=== PATIENT | male | born 1975 | race Caucasian/White ===

== ENCOUNTER 2016-10-12 03:00 | Emergency (ER) ==
[2016-10-12] MEDS ORDERED: NS 1,000 ML IV ONE (03:32)
[2016-10-12] MEDS ORDERED: ZOFRAN IV ONE ×2 (03:32→05:05)
[2016-10-12] MEDS ORDERED: DILAUDID IV ONE ×2 (03:32→05:05)
[2016-10-12] MEDS ORDERED: SODIUM CHLORIDE 0.9% INJ ONE (03:32)
[2016-10-12] MEDS ORDERED: PROTONIX IV ONE (03:32)
--- NOTE | 2016-10-12 03:39 | PROVIDER DOCUMENTATION ---
HPI-Abdominal Pain/GI Problem - General Chief Complaint: High Blood Sugar Stated Complaint: HIGH BLOOD SUGAR Time Seen by Provider: 10/12/16 03:30 Source: patient Allergies/Adverse Reactions: Patient Allergies Allergy/AdvReac Type Severity Reaction Status Date / Time metoclopramide HCl * Allergy Unknown Verified 10/12/16 03:27 [From [facility] Home Medications: Home Medication List Medication Instructions Recorded Confirmed Last Taken Type Amlodipine Besylate [Norvasc] 10 mg PO DAILY #30 tablet 02/17/16 10/12/16 Rx Escitalopram [Lexapro] 20 mg PO QAM #30 tablet 02/17/16 10/12/16 10/11/16 Rx Lipase/Protease/Amylase [Creon] 24,000 units PO TID CC #540 capsule 02/17/1603/2310/11/16 Rx Nadolol [Corgard] 40 mg PO DAILY #30 tablet 02/17/16 10/12/16 10/11/16 Rx Hydrocodone/APAP 5 mg/325 mg 1 each PO Q6H PRN PRN #30 tablet 10/06/16 10/12/16 10/11/16 Rx [[place]-5] Insulin Glargine [Lantus] 15 unit SUBQ NOW #90 insuln.pen 10/06/16 10/12/1602/20 Rx Multivitamins/Minerals [Centrum 1 each PO DAILY #0 tablet 10/06/16 10/12/1602/20 Rx Silver] Hydrocodone/Acetaminophen [[place] 1 each PO TID PRN PRN #15 tablet 10/12/16 Unknown Rx 7.5-325 Tablet] Insulin Aspart [Novolog Flexpen] 100 unit SQ 10/12/16 10/12/16 02:25 History Ondansetron Odt [Zofran 4 mg Odt] 4 mg PO Q6H PRN PRN #30 tablet 10/12/16 Unknown Rx Pantoprazole [Protonix] 40 mg PO DAILY@0700 #30 tablet 10/12/16 Unknown Rx - History of Present Illness-ABD Nature of Presenting Problems: pt6 w/hx recurrent pancreatits due etoh abuse /recent dx of dm -placed on insuline ..pt claim increase upper abdom pain for 24hrs //decrease apetite and nausea Abdominal Pain Onset Location: reports: epigastric Pain Radiation: reports: epigastric Quality of Pain: reports: burning Severity in ED: reports: moderate Onset/Duration: reports: 24 hours ago Timing: reports: still present Associated Symptoms: reports: heartburn, loss of appetite, nausea, vomiting Last BM: this morning Dark Stools Present?: reports: none noticed Rectal Bleeding: reports: none Rectal Pain: reports: none Bruising or Bleeding Gums?: No Similar Symptoms Previously?: No Recently seen or treated by another doctor?: No Review of Systems - Adult - REVIEW OF SYSTEMS - ADULT Constitutional: reports: see HPI Eyes: reports: see HPI All Other Systems: Reviewed and Negative Past History - Adult - PAST MEDICAL HISTORY-ADULT Review of Records: reports: Old Records Reviewed, Nursing Assessment Review, Medications Reviewed, Social history reviewed & non-contributory. Major Childhood Illnesses: reports: denies history Cardiovascular: reports: denies history, HTN Respiratory: reports: denies history Gastrointestinal: reports: pancreatitis, other (gastritis and esophagitis) Obstetrical/Gynecological: reports: denies history Genitourinary: denies: kidney disease, kidney stones, polycystic kidney disease , chronic UTI's Musculoskeletal: reports: denies history Neurological: reports: denies history Psychiatric: reports: depression Endocrine/Immune: reports: denies history Other Conditions: reports: denies history Additional History: Alcoholic - PRIOR SURGERIES/PROCEDURES Surgical/Procedure History: reports: EGD - PRIOR HOSPITALIZATIONS Prior Hospitalizations: reports: for similar symptoms - IMMUNIZATION STATUS Childhood Immunizations: See Nurse Assessment Flu Vaccine: See Nurse Assessment - FAMILY HISTORY Family History: reviewed, not pertinent - SOCIAL HISTORY Smoking: quit less than 1 year, less than 1 pack/day Substance Use: none presently/history of abuse, alcohol (last time 2 weeks ago) Living Situation: alone Physical Exam-General - PHYSICAL EXAM-ADULT Initial Vital Signs Reviewed: Yes - CONSTITUTIONAL General Appearance: alert, mild distress, thin - EYES Eyes: PERRL/EOMI - HEAD, EARS, NOSE, MOUTH & THROAT HENMT: normocephalic/atraumatic, normal ENT inspection, TMs normal, pharynx normal - NECK Neck: non-tender, full range of motion, supple - RESPIRATORY Respiratory: chest non-tender, lungs clear, normal breath sounds, no pleuratic chest pain, no respiratory distress, no accessory muscle use - CARDIOVASCULAR Cardiovascular: normal peripheral pulses, no edema, no gallop - GASTROINTESTINAL (ABDOMEN) Abdominal Exam: normal bowel sounds, soft, no organomegaly, no pulsatile mass, tenderness (epigastric and ruq) - LYMPHATIC Lymphatic: no adenopathy - MUSCULOSKELETAL Back Exam: normal inspection, no CVA tenderness, no vertebral tenderness Extremity: normal range of motion, non-tender, normal gait, normal inspection, no pedal edema, no calf tenderness, normal capillary refill - SKIN Integumentary: normal color, normal turgor, warm/dry - NEUROLOGIC 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 These instructions are being provided to you so you can have an understanding of how to care for yourself upon discharge. Upon discharge from the Emergency Department, you are responsible for making arrangements for follow-up care by a physician of your choice. Take all prescribed medications as directed. Return to the Emergency Department immediately for any new or worsening symptoms. You may call the Physician Referral phone number at [phone] to obtain a list of Physicians who are taking new patients. Prescriptions: Hydrocodone/Acetaminophen [[place] 7.5-325 Tablet] 1 each PO TID PRN PRN #15 tablet PRN Reason: Pain Pantoprazole [Protonix] 40 mg PO DAILY@0700 #30 tablet Ondansetron Odt [Zofran 4 mg Odt] 4 mg PO Q6H PRN PRN #30 tablet PRN Reason: Nausea And Vomiting Referrals: Darrell Tobias MD [Primary Care Provider] -
[2016-10-12 03:45] LABS: MANUAL DIFF NEEDED? NO; URINE CULTURE NEEDED? NO; URINE MICRO REVIEW NEEDED? NO; URINE SOURCE CLEAN CATCH
[2016-10-12 03:49] LABS: BASO% 0.4 % (0.0-0.8); EOS# 0.02 X1000 (0.0-0.7); EOS% 0.2 % (0.0-10.0); HEMATOCRIT 45.9 % (42.0-52.0); HEMOGLOBIN 16.1 g/dL (14.0-18.0); IMM GRAN# 0.04 X1000 (0.0-0.04); IMM GRAN% 0.4 % (0.0-0.5); LYMPH# 2.63 X1000 (1.2-3.4); LYMPH% 29.1 % (20.5-51.1); MCH 29.8 PG (27-31); MCHC 35.1 g/dL (33-37); MONO# 0.79 X1000 (0.11-0.59); MONO% 8.7 % (1.7-9.3); MPV 9.2 FL (7.4-10.4); NEUT% 61.2 % (42.2-75.2); PLT 248 X1000 (130-400)
[2016-10-12 03:50] LABS: BILIRUBIN URINE NEGATIVE (NEGATIVE); BLOOD URINE NEGATIVE (NEGATIVE); COLOR YELLOW; GLUCOSE URINE 100 mg/dL (NEGATIVE); LEUKOCYTES URINE NEGATIVE (NEGATIVE); NITRITE URINE NEGATIVE (NEGATIVE); PH URINE 5.5; PROTEIN URINE NEGATIVE (NEGATIVE); SP GRAVITY URINE 1.012; TURBIDITY URINE CLEAR (CLEAR); UR EPITHELIAL CELLS <10 /HPF (<10); URINE BACTERIA NEGATIVE /HPF; URINE RBC <10 /HPF (<10); URINE WBC <10 /HPF (<10); UROBILINOGEN URINE NORMAL (NORMAL)
[2016-10-12 04:28] LABS: AGAP 21; ALBUMIN 4.4 g/dL (3.5-5.0); ALKALINE PHOSPHATASE 96 U/L (32-122); AMYLASE 69 U/L (20-200); BUN 8 mg/dL (8-22); CHLORIDE 97 mmol/L (98-107); COSMO 283; GOT 27 U/L (10-34); GPT 52 U/L (10-44); LIPASE 14 U/L (13-60); POTASSIUM 3.7 mmol/L (3.5-5.1); SODIUM 140 mmol/L (136-145); TCO2 22 mmol/L (25-35); TOTAL BILIRUBIN 0.39 mg/dL (0.20-1.00)
[2016-10-12 05:25] VITALS: BP 131/88
== END 2016-10-12 05:37 | disposition home or self-care (01) ==
LOC: ED 03:00
DX: R10.13 Epigastric pain (principal); R11.2 Nausea with vomiting, unspecified; R12 Heartburn; R10.816 Epigastric abdominal tenderness; R10.811 Right upper quadrant abdominal tenderness; I10 Essential (primary) hypertension; F32.9 Major depressive disorder, single episode, unspecified; E11.9 Type 2 diabetes mellitus without complications; Z79.4 Long term (current) use of insulin; Z79.899 Other long term (current) drug therapy; Z87.891 Personal history of nicotine dependence
CPT/HCPCS: 80053; 81001; 82150; 82948; 83690; 85025; C9113; J1170; J2405; J7030; S0164

== ENCOUNTER 2016-10-13 23:14 | Emergency (ER) ==
--- NOTE | 2016-10-14 | PROVIDER DOCUMENTATION ---
HPI-Abdominal Pain/GI Problem - General Source: patient - History of Present Illness-ABD Nature of Presenting Problems: 41 YOWM WITH HX OF PANCREATITIS, WITH C/O PT STATES LUQ TENDERNESS. PT STATES HE IS A NEW DX DIABETIC. PT STATES HE THINKS HIS BLOOD SUGAR IS ELEVATED, BUT NOT SURE STATES HE DID NOT CHECK IT. Abdominal Pain Onset Location: reports: LUQ Pain Radiation: reports: no radiation Quality of Pain: reports: aching Severity in ED: reports: mild Onset/Duration: reports: 4-6 hours ago Timing: reports: still present Activities at Onset: reports: light activity Exposure to sick contacts?: No Modifying Factors: improves with: nothing Last BM: unsure Dark Stools Present?: reports: none noticed Rectal Bleeding: reports: none Rectal Pain: reports: none Emesis Description: reports: none Bruising or Bleeding Gums?: No Similar Symptoms Previously?: No Recently seen or treated by another doctor?: No <Omar Prather - Last Filed: 10/13/16 23:53> <Nigel Alba - Last Filed: 10/14/16 00:17> - General Stated Complaint: GENERAL Time Seen by Provider: 10/13/16 23:53 Allergies/Adverse Reactions: Patient Allergies Allergy/AdvReac Type Severity Reaction Status Date / Time metoclopramide HCl * Allergy Unknown Verified 10/12/16 03:27 [From [facility]] Home Medications: Home Medication List Medication Instructions Recorded Confirmed Last Taken Type Amlodipine Besylate [Norvasc] 10 mg PO DAILY #30 tablet 02/17/16 10/12/16 Rx Escitalopram [Lexapro] 20 mg PO QAM #30 tablet 02/17/16 10/12/16 10/11/16 Rx Lipase/Protease/Amylase [Creon] 24,000 units PO TID CC #540 capsule 02/17/1603/2310/11/16 Rx Nadolol [Corgard] 40 mg PO DAILY #30 tablet 02/17/16 10/12/16 10/11/16 Rx Hydrocodone/APAP 5 mg/325 mg 1 each PO Q6H PRN PRN #30 tablet 10/06/16 10/12/16 10/11/16 Rx [[place]-5] Insulin Glargine [Lantus] 15 unit SUBQ NOW #90 insuln.pen 10/06/16 10/12/1602/20 Rx Multivitamins/Minerals [Centrum 1 each PO DAILY #0 tablet 10/06/16 10/12/1602/20 Rx Silver] Hydrocodone/Acetaminophen [[place] 1 each PO TID PRN PRN #15 tablet 10/12/16 Unknown Rx 7.5-325 Tablet] Insulin Aspart [Novolog Flexpen] 100 unit SQ 10/12/16 10/12/16 02:25 History Ondansetron Odt [Zofran 4 mg Odt] 4 mg PO Q6H PRN PRN #30 tablet 10/12/16 Unknown Rx Pantoprazole [Protonix] 40 mg PO DAILY@0700 #30 tablet 10/12/16 Unknown Rx Review of Systems - Adult - REVIEW OF SYSTEMS - ADULT Constitutional: denies: chills, fever Eyes: reports: no symptoms reported Ears, Nose, Mouth & Throat: reports: no symptoms reported Cardiovascular: denies: chest pain, palpitations, syncope Respiratory: denies: cough, shortness of breath, wheezing Gastrointestinal: reports: abdominal pain (LUQ). denies: diarrhea, nausea, vomiting Genitourinary: reports: no symptoms reported Musculoskeletal: denies: back pain, neck pain Integumentary: reports: no symptoms reported Neurological: denies: dizziness/vertigo, headache/migraines, syncope Psychiatric: reports: no symptoms reported Endocrine: reports: no symptoms reported Hematologic/Lymphatic: reports: no symptoms reported Allergic/Immunologic: reports: no symptoms reported All Other Systems: Reviewed and Negative <Omar Prather - Last Filed: 10/13/16 23:53> Past History - Adult - PAST MEDICAL HISTORY-ADULT Review of Records: reports: Nursing Assessment Review, Medications Reviewed Cardiovascular: reports: HTN Gastrointestinal: reports: GERD, pancreatitis, other (gastritis and esophagitis) Genitourinary: denies: kidney disease, kidney stones, polycystic kidney disease , chronic UTI's Psychiatric: reports: depression Endocrine/Immune: reports: Diabetes Additional History: Alcoholic - PRIOR SURGERIES/PROCEDURES Surgical/Procedure History: reports: EGD - PRIOR HOSPITALIZATIONS Prior Hospitalizations: reports: for similar symptoms - IMMUNIZATION STATUS Childhood Immunizations: See Nurse Assessment Flu Vaccine: See Nurse Assessment - FAMILY HISTORY Family History: reviewed, not pertinent - SOCIAL HISTORY Substance Use: alcohol Alcohol Use Frequency: occasionally Number of drinks per typical drinking period:: 3-4 drinks Living Situation: alone <Omar Prather - Last Filed: 10/13/16 23:53> Physical Exam-General - CONSTITUTIONAL General Appearance: alert, mild distress - EYES Eyes: PERRL/EOMI, pink conjunctivae - HEAD, EARS, NOSE, MOUTH & THROAT HENMT: normocephalic/atraumatic, moist mucous membranes - NECK Neck: non-tender, full range of motion, supple - RESPIRATORY Respiratory: chest non-tender, lungs clear, normal breath sounds - CARDIOVASCULAR Cardiovascular: normal peripheral pulses, tachycardia - GASTROINTESTINAL (ABDOMEN) Abdominal Exam: normal bowel sounds, tenderness (LUQ) - LYMPHATIC Lymphatic: no adenopathy - MUSCULOSKELETAL Back Exam: normal inspection, no CVA tenderness, no vertebral tenderness Extremity: normal range of motion, non-tender - SKIN Integumentary: normal color, normal turgor, warm/dry - NEUROLOGIC Neurologic: grossly normal - PSYCHIATRIC Psych/Mental Status: oriented x 3 <Omar Prather - Last Filed: 10/13/16 23:53> Progress - PLAN OF CARE/RESULTS Progress/Plan/Lab Results: Orders Category Date Time Status Saline Loc DIRECTED Care 10/13/16 23:53 Inactive Hydromorphone [Dilaudid] Med 10/14/16 00:15 Discontinued 1 mg IM NOW ONE Ondansetron [Zofran] Med 10/14/16 00:15 Discontinued 4 mg IM NOW ONE Vital Signs Temp Pulse Resp BP Pulse Ox 10/13/16 23:30 99.0 F 133 H 20 155/112 97 metoclopramide HCl * [From Reglan] Allergy (Verified 10/12/16 03:27) Unknown Amlodipine Besylate [Norvasc] 10 mg PO DAILY #30 tablet 02/17/16 Escitalopram [Lexapro] 20 mg PO QAM #30 tablet 02/17/16 Lipase/Protease/Amylase [Creon] 24,000 units PO TID CC #540 capsule 02/17/16 Nadolol [Corgard] 40 mg PO DAILY #30 tablet 02/17/16 Hydrocodone/APAP 5 mg/325 mg [[place]-5] 1 each PO Q6H PRN PRN #30 tablet Insulin Glargine [Lantus] 15 unit SUBQ NOW #90 insuln.pen 10/06/16 Multivitamins/Minerals [Centrum Silver] 1 each PO DAILY #0 tablet 10/06/16 Hydrocodone/Acetaminophen [[place] 7.5-325 Tablet] 1 each PO TID PRN PRN #15 tablet 10/12/16 Insulin Aspart [Novolog Flexpen] 100 unit SQ 10/12/16 Ondansetron Odt [Zofran 4 mg Odt] 4 mg PO Q6H PRN PRN #30 tablet 10/12/16 Pantoprazole [Protonix] 40 mg PO DAILY@0700 #30 tablet 10/12/16 Laboratory 10/14/16 00:02 POC Glucose 169 H <Nigel Alba - Last Filed: 10/14/16 00:17> Departure <Omar Prather - Last Filed: 10/13/16 23:53> - Departure Time of Disposition Order: 00:11 Certified Medical Emergency: Emergent <Nigel Alba - Last Filed: 10/14/16 00:17> - Departure DIAGNOSIS: Fear associated with illness and body function Chronic pancreatitis Qualifiers: Pancreatitis type: alcohol induced Qualified Code(s): K86.0 - Alcohol-induced chronic pancreatitis Disposition: HOME 01 Condition: Stable Additional Instructions: Check your blood sugar if feeling bad to know what the blood sugar is. Take pain medications as prescribed. ED Follow Up Instructions: You have been treated by a care provider in the Emergency Department. These instructions are being provided to you so you can have an understanding of how to care for yourself upon discharge. Upon discharge from the Emergency Department, you are responsible for making arrangements for follow-up care by a physician of your choice. Take all prescribed medications as directed. Return to the Emergency Department immediately for any new or worsening symptoms. You may call the Physician Referral phone number at [phone] to obtain a list of Physicians who are taking new patients. Referrals: Darrell Tobias MD [Primary Care Provider] - Attestation - Scribe Verification/Attestation Scribe:: Omar Prather Acting as Scribe for:: Nigel Alba Scribe documention review:: This chart was documented by a scribe and accurately reflects the service the provider performed and the decisions made by the provider. <Omar Prather - Last Filed: 10/13/16 23:53> - Physician/ DUSTIN Attestation Patient care was provided by Advanced Practice Provider:: Yes Advanced Practice Provider:: Nigel Alba Advanced Practice Provider documentation review:: The Mid-level provider documentation, treatment plan and medical decision making was reviewed by the physician who agrees with all treatment and medical decision making by the MLP. <Nigel Alba - Last Filed: 10/14/16 00:17> Physician Attestation - Physician Attestation I, the provider, attest to the following statement:: Nigel Alba Physician documentation Attestation:: This documentation recorded by the scribe accurately reflects the service I personally performed and the decisions made by me. <Nigel Alba - Last Filed: 10/14/16 00:17>
[2016-10-14] MEDS ORDERED: DILAUDID IM ONE (00:15)
[2016-10-14] MEDS ORDERED: ZOFRAN IM ONE (00:15)
[2016-10-14 01:25] VITALS: BP 142/88
== END 2016-10-14 01:25 | disposition home or self-care (01) ==
LOC: ED 23:14
DX: K86.0 Alcohol-induced chronic pancreatitis (principal); R10.12 Left upper quadrant pain; R10.812 Left upper quadrant abdominal tenderness; R00.0 Tachycardia, unspecified; E11.9 Type 2 diabetes mellitus without complications; I10 Essential (primary) hypertension; F32.9 Major depressive disorder, single episode, unspecified; Z79.4 Long term (current) use of insulin; Z79.899 Other long term (current) drug therapy
CPT/HCPCS: 82948; 96372; J1170; J2405

== ENCOUNTER 2016-10-23 20:24 | Inpatient (IN) ==
--- NOTE | 2016-10-23 20:31 | PROVIDER DOCUMENTATION ---
[id number] Abuse/Overdose - General Stated Complaint: UNRESPONSIVE Time Seen by Provider: 10/23/16 20:28 Source: patient, EMS Unable to obtain history due to:: altered Allergies/Adverse Reactions: Allergies Allergy/AdvReac Type Severity Reaction Status Date / Time metoclopramide HCl * AdvReac DYSTONIA Verified 10/23/16 20:40 [From Reglan] Home Medications: Home Medication List Medication Instructions Recorded Confirmed Last Taken Type Amlodipine Besylate [Norvasc] 10 mg PO DAILY #30 tablet 02/17/16 10/24/16 09:00 Rx Escitalopram [Lexapro] 20 mg PO QAM #30 tablet 02/17/16 10/24/16 10/14/16 21:00 Rx Nadolol [Corgard] 40 mg PO DAILY #30 tablet 02/17/16 10/24/16 10/14/16 09:00 Rx Insulin Aspart [Novolog Flexpen] 17 units SQ TID 10/12/16 10/24/16 10/12/16 02: 25 History Insulin Glargine [Lantus] 18 unit SUBQ QAM 10/15/16 10/24/16 10/14/16 09:00 History Lipase/Protease/Amylase [Creon] 24,000 units PO DAILY 10/15/16 10/24/16 Unknown History Hydrocodone/APAP 7.5 mg/325 mg 1 each PO Q6H PRN PRN #30 tablet 10/19/16 Unknown Rx [[place]-7.5] Pantoprazole [Protonix] 40 mg PO BID #60 tablet 10/19/16 10/24/16 Unknown Rx Sucralfate [Carafate Liquid] 1 gm PO Q6HR #120 udc 10/19/16 Unknown Rx - History of Present Illness-Drug/Alcohol Nature of Presenting Problem: Pt is a 41 yom who presents to ER via EMS after being found lying on the floor at an AA meeting. Pt has hx of EtOH abuse and pancreatitis. EMS reports pt had blood sugar of 276 when they arrived on scene and was tachycardic.Pt has decreased responsiveness, but is alert and responds to stimuli. This episode of drinking or use began:: just prior to arrival Severity: reports: moderate Associated Symptoms: reports: fatigue, syncope (possible), trouble walking. denies: vomiting, weakness Review of Systems - Adult - REVIEW OF SYSTEMS - ADULT ROS:: limited per condition Constitutional: denies: chills, fever, fatique, night sweats, weight gain, weight loss Eyes: reports: no symptoms reported Ears, Nose, Mouth & Throat: reports: no symptoms reported Cardiovascular: reports: no symptoms reported Respiratory: reports: no symptoms reported Gastrointestinal: reports: no symptoms reported Genitourinary: reports: no symptoms reported Musculoskeletal: reports: no symptoms reported Integumentary: reports: no symptoms reported Neurological: reports: no symptoms reported Psychiatric: reports: no symptoms reported Endocrine: reports: no symptoms reported Hematologic/Lymphatic: reports: no symptoms reported Allergic/Immunologic: reports: no symptoms reported All Other Systems: Reviewed and Negative Past History - Adult - PAST MEDICAL HISTORY-ADULT Review of Records: reports: Nursing Assessment Review, Medications Reviewed Cardiovascular: reports: HTN Gastrointestinal: reports: GERD, pancreatitis, other (gastritis and esophagitis) Genitourinary: denies: kidney disease, kidney stones, polycystic kidney disease , chronic UTI's Psychiatric: reports: depression Endocrine/Immune: reports: Diabetes Additional History: Alcoholic - PRIOR SURGERIES/PROCEDURES Surgical/Procedure History: reports: EGD - PRIOR HOSPITALIZATIONS Prior Hospitalizations: reports: for similar symptoms - IMMUNIZATION STATUS Childhood Immunizations: See Nurse Assessment Flu Vaccine: See Nurse Assessment Physical Exam-General - PHYSICAL EXAM-ADULT Exam Limited by: pt altered - CONSTITUTIONAL General Appearance: alert, moderate distress, lethargic, obtunded. negative: appears well, no apparent distress, mild distress - PSYCHIATRIC Psych/Mental Status: anxious, depressed affect, other (decreased responsiveness but is awake). negative: normal mood/affect, normal thought content, normal thought process, oriented x 3, disheveled Progress - PLAN OF CARE/RESULTS Progress/Plan/Lab Results: Vital Signs - 24 hr 10/23/16 21:11 Temperature 97.5 F L Pulse Rate 106 H Respiratory 22 Rate Blood Pressure 115/82 O2 Sat by Pulse 98 Oximetry Orders Category Date Time Status Cardiac Monitoring DIRECTED Care 10/23/16 20:29 Active Saline Loc NOW Care 10/23/16 20:29 Active CHEST-PORTABLE [RAD] Stat Exams 10/23/16 20:[address] ABD/PELVIS W/ IV CONT ONLY [CT] Stat Exams 10/23/16 20:32 Taken HEAD W/O CONTRAST [CT] Stat Exams 10/23/16 20:30 Taken ACETAMINOPHEN [TDM] Stat Lab 10/23/16 20:35 Completed ALCOHOL BLOOD Stat Lab 10/23/16 20:35 Completed AMYLASE [CHEM] Stat Lab 10/23/16 20:35 Completed CBC WITH ELECTRONIC DIFF [HEME] Stat Lab 10/23/16 20:52 Completed CK PROFILE [SP CHEM] Stat Lab 10/23/16 20:35 Completed COMPREHENSIVE METABOLIC PANEL [CHEM] Stat Lab 10/23/16 20:35 Completed LIPASE [CHEM] Stat Lab 10/23/16 20:35 Completed MAGNESIUM [CHEM] Stat Lab 10/23/16 20:35 Completed PRO B-NATRIURETIC PEPTIDE Stat Lab 10/23/16 20:35 Completed PROTIME WITH INR [COAG] Stat Lab 10/23/16 20:35 Completed PTT [COAG] Stat Lab 10/23/16 20:35 Completed SALICYLATES [TDM] Stat Lab 10/23/16 20:35 Completed TROPONIN T Stat Lab 10/23/16 20:35 Completed URINALYSIS W/POSS RFLX CULT [URINALYSIS] Stat Lab 10/23/16 20:52 Completed URINE DRUG SCREEN Stat Lab 10/23/16 20:52 Completed EKG [EKG] Stat Ther 10/23/16 20:29 Ordered Laboratory Tests 10/23/16 10/23/16 10/23/16 20:35 20:35 20:35 WBC RBC Hgb Hct MCV MCH MCHC RDW Std Deviation Plt Count MPV Immature Gran % (Auto) Neut % (Auto) Lymph % (Auto) [place] % (Auto) Eos % (Auto) Baso % (Auto) Immature Gran # (Auto) Neut # (Auto) Lymph # (Auto) [place] # (Auto) Eos # (Auto) Baso # (Auto) PT 10.2 INR 0.96 PTT (Actin FS) 26.6 Sodium 140 Potassium 3.9 Chloride 98 Carbon Dioxide 20 L Anion Gap 22 BUN 14 Creatinine 1.0 Estimated GFR/1.73 m2 > 60 BUN/Creatinine Ratio 14 Glucose 269 H Calculated Osmolality 289 Calcium 9.2 Magnesium 2.1 Total Bilirubin 0.20 AST 21 ALT 25 Alkaline Phosphatase 110 Creatine Kinase 42 Troponin T Geq-Y-Kaumvhedcad Pept 22 Total Protein 6.6 Albumin 4.5 Globulin 2.1 Albumin/Globulin Ratio 2.1 Amylase 58 Lipase 18 Urine Source Urine Color Urine Turbidity Urine pH Ur Specific [place] Urine Protein Ur Glucose (Stick) Ur Ketones (Stick) Urine Blood Urine Nitrite Urine Bilirubin Urobilinogen Dipstick Urine Leukocytes Urine WBC (Auto) Urine RBC (Auto) U Epithel Cells (Auto) Urine Bacteria (Auto) Salicylates < 3.00 L Urine Opiates Screen Ur Oxycodone Screen Ur Methadone, Qual Acetaminophen < 1.2 L Ur Barbiturates Screen Ur Phencyclidine Scrn Ur Amphetamines Screen U Benzodiazepines Scrn Urine Cocaine Screen U Cannabinoids Screen Plasma/Serum Ethyl Alc 10/23/16 10/23/16 10/23/16 20:35 20:35 20:52 WBC 8.66 RBC 4.83 Hgb 14.3 Hct 40.7 L MCV 84.3 MCH 29.6 MCHC 35.1 RDW Std Deviation 13.2 Plt Count 226 MPV 9.5 Immature Gran % (Auto) 0.6 H Neut % (Auto) 70.9 Lymph % (Auto) 21.0 [place] % (Auto) 6.7 Eos % (Auto) 0.6 Baso % (Auto) 0.2 Immature Gran # (Auto) 0.05 H Neut # (Auto) 6.14 Lymph # (Auto) 1.82 [place] # (Auto) 0.58 Eos # (Auto) 0.05 Baso # (Auto) 0.02 PT INR PTT (Actin FS) Sodium Potassium Chloride Carbon Dioxide Anion Gap BUN Creatinine Estimated GFR/1.73 m2 BUN/Creatinine Ratio Glucose Calculated Osmolality Calcium Magnesium Total Bilirubin AST ALT Alkaline Phosphatase Creatine Kinase Troponin T < 0.010 Ewi-D-Txktyhxtqea Pept Total Protein Albumin Globulin Albumin/Globulin Ratio Amylase Lipase Urine Source Urine Color Urine Turbidity Urine pH Ur Specific [place] Urine Protein Ur Glucose (Stick) Ur Ketones (Stick) Urine Blood Urine Nitrite Urine Bilirubin Urobilinogen Dipstick Urine Leukocytes Urine WBC (Auto) Urine RBC (Auto) U Epithel Cells (Auto) Urine Bacteria (Auto) Salicylates Urine Opiates Screen Ur Oxycodone Screen Ur Methadone, Qual Acetaminophen Ur Barbiturates Screen Ur Phencyclidine Scrn Ur Amphetamines Screen U Benzodiazepines Scrn Urine Cocaine Screen U Cannabinoids Screen Plasma/Serum Ethyl Alc 10/23/16 10/23/16 20:52 20:52 WBC RBC Hgb Hct MCV MCH MCHC RDW Std Deviation Plt Count MPV Immature Gran % (Auto) Neut % (Auto) Lymph % (Auto) [place] % (Auto) Eos % (Auto) Baso % (Auto) Immature Gran # (Auto) Neut # (Auto) Lymph # (Auto) [place] # (Auto) Eos # (Auto) Baso # (Auto) PT INR PTT (Actin FS) Sodium Potassium Chloride Carbon Dioxide Anion Gap BUN Creatinine Estimated GFR/1.73 m2 BUN/Creatinine Ratio Glucose Calculated Osmolality Calcium Magnesium Total Bilirubin AST ALT Alkaline Phosphatase Creatine Kinase Troponin T Sqq-X-Aalisznspif Pept Total Protein Albumin Globulin Albumin/Globulin Ratio Amylase Lipase Urine Source CATH Urine Color STRAW Urine Turbidity CLEAR Urine pH 6.5 Ur Specific [place] 1.001 Urine Protein NEGATIVE Ur Glucose (Stick) 300 A Ur Ketones (Stick) 10 A Urine Blood NEGATIVE Urine Nitrite NEGATIVE Urine Bilirubin NEGATIVE Urobilinogen Dipstick NORMAL Urine Leukocytes NEGATIVE Urine WBC (Auto) <10 Urine RBC (Auto) <10 U Epithel Cells (Auto) <10 Urine Bacteria (Auto) NEGATIVE Salicylates Urine Opiates Screen NONE DETECTED Ur Oxycodone Screen NONE DETECTED Ur Methadone, Qual NONE DETECTED Acetaminophen Ur Barbiturates Screen NONE DETECTED Ur Phencyclidine Scrn NONE DETECTED Ur Amphetamines Screen NONE DETECTED U Benzodiazepines Scrn NONE DETECTED Urine Cocaine Screen NONE DETECTED U Cannabinoids Screen NONE DETECTED Plasma/Serum Ethyl Alc - EKG 1 Time of EKG reading by physician:: 00:32 EKG Read and Signed by:: Robert Christine EKG Interpretation (*Must complete 3 of following elements*): Normal Rate: 139 Rhythm: Sinus tachycardia - CT/MRI 1 CT Study: Abdomen, Pelvis Impression: See EMR Report (Pancreatic cyst, similar to the recent; No adjacent inflammation; There is at least a partial SBO; No other change) CT Results: See report 2 CT Study: Head Impression: See EMR Report CT Results: Negative - CONSULTS/PCP/HOSPITALIST Notification #1 *Consult/PCP/Hospitalist*: Dr. Beaulieu (Hospitalist) Time Discussed: 23:20 Consult Disposition: Admit Departure - Departure Time of Disposition Order: 23:19 DIAGNOSIS: Altered mental status Qualifiers: Altered mental status type: unspecified Qualified Code(s): R41.82 - Altered mental status, unspecified Disposition: ADMITTED INPATIENT 09 Certified Medical Emergency: Emergent Condition: Stable Attestation - Scribe Verification/Attestation Scribe:: Dez Meeks Acting as Scribe for:: Robert Christine Scribe documention review:: This chart was documented by a scribe and accurately reflects the service the provider performed and the decisions made by the provider.
[2016-10-23 21:04] LABS: MANUAL DIFF NEEDED? NO; URINE CULTURE NEEDED? NO; URINE MICRO REVIEW NEEDED? NO; URINE SOURCE CATH
[2016-10-23 21:08] LABS: INR 0.96; PROTIME 10.2 Seconds (9.2-11.7); PTT 26.6 Seconds (22.0-36.0)
[2016-10-23 21:08] LABS: BASO% 0.2 % (0.0-0.8); EOS# 0.05 X1000 (0.0-0.7); EOS% 0.6 % (0.0-10.0); HEMATOCRIT 40.7 % (42.0-52.0); HEMOGLOBIN 14.3 g/dL (14.0-18.0); IMM GRAN# 0.05 X1000 (0.0-0.04); IMM GRAN% 0.6 % (0.0-0.5); LYMPH# 1.82 X1000 (1.2-3.4); MCH 29.6 PG (27-31); MCHC 35.1 g/dL (33-37); MCV 84.3 FL (81-99); MONO# 0.58 X1000 (0.11-0.59); MONO% 6.7 % (1.7-9.3); MPV 9.5 FL (7.4-10.4); NEUT% 70.9 % (42.2-75.2); PLT 226 X1000 (130-400); RBC 4.83 XMIL (4.7-6.1)
[2016-10-23 21:10] LABS: BILIRUBIN URINE NEGATIVE (NEGATIVE); BLOOD URINE NEGATIVE (NEGATIVE); COLOR STRAW; GLUCOSE URINE 300 mg/dL (NEGATIVE); LEUKOCYTES URINE NEGATIVE (NEGATIVE); NITRITE URINE NEGATIVE (NEGATIVE); PH URINE 6.5; PROTEIN URINE NEGATIVE (NEGATIVE); SP GRAVITY URINE 1.001; TURBIDITY URINE CLEAR (CLEAR); UROBILINOGEN URINE NORMAL (NORMAL)
[2016-10-23 21:14] LABS: ACETAMINOPHEN < 1.2 ug/mL (10-30); AGAP 22; ALBUMIN 4.5 g/dL (3.5-5.0); ALKALINE PHOSPHATASE 110 U/L (32-122); AMYLASE 58 U/L (20-200); BUN 14 mg/dL (8-22); CALCIUM 9.2 mg/dL (8.8-10.2); CHLORIDE 98 mmol/L (98-107); CK PROFILE 42 U/L (24-204); COSMO 289; GOT 21 U/L (10-34); GPT 25 U/L (10-44); LIPASE 18 U/L (13-60); MAGNESIUM 2.1 mg/dL (1.5-2.7); POTASSIUM 3.9 mmol/L (3.5-5.1); SODIUM 140 mmol/L (136-145); TCO2 20 mmol/L (25-35); TOTAL PROTEIN 6.6 g/dL (6.3-8.3)
[2016-10-23 21:16] LABS: UR EPITHELIAL CELLS <10 /HPF (<10); URINE BACTERIA NEGATIVE /HPF; URINE RBC <10 /HPF (<10); URINE WBC <10 /HPF (<10)
[2016-10-23 21:36] LABS: UR AMPHETAMINES QUAL NONE DETECTED (NONE DETECT); UR BARBITUATES QUAL NONE DETECTED (NONE DETECT); UR BENZODIAZEPIN QUAL NONE DETECTED (NONE DETECT); UR CANNABINOIDS QUAL NONE DETECTED (NONE DETECT); UR COCAINE QUAL NONE DETECTED (NONE DETECT); UR METHADONE QUAL NONE DETECTED (NONE DETECT); UR OPIATES QUAL NONE DETECTED (NONE DETECT); UR OXYCODONE QUAL NONE DETECTED (NONE DETECT); UR PCP QUAL NONE DETECTED (NONE DETECT)
[2016-10-24] MEDS ORDERED: NS 1,000 ML IV ONE (01:30)
[2016-10-24] MEDS ORDERED: LOPRESSOR 10 MG in NS 50 ML IV ONE ×2 (01:30→06:02)
[2016-10-24] MEDS ORDERED: ZOFRAN IV ONE (02:26)
[2016-10-24] MEDS: LOVENOX SUBQ SCH (05:02)
[2016-10-24] MEDS: NS 1,000 ML IV SCH ×2 (05:02→15:43)
--- NOTE | 2016-10-24 05:28 | EKG Report ---
Test Performed on : 10/24/2016 00:32:05 AM Test Reason : Chest Pain Blood Pressure : / mmHG Vent. Rate : 139 BPM Atrial Rate : 139 BPM P-R Int : 136 ms QRS Dur : 100 ms QT Int : 290 ms P-R-T Axes : 047 081 052 degrees QTc Int : 441 ms Sinus tachycardia. Otherwise normal ECG When compared with ECG of 15-OCT-2016 00:50, (Unconfirmed) No significant change was found Unconfirmed Result
[2016-10-24] MEDS: NORCO-7.5 PO PRN ×3 (05:37→19:22)
[2016-10-24] MEDS ORDERED: LANOXIN IV ONE (06:02)
[2016-10-24] MEDS: HUMALOG SUBQ SCH ×4 (06:22→20:55)
[2016-10-24 06:59] LABS: ALLEN TEST YES; BE 1.6 mmoll (-3.0-3.0); BLOOD TYPE ARTERIAL; DRAW SITE R RADIAL; METHB 1.6 % (0.0-1.5); O2(CT) 20.8 mL/dL (15.0-23.0); PCO2(98.6) 34 mmHg (35-45); PO2(98.6) 89 mmHg (60-100); SAMPLE BLOOD; SAO2 99.3 % (95.0-100.0); THB 15.5 g/dL (11.5-17.4); pH(98.6) 7.47 (7.35-7.45)
[2016-10-24 07:01] LABS: MODALITY ROOM AIR
--- NOTE | 2016-10-24 07:04 | HISTORY AND PHYSICAL ---
PRIMARY CARE PROVIDER: Dr. Darrell Tobias. CHIEF COMPLAINT: Unresponsive. HISTORY OF PRESENT ILLNESS: This is a 41-year-old male who frequents our Hospital. He has a longstanding history of alcohol abuse and alcoholic pancreatitis and was recently admitted on 10/15/2016 for abdominal pain. He was newly diagnosed insulin dependent diabetic, which has been attributed to his chronic pancreatitis. Last hemoglobin A1c was 10.1. At any rate, he states that he has not been drinking and has been attending AA meetings. He was called to an AA meeting where he was found lying on the floor unresponsive. Blood sugar was 276 and the patient was noted to be tachycardic on arrival with very decreased responsiveness; however, he did respond to stimulus. In the emergency room a laboratory workup and a CT of his head and abdomen were obtained. The head showed no acute intracranial process. The abdomen showed pancreatic cyst similar to recent CT with no adjacent inflammation. It did note a small bowel obstruction. No other changes. EKG showed sinus tachycardia at 139. He will be admitted to the ICU for further evaluation and treatment. PAST MEDICAL HISTORY: 1. Alcohol abuse. Reportedly has not drank in over a month. 2. Chronic pancreatitis secondary to alcohol abuse. 3. Chronic liver disease secondary to alcohol abuse. 4. History of liver cirrhosis with esophageal varices. 5. Hypertension. 6. Acute kidney injury. This was secondary to hepatorenal syndrome and did require hemodialysis. 7. Depression. 8. History of alcohol withdrawal with delirium. 9. C. difficile intoxication. SURGICAL HISTORY: The patient denies past surgeries. SOCIAL HISTORY: Lives in [place]. He is . Denies illicit drug use or abuse. Has apparently not drank in over a month. Denies tobacco abuse. States he does occasionally use smokeless tobacco. FAMILY HISTORY: Positive for an uncle with lung cancer. Paternal grandmother and grandmother and aunt had diabetes mellitus. ALLERGY: Reglan. HOME MEDICATIONS: A home medications a list has not been reconciled. An order will be placed for nursing to reconcile home medications. REVIEW OF SYSTEMS: Fourteen point review of systems was attempted with the patient, but he was noted to have altered mentation. He denied drinking and did not answer any other questions. Pertinent positives are listed above in the HPI. PHYSICAL EXAMINATION: VITAL SIGNS: Temperature 97.5 degrees, pulse 149, sinus tachycardia. Respirations 20. Blood pressure 140/94, oxygen saturation 100% on room air. GENERAL: Disoriented 41-year-old male lying in the ER stretcher. Appears to be in no acute distress. HEENT: Head is atraumatic, normocephalic. Pupils equal, round, round reactive to light. Extraocular eye movements could not be tested as patient will not follow commands. Sclerae is anicteric. Conjunctivae is pink. Oral mucosa is dry. NECK: Supple. Trachea is midline. S1, S2 appreciated. Regular rhythm. Sinus tachycardia noted on monitor. No murmurs, gallops, rubs. LUNGS: Clear to auscultation bilaterally. No rhonchi, wheezes or rales. ABDOMEN: Soft, nondistended, nontender. Bowel sounds present in all 4 quadrants. Normoactive. No pulsatile mass. No organomegaly. EXTREMITIES: No clubbing, cyanosis, or edema. 2+ pedal pulses. NEUROLOGICAL: The patient does not fully respond to questioning. He will not answer questions about orientation. He also will not follow commands to evaluate the cranial nerves. DIAGNOSTIC DATA: CT of the head showed no acute intracranial process. CT of the abdomen did show chronic changes of the pancreas which are similar to previous CT and a partial small-bowel obstruction. LABORATORY DATA: CBC within normal limits. Coags within normal limits. Sodium 140, potassium 3.9, chloride 98, carbon dioxide 20, BUN 14, creatinine 1. Glucose 269, magnesium 2.1. CK and troponin within normal limits. Urine unremarkable. Toxicology screen is negative. Alcohol screening is negative. PLAN: 1. Syncope of unknown etiology. Echocardiogram and carotid ultrasound in a.m. 2. Encephalopathy. No known unknown etiology an arterial blood gas is pending. The patient again does reflex to stimulus, but does not follow commands well. 3. Sinus tachycardia. Continue patient's beta blockers. Give metoprolol 10 mg IV push in the emergency room. Normal saline at 100 mL an hour after a 1 L normal saline bolus. The patient will be placed in the ICU for close monitoring. 4. Insulin-dependent diabetes mellitus. Orders in place for nursing to reconcile home medications. We will give sliding scale insulin. 5. Hypertension. Continue Norvasc. Further recommendations per patient's clinical course. Dictated by RUFUS Platt for Jesus Beaulieu MD
--- NOTE | 2016-10-24 07:36 | Diag Imaging Result Document ---
PROCEDURE NAME: CHEST-PORTABLE - 10/23/2016 PORTABLE CHEST: COMPARISON: Compared to 10/23/2016. FINDINGS: Poor inspiratory effort. The heart is borderline mildly prominent. The vessels are not distended. No consolidation. No pleural effusions identified. IMPRESSION: Negative chest.
[2016-10-24] MEDS: ZOFRAN IV PRN ×3 (07:39→19:23)
--- NOTE | 2016-10-24 07:59 | Diag Imaging Result Document ---
PROCEDURE NAME: CT ABD/PELVIS W/ IV CONT ONLY - 10/23/2016 CT ABDOMEN PELVIS WITH INTRAVENOUS CONTRAST, 10/23/2016: A CT dose reduction protocol was used. COMPARISON: 10/01/2016. FINDINGS: The lung bases are clear and the heart size is normal. Stable patchy lucencies in the liver. Stable pancreatic pseudocyst at the pancreatic body. Stable severe pancreatic atrophy. Spleen size remains borderline. There is extremely severe patient motion artifact. There are some dilated loops of small bowel, nonspecific. There may be a partial small- bowel obstruction or ileus. This is probably caused by the pancreatic process. The more distal bowel further away from this is collapsed and normal in appearance. Bony structures are intact. IMPRESSION: 1. Stable severe pancreatic atrophy and pseudocyst. 2. Small-bowel dilation in the region of the pancreas. There is probably partial obstruction or ileus as a result. 3. Stable patchy lucencies in the liver. MTDD
[2016-10-24] MEDS: CORGARD PO SCH (08:31)
[2016-10-24] MEDS: CREON PO SCH (08:31)
[2016-10-24] MEDS: NORVASC PO SCH (08:32)
[2016-10-24] MEDS ORDERED: LEXAPRO PO SCH (09:00)
[2016-10-24] MEDS ORDERED: PROTONIX PO SCH (09:00)
--- NOTE | 2016-10-24 09:11 | Diag Imaging Result Document ---
PROCEDURE NAME: HEAD W/O CONTRAST - 10/23/[address]: A CT dose reduction protocol was used. COMPARISON: None. FINDINGS: The ventricles and sulci are normal in size and contour. There is no mass, hemorrhage, or evidence of acute ischemia. The bony calvaria is intact. The visualized paranasal sinuses and mastoid air cells are clear. IMPRESSION: Negative head CT. MTDD
[2016-10-24 09:54] LABS: HEMOGLOBIN A1C 8.6 % (4.8-6.0)
[2016-10-24] MEDS ORDERED: SODIUM CHLORIDE 0.9% INJ SCH (13:00)
[2016-10-24] MEDS: PROTONIX IV SCH (13:20)
--- NOTE | 2016-10-24 16:07 | PROGRESS NOTE ---
DATE: 10/24/2016 SUBJECTIVE: Patient has been admitted by the hospitalist overnight. Apparently he had went on an alcohol drinking binge yesterday and subsequently had development of severe pain in his epigastrium. Went to an AA meeting where he had a spell of severe pain and ambulance was summoned and he was brought in for further evaluation. By that time, blood alcohol level was negative. The patient says he had been binge drinking yesterday. He had been sober for about a month prior to that. He complains of severe abdominal pain. OBJECTIVE: Vital signs: Afebrile, pulse 145, respirations 16, blood pressure 139/97. CV: Tachycardia, regular rhythm. Lungs: CTA. Abdomen: Soft. Active bowel sounds. Diffuse tenderness across the upper abdomen, most prominent right epigastrium. Extremities: No calf tenderness, cords, or edema. Neurologic: Cranial nerves 2 through 12 are intact. Nonfocal. LAB DATA: Reviewed from yesterday shows white count 8.6, hemoglobin 14.3, platelets 226,000. INR 0.96. ABG this morning is satisfactory on room air, 7.47 pH, pCO2 34, PO2 89, HC03 26. CMP is normal with normal amylase and lipase. ASSESSMENT: 1. Chronic pancreatitis with pancreatic pseudocyst. 2. Lucencies in the liver per repeat CAT scans. 3. Alcoholism, relapsing. 4. 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 5. Remote history of Clostridium difficile colitis. 6. Depression. PLAN: For now continue him on bowel rest. Monitor labs in the morning to include BMP, magnesium, TSH, CBC. Continue IV hydration. Continue nadolol, Creon, Lexapro, Norvasc, [place] for pain, Lovenox for prophylaxis of DVT. Place him back on PPI as he had the recent ulcerations in his duodenum. [employer] the patient to quit alcohol. He is aware.
--- NOTE | 2016-10-24 18:33 | ECHO REPORT ---
ORDER DATE: 10/24/2016 MEASUREMENTS: Left ventricular internal diameter in diastole 4.2, in systolic diameter 2.8, septal thickness 1.5, posterior wall thickness 1.2, left atrium 3.5, aortic root 3.4. SUMMARY: 1. Fair quality acoustic windows. 2. Aortic, mitral, tricuspid and pulmonic valves are without obstruction abnormality. The aortic root is normal size. 3. Normal left ventricular chamber size with mild concentric left hypertrophy is suggested. Estimated left ejection fraction approximately 65%. No regional wall motion at evident. Doppler suggests grade 1 left ventricular diastolic dysfunction. 4. Left atrium, right atrium, right ventricle are of normal size with grossly preserved right ventricular systolic performance. 5. No pericardial effusion. 6. Appearance of inferior vena cava suggests normal central venous pressure. CONCLUSION: 1. No significant valvular abnormality. 2. Mild concentric left hypertrophy. 3. Estimate left ejection fraction 65%. 4. Doppler suggests grade 1 left ventricular diastolic dysfunction.
[2016-10-25] MEDS: PROTONIX IV SCH ×2 (00:06→12:55)
[2016-10-25] MEDS: NS 1,000 ML IV SCH ×2 (00:06→10:49)
[2016-10-25] MEDS: ZOFRAN IV PRN ×3 (00:06→12:34)
[2016-10-25] MEDS: NORCO-7.5 PO PRN ×2 (00:30→06:29)
[2016-10-25] MEDS: LOVENOX SUBQ SCH (05:18)
[2016-10-25 05:25] LABS: MANUAL DIFF NEEDED? NO
[2016-10-25 05:51] LABS: BASO% 0.2 % (0.0-0.8); EOS# 0.02 X1000 (0.0-0.7); EOS% 0.4 % (0.0-10.0); HEMATOCRIT 34.3 % (42.0-52.0); HEMOGLOBIN 11.7 g/dL (14.0-18.0); LYMPH# 1.57 X1000 (1.2-3.4); LYMPH% 31.5 % (20.5-51.1); MCH 29.7 PG (27-31); MCHC 34.1 g/dL (33-37); MCV 87.1 FL (81-99); MONO# 0.28 X1000 (0.11-0.59); MONO% 5.6 % (1.7-9.3); MPV 8.9 FL (7.4-10.4); NEUT% 62.3 % (42.2-75.2); PLT 184 X1000 (130-400); RBC 3.94 XMIL (4.7-6.1)
[2016-10-25 05:55] LABS: AGAP 12; BUN 8 mg/dL (8-22); CALCIUM 8.2 mg/dL (8.8-10.2); CHLORIDE 105 mmol/L (98-107); COSMO 280; MAGNESIUM 1.8 mg/dL (1.5-2.7); POTASSIUM 3.4 mmol/L (3.5-5.1); SODIUM 140 mmol/L (136-145); TCO2 23 mmol/L (25-35)
[2016-10-25] MEDS: HUMALOG SUBQ SCH ×3 (06:12→15:41)
[2016-10-25] MEDS: CORGARD PO SCH (08:24)
[2016-10-25] MEDS: NORVASC PO SCH (08:25)
[2016-10-25] MEDS: CREON PO SCH (08:25)
[2016-10-25] MEDS ORDERED: NORCO-7.5 PO PRN (08:26)
[2016-10-25] MEDS ORDERED: LEXAPRO PO SCH (09:00)
[2016-10-25 17:12] VITALS: BP 124/90
--- NOTE | 2016-10-26 10:57 | DISCHARGE SUMMARY ---
ADMISSION DATE: 10/23/2016 DISCHARGE DATE: 10/25/2016 DIAGNOSES: 1. Syncope without definite etiology. 2. History of longstanding alcoholism with patient admitting to alcohol drinking binge for 24 hours prior to admission. 3. Chronic pancreatitis with pancreatic pseudocyst. Consideration for pancreatic mass. 4. Nonspecific liver lesions. 5. Cirrhosis of the liver. 6. History of encephalopathy. 7. Sinus tachycardia. 8. Insulin-dependent diabetes mellitus. 9. Hypertension. 10. Depression. 11. Remote history of renal insufficiency related to hepatorenal syndrome requiring treatment in the ICU within the past year and a half. 12. History of Clostridium difficile colitis remotely. PROCEDURES: 1. Chest x-ray, negative. 2. CT scan of the head, without contrast, negative. 3. CT abdomen and pelvis with IV contrast only revealing severe pancreatic atrophy and pseudocyst stable. Small bowel dilation in the region of the pancreas possibly representing ileus. Also stable patchy lucencies in the liver. 4. Echocardiogram showing EF of 65%. No valvular abnormality. Mild concentric left ventricle hypertrophy grade 1, left ventricular diastolic dysfunction. 5. Carotid Dopplers negative. REASON FOR ADMISSION AND HOSPITAL COURSE: The patient is a 41-year-old white male followed in my medical practice who suffers from long-standing alcoholism and has had chronic pancreatitis and pancreatic pseudocyst. He has been followed by Dr. Encarnacion in this regard. He also suffers from cirrhosis. Dr. Encarnacion has had him scheduled for an outpatient evaluation per HOLLIE Sigala, in [place] for additional studies to his pancreas via ultrasound. The patient had come in with a syncopal event that occurred at an AA meeting. When I saw the patient later during the hospitalization he told me he had been drinking binge drinking for 24 hours prior to the admission. His blood alcohol level on admission was negative. There had been no history of seizure noted by witnesses. Patient had workup to include that as listed as above to include the negative carotids, echocardiogram, CT head, stable abdominal and pelvis CT. Patient stooled prior to discharge and was eating well. Monitored in the ICU without dysrhythmias. He did suffer from sinus tachycardia initially which resolved with resumption of his medications and saline administration and IV metoprolol. Blood pressure was well controlled on his home medications. He was eating well on a GI soft diet and it was felt he could be discharged home to follow up in my office in 1 week. DISCHARGE MEDICATIONS: Will be his home medications that include Norvasc 10 mg p.o. daily, Lexapro 20 mg p.o. daily, [place] 7.5 mg p.o. q.6 hours p.r.n. pain, Creon 38481 units 2 p.o. t.i.d. with meals. Nadolol 40 mg p.o. daily. Protonix 40 mg p.o. b.i.d., Carafate liquid 1 g p.o. q.6h hours. Lantus 18 units subcu q.a.m., NovoLog flex pen, he is taking sliding scale generally taking about 17 units t.i.d. with meals.
== END 2016-10-25 18:59 | disposition home or self-care (01) | DRG 312 ==
LOC: EDBD → EDUNIT# → ED 20:24 → ICU 20:25 → UNDOADMIN 10-24 02:20 → ICU 10-24 02:20
PROVIDERS: ADMIT Family Medicine; ATTEND Family Medicine
DX: R55 Syncope and collapse (principal); K86.3 Pseudocyst of pancreas; K70.30 Alcoholic cirrhosis of liver without ascites; K86.0 Alcohol-induced chronic pancreatitis; I10 Essential (primary) hypertension; K76.9 Liver disease, unspecified; F10.20 Alcohol dependence, uncomplicated; K21.9 Gastro-esophageal reflux disease without esophagitis; F32.9 Major depressive disorder, single episode, unspecified; E11.9 Type 2 diabetes mellitus without complications; Z80.1 Family history of malignant neoplasm of trachea, bronchus and lung; Z83.3 Family history of diabetes mellitus; Z79.4 Long term (current) use of insulin; R00.0 Tachycardia, unspecified
CPT/HCPCS: 70450; 71010; 74177; 80048; 80053; 81001; 82009; 82150; 82550; 82805; 82948; 83036; 83605; 83690; 83735; 83880; 84443; 84484; 85025; 85610; 85730; 93005; 93306; 93880; 96365; 96375; C9113; G0480; J1160; J1650; J1815; J2405; J7030; Q9967; 80320; 80324; 80329; 80345; 80346; 80349; 80353; 80358; 80361; 80365; 83992; S0164

== ENCOUNTER 2016-11-13 16:11 | Inpatient (IN) ==
[2016-11-13 16:46] LABS: MANUAL DIFF NEEDED? NO
[2016-11-13] MEDS ORDERED: NS 1,000 ML IV ONE ×2 (16:58→21:02)
[2016-11-13 16:59] LABS: BASO% 0.7 % (0.0-0.8); EOS# 0.13 X1000 (0.0-0.7); EOS% 1.6 % (0.0-10.0); HEMOGLOBIN 15.2 g/dL (14.0-18.0); IMM GRAN# 0.04 X1000 (0.0-0.04); IMM GRAN% 0.5 % (0.0-0.5); LYMPH# 2.09 X1000 (1.2-3.4); LYMPH% 25.2 % (20.5-51.1); MCH 29.6 PG (27-31); MCHC 35.3 g/dL (33-37); MCV 83.7 FL (81-99); MONO# 0.73 X1000 (0.11-0.59); MONO% 8.8 % (1.7-9.3); MPV 9.3 FL (7.4-10.4); NEUT% 63.2 % (42.2-75.2); PLT 283 X1000 (130-400); RBC 5.14 XMIL (4.7-6.1)
[2016-11-13] MEDS ORDERED: COMPAZINE IV ONE (17:00)
[2016-11-13 17:03] LABS: INR 0.89 (0.86-1.15); PROTIME 12.4 Seconds (12.1-15.5)
[2016-11-13 17:04] LABS: PTT PL 23.8 Seconds (22.6-43.9)
[2016-11-13 17:07] LABS: AGAP 16; ALBUMIN 4.9 g/dL (3.5-5.0); ALKALINE PHOSPHATASE 124 U/L (32-122); BUN 15 mg/dL (8-22); CALCIUM 9.1 mg/dL (8.8-10.2); CHLORIDE 97 mmol/L (98-107); CK PROFILE 76 U/L (24-204); COSMO 271; GOT 56 U/L (10-34); GPT 44 U/L (10-44); POTASSIUM 4.2 mmol/L (3.5-5.1); SODIUM 134 mmol/L (136-145); TCO2 21 mmol/L (25-35); TOTAL PROTEIN 7.2 g/dL (6.3-8.3)
[2016-11-13] MEDS ORDERED: NS 1,000 ML ONE (17:19)
[2016-11-13 17:23] LABS: AMYLASE 74 U/L (20-200); LIPASE 19 U/L (13-60)
--- NOTE | 2016-11-13 18:14 | Diag Imaging Result Document ---
PROCEDURE NAME: FLAT/UPRIGHT ABD/1 VIEW CHEST - 11/13/2016 ABDOMEN 2 VIEWS: COMPARISON: CT from 11/09/2016. FINDINGS: There is a nonobstructive bowel gas pattern. No free air or abnormal calcifications. IMPRESSION: No acute disease.
--- NOTE | 2016-11-13 18:15 | Diag Imaging Result Document ---
PROCEDURE NAME: CHEST-2 VIEWS - 11/13/2016 CHEST X-RAY 2 VIEWS: COMPARISON: 10/23/2016, 07/29/2016. FINDINGS: There is a stable calcified granuloma in the right lung base. No focal infiltrates, pneumothorax, or pleural effusion. Heart size is normal. IMPRESSION: Negative exam.
[2016-11-13] MEDS ORDERED: MORPHINE IV ONE (19:07)
[2016-11-13] MEDS ORDERED: ZOFRAN IV ONE ×2 (19:07→20:59)
[2016-11-13] MEDS ORDERED: DILAUDID IV ONE (21:01)
[2016-11-13] MEDS ORDERED: CATAPRES PO ONE (23:49)
[2016-11-13] MEDS ORDERED: CATAPRES ONE (23:51)
[2016-11-14] MEDS ORDERED: APRESOLINE IV ONE (01:50)
[2016-11-14] MEDS: DILAUDID IM PRN ×3 (02:28→09:46)
[2016-11-14] MEDS: ZOFRAN IV PRN (02:29)
[2016-11-14 03:06] LABS: URINE CULTURE PL NEEDED? NO
[2016-11-14 03:31] LABS: BILIRUBIN URINE NEGATIVE (NEGATIVE); BLOOD URINE NEGATIVE (NEGATIVE); CLARITY CLEAR (CLEAR); COLOR YELLOW; GLUCOSE URINE NEGATIVE (NEGATIVE); LEUKOCYTES URINE NEGATIVE (NEGATIVE); NITRITE URINE NEGATIVE (NEGATIVE); PROTEIN URINE NEGATIVE (NEGATIVE); SP GRAVITY URINE 1.015; UROBILINOGEN URINE NORMAL
[2016-11-14 03:39] LABS: URINE EPITHELIAL CELLS <10 /HPF (<10); URINE RBC <10 /HPF (<10); URINE SOURCE CLEAN CATCH; URINE WBC <10 /HPF (<10)
[2016-11-14] MEDS: PHENERGAN IV PRN ×5 (06:26→23:27)
--- NOTE | 2016-11-14 09:24 | Diag Imaging Result Document ---
PROCEDURE NAME: CT ABD/PELVIS W/ IV CONT ONLY - 11/13/2016 CT OF THE ABDOMEN WITH INTRAVENOUS CONTRAST: FINDINGS: There is a calcified granuloma in the right lower lobe as there was on 11/09/2016. There is some fatty change in the liver around the inferior vena cava and caudate lobe. This was also present on the previous study. There are no apparent gallstones or inflammatory changes around the gallbladder. There are granulomata in the spleen which remain slightly enlarged measuring slightly over 13 cm in AP dimension. There is a well-circumscribed slightly heterogeneous hypodense structure within the body of the pancreas which has a long axis dimension of 6.1 cm. This is slightly larger than it was on 11/09/2016, at which time it measured 5.9 cm which was also the case on 10/23/2016. This is probably a chronic pseudocyst with necrotic debris and slight variations in size over the last several examinations are probably not clinically significant. There is some fluid throughout the small bowel as there has been over the last several examinations. There is stool and gas in the colon. The appendix remains normal in appearance. CT OF THE PELVIS WITH INTRAVENOUS CONTRAST: The regional skeleton is stable in appearance. There is no evidence of free fluid or significant adenopathy. IMPRESSION: 1. Chronic pancreatic fluid collection. This has not changed significantly since at least 10/23/2016. There has been very little change since 07/29/2016. The patient has had a total of [address] scans over the interval for this abnormality. 2. Patchy hepatic steatosis. 3. Borderline splenomegaly. 4. Varices.
[2016-11-14] MEDS: SODIUM CHLORIDE 0.9% INJ PRN ×4 (09:46→18:36)
[2016-11-14] MEDS ORDERED: DILAUDID IM PRN (10:05)
[2016-11-14] MEDS: NS 1,000 ML IV SCH ×2 (12:11→21:11)
[2016-11-14] MEDS: APRESOLINE IV PRN ×3 (12:11→23:36)
[2016-11-14] MEDS: ZOSYN 3.375 GM/NS 3.375 GM/50 ML IVPB IV SCH ×3 (12:11→23:27)
[2016-11-14] MEDS: DILAUDID IV PRN ×6 (12:12→23:27)
--- NOTE | 2016-11-14 12:55 | HISTORY AND PHYSICAL ---
PRIMARY CARE PHYSICIAN: Dr. Darrell Tobias CHIEF COMPLAINT: Abdominal pain. HISTORY OF PRESENTING ILLNESS: This is a 41-year-old male who has a history of chronic pancreatitis secondary to ETOH abuse who had an EUS performed 10 days ago for his pancreatitis at [facility]. States that he was feeling okay until yesterday when his abdominal pain generalized increased feeling like his abdomen was slightly more swollen. Workup was fairly unremarkable. Amylase and lipase were normal at 74 and 19. He did have a plasma lactate of 2.6, AST of 56, ALT 44, alkaline phosphatase of 124. Abdomen x-ray showed no acute disease. His abdomen and pelvic CT showed chronic pancreatic fluid collection that has not changed since the last one on 10/23/2016 and there had been very little change since 07/29/2016 noting that he has had a total of [address] scans over the interval for this abnormality. He had some patchy hepatic steatosis and borderline splenomegaly but he was admitted for further evaluation and treatment. PAST MEDICAL HISTORY: Chronic pancreatitis secondary to ETOH abuse. Chronic liver disease. Liver cirrhosis, hypertension, depression and he has had hepatorenal syndrome that required dialysis in the past. PAST SURGICAL HISTORY: None except for the EUS that was performed for his pancreatitis approximately 10 days ago at [facility]. FAMILY HISTORY: Lung cancer in an uncle and a paternal grandmother and aunt with diabetes. SOCIAL HISTORY: He currently lives alone. Denies any tobacco use. States that he drinks red white wine occasionally. He has significantly decreased his ETOH use and does attend AA meetings and denied any illicit drug use. ALLERGIES: Metoclopramide. HOME MEDICATIONS: Will all be held at this time as he is NPO, but he takes Lexapro 20 mg p.o. q.a.m., [place] 7.5 one p.o. q.6 hours p.r.n., NovoLog FlexPen per our protocol 3 times a day, Lantus 15 units subcutaneous q.a.m., Creon 13683 units p.o. daily, nadolol 40 mg p.o. at bedtime, Protonix 40 mg p.o. b.i.d., Phenergan 12.5 mg per rectum q.6 hours p.r.n. and 25 mg p.o. q.6 hours p.r.n., Carafate liquid 1 g p.o. q.6 hours and Norvasc 10 mg p.o. at bedtime. LABORATORY DATA: Showed a white blood cell count of 8.29, hemoglobin 15.2, hematocrit 43, platelets 283,000. PT and INR of 12.4 and 0.89, sodium of 134, potassium 4.2, chloride 97, CO2 21, BUN of 15, creatinine 0.9, glucose 139, AST of 56, ALT 44, alkaline phosphatase 124, creatine kinase of 76 with a troponin of less than 0.010. Amylase of 74, lipase 19, plasma lactate 2.6. Urinalysis was negative. Chest x-ray showed a negative exam. Abdomen x-ray showed no acute disease. Abdomen and pelvic CT showed chronic pancreatic fluid collection that had changed very little since 07/29/2016, noting that he has had [address] scans over the interval for this abnormality. Patchy hepatic steatosis, borderline splenomegaly and some varices. REVIEW OF SYSTEMS: He denied any fever, chills, blurred vision, dizziness, chest pain, coughing, shortness of breath. He was positive for generalized abdominal pain with some nausea. No vomiting or diarrhea or burning or hurting with urination. PHYSICAL EXAMINATION: VITAL SIGNS: On arrival, he had a pulse of 146, respirations 24, blood pressure 162/114, saturating 96% on room air. GENERAL: This is a 41-year-old male, who is lying in the bed, and answers questions appropriately. HEENT: Normocephalic and atraumatic. Pupils are equal, round, reactive to light. Extraocular movements are intact. The oropharynx and nares are clear. NECK: Supple. LUNGS: Clear to auscultation bilaterally with equal lung expansion and chest wall movement. HEART: Regular rate and rhythm. No murmurs, rubs, or gallops. ABDOMEN: Soft and nontender, nondistended. Bowel sounds are present x4 quadrants. Mildly distended. There is some tenderness to palpation. Bowel sounds are hypoactive. EXTREMITIES: No clubbing, cyanosis, or edema. NEUROLOGICAL: The cranial nerves 2-12 appear grossly intact. ASSESSMENT: 1. Abdominal pain. 2. Chronic pancreatitis. 3. Hypertension. 4. Ethanol abuse. PLAN: He has been admitted to the medical unit at [facility]. Placed on NPO. Placed on telemetry. Blood cultures x2 were pending. We will give him normal saline at 150 mL an hour. Dilaudid 2 mg IV q.2 hours p.r.n., Phenergan 25 IV q.4 hours p.r.n. We will start him on Zosyn 3.375 g IV q.6, place on hydralazine 10 mg IV q.6 hours p.r.n. for a systolic blood pressure greater than 190, diastolic greater than 100. Zofran 4 mg IV q.4 hours p.r.n., Phenergan 25 IV q.4 hours p.r.n. and will recheck a CBC, CMP, amylase lipase in the a.m. We will continue him on NPO until his pain is improving and then we will slowly introduce a diet starting out with some clear liquids and advance as tolerated hopefully in the a.m. Dictated by RUFUS Tee for Rodrick Cisneros MD cc: RUFUS Rand MD
[2016-11-14] MEDS ORDERED: NORVASC PO SCH (21:00)
[2016-11-15] MEDS: NS 1,000 ML IV SCH ×5 (00:05→21:25)
[2016-11-15] MEDS: DILAUDID IV PRN ×10 (01:32→22:17)
[2016-11-15] MEDS: PHENERGAN IV PRN ×5 (03:37→20:09)
[2016-11-15] MEDS: ZOSYN 3.375 GM/NS 3.375 GM/50 ML IVPB IV SCH ×3 (04:43→17:14)
--- NOTE | 2016-11-15 17:48 | PROGRESS NOTE ---
DATE: 11/15/2016 SUBJECTIVE: Today Mr. Samaniego referred to be fine. However he continues to have remarkable abdominal pain. OBJECTIVE: Vital Signs: Blood pressure is 140/99, pulse of 105, respiration is 20, temperature 98.0 degrees. General Exam: Mr. Samaniego is a 41-year-old male. He was in bed, in no distress. HEENT: Mucosa is pink and moist. Anicteric. Acyanotic. Neck: Supple. Chest: Was clear. Cardiovascular: Regular rate and rhythm. Abdomen: Is soft, is tender all over but no rebound or guarding. Extremities: No pedal edema. 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 DIAGNOSTIC DATA: There is not any lab work for today. A CT scan of the abdomen and pelvis did show chronic pancreatitis, chronic pancreatic fluid collection which has not significantly changed since 10/23/2016, and there has been very little change from 2016. Of note, according to the patient there was some drainage done by Dr. Fishman in [place] just about 2 weeks ago. ASSESSMENT: 1. Abdominal pain secondary to chronic pancreatitis. 2. Peripancreatic fluid status post endoscopic ultrasonography and drainage in [place] about 2 weeks ago. 3. Hypertension. 4. Ethanol abuse. Patient has been counseled. 5. Hepatic steatosis likely due to alcohol abuse. 6. Borderline splenomegaly. 7. Varices which I think is related to portal hypertension. cc: Steven Pulliam MD
[2016-11-16] MEDS: DILAUDID IV PRN ×9 (00:19→20:37)
[2016-11-16] MEDS: PHENERGAN IV PRN ×6 (00:19→20:37)
[2016-11-16] MEDS: ZOSYN 3.375 GM/NS 3.375 GM/50 ML IVPB IV SCH ×3 (00:20→10:32)
[2016-11-16] MEDS ORDERED: MORPHINE IV ONE (01:30)
[2016-11-16] MEDS: NS 1,000 ML IV SCH ×4 (04:17→20:13)
[2016-11-16 06:23] LABS: MANUAL DIFF NEEDED? NO
[2016-11-16 06:40] LABS: BASO% 0.6 % (0.0-0.8); EOS# 0.15 X1000 (0.0-0.7); HEMATOCRIT 33.9 % (42.0-52.0); HEMOGLOBIN 11.3 g/dL (14.0-18.0); IMM GRAN# 0.01 X1000 (0.0-0.04); IMM GRAN% 0.2 % (0.0-0.5); LYMPH# 1.17 X1000 (1.2-3.4); LYMPH% 23.3 % (20.5-51.1); MCH 28.9 PG (27-31); MCHC 33.3 g/dL (33-37); MCV 86.7 FL (81-99); MONO# 0.36 X1000 (0.11-0.59); MONO% 7.2 % (1.7-9.3); MPV 9.3 FL (7.4-10.4); NEUT% 65.7 % (42.2-75.2); PLT 143 X1000 (130-400); RBC 3.91 XMIL (4.7-6.1)
[2016-11-16 07:14] LABS: AGAP 11; ALBUMIN 4.2 g/dL (3.5-5.0); ALKALINE PHOSPHATASE 93 U/L (32-122); BUN 6 mg/dL (8-22); CALCIUM 8.9 mg/dL (8.8-10.2); CHLORIDE 102 mmol/L (98-107); COSMO 274; GOT 28 U/L (10-34); GPT 28 U/L (10-44); POTASSIUM 4.1 mmol/L (3.5-5.1); SODIUM 137 mmol/L (136-145); TCO2 25 mmol/L (25-35); TOTAL PROTEIN 6.2 g/dL (6.3-8.3)
[2016-11-16] MEDS: SODIUM CHLORIDE 0.9% INJ PRN ×3 (08:22→16:40)
[2016-11-16] MEDS: NEURONTIN PO SCH ×2 (12:50→16:40)
[2016-11-16] MEDS: BENTYL IM SCH ×2 (12:50→16:41)
[2016-11-16] MEDS ORDERED: RELISTOR SUBQ ONE (15:21)
--- NOTE | 2016-11-16 16:12 | PROGRESS NOTE ---
DATE: 11/16/2016 SUBJECTIVE: Today, Mr. Samaniego refers to be doing fine. He continues to express pain. OBJECTIVE: Vital signs: Blood pressure is 154/110, pulse is 109, respirations 19, and temperature is 97.9 degrees. General: Mr. Samaniego is a 41-year-old male. He has been up and down. He was actually standing, talking to me, not in any distress. Physical examination is completely unremarkable, unchanged from yesterday's LABORATORIES: CBC has been reviewed and is completely normal. Chemistry is reviewed and completely normal. AST has normalized. C-reactive protein is 19.26, a little bit elevated, but this is actually the lowest it has been since 2015. IMAGING: Review of CT scan of abdomen and pelvis does show some significant constipation. ASSESSMENT: 1. Abdominal pain secondary to chronic pancreatitis. 2. Peripancreatic fluid status post EUS drainage in [place] about 2 weeks ago. 3. Hypertension. 4. Ethanol abuse. 5. Hepatic steatosis due to alcohol abuse. 6. Borderline splenomegaly with varices, likely due to underlying portal hypertension. 7. Constipation, likely due to opioid abuse. We will give the patient a dose of methylnaltrexone and MiraLAX 4 to help with this. I did explain to the patient that the CRP is actually a whole lot better, so I think some of the pain is also being driven by the constipation. We will going to cut back on the narcotics, continue with adequate hydration, and continue with the current medical plan. I anticipate to discharge the patient home soon. cc: MD ALEJANDRO Angeles
[2016-11-16] MEDS: MIRALAX PO SCH (16:40)
[2016-11-16] MEDS: APRESOLINE IV PRN (20:13)
[2016-11-17] MEDS: DILAUDID IV PRN ×6 (01:24→22:01)
[2016-11-17] MEDS: PHENERGAN IV PRN ×6 (01:24→22:02)
[2016-11-17] MEDS ORDERED: DULCOLAX PR ONE (05:00)
[2016-11-17] MEDS ORDERED: CARAFATE LIQUID PO ONE (05:00)
[2016-11-17] MEDS: NS 1,000 ML IV SCH ×3 (05:44→22:02)
[2016-11-17] MEDS: NEURONTIN PO SCH ×3 (09:34→17:56)
[2016-11-17] MEDS: MIRALAX PO SCH (09:34)
[2016-11-17] MEDS: BENTYL IM SCH ×3 (09:34→17:56)
[2016-11-17] MEDS: SODIUM CHLORIDE 0.9% INJ PRN ×2 (09:43→17:56)
--- NOTE | 2016-11-17 14:58 | PROGRESS NOTE ---
DATE: 11/17/2016 SUBJECTIVE: Today Mr. Samaniego refers to be doing fine. He was given clear liquids and he thinks he has been able to tolerate it. He also thinks that Dulcolax IN helps him wore than the MiraLAX. OBJECTIVELY: Vitals: Stable. Blood pressure is 142/101, pulse of 112, respirations 19, temperature is 98.1 degrees. Patient is saturating 100% on room air. General: Mr. Samaniego is a 41-year-old male. He is not in any distress. He is in bed. HEENT: Mucosa is pink and moist. Anicteric and acyanotic. Neck: Supple. Chest: Clear. Cardiovascular : Regular rate and rhythm. Abdomen: Soft, is mildly tender under the lower abdomen. 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 There is no focal neurological deficit. LABORATORY DATA: None for today. Glucose is 110. ASSESSMENT: 1. Abdominal pain secondary to chronic pancreatitis. 2. Peripancreatic fluid status post EUS drainage in [place] about 2 weeks ago. 3. Ethanol abuse. 4. Hepatic steatosis due to alcohol abuse. 5. Borderline splenomegaly with varices likely due to underlying portal hypertension. 6. Constipation, likely due to opioid abuse. 7. Hypertension, stable. PLAN: In general Mr. Samaniego is a gentleman who binges alcohol a lot. He is known to have peripancreatic fluid and normally acute on chronic pancreatitis. He has been in hospital multiple times this years, mainly because of acute on chronic pancreatitis. He normally follows up with Dr. Encarnacion and with in [place]. I think if tomorrow he is able to tolerate his gastrointestinal soft diet we will be able to discharge him to follow up with his primary care physician's. I am going to restart him on his blood pressure medications, which include amlodipine and also Nadolol which is a beta edu for his portal hypertension as well as blood pressure control. cc: MD ALEJANDRO Angeles
[2016-11-17] MEDS: APRESOLINE IV PRN (15:44)
[2016-11-18] MEDS: DILAUDID IV PRN ×3 (02:03→10:33)
[2016-11-18] MEDS: PHENERGAN IV PRN ×2 (02:03→06:04)
[2016-11-18] MEDS: NS 1,000 ML IV SCH ×3 (03:00→13:43)
[2016-11-18] MEDS: MIRALAX PO SCH (08:57)
[2016-11-18] MEDS: NEURONTIN PO SCH ×3 (08:57→20:51)
[2016-11-18] MEDS: BENTYL IM SCH (08:57)
[2016-11-18] MEDS: APRESOLINE IV PRN (10:33)
[2016-11-18] MEDS: ZOFRAN IV PRN (10:33)
--- NOTE | 2016-11-18 13:48 | PROGRESS NOTE ---
DATE: 11/18/2016 SUBJECTIVE: This patient states that he is feeling better. He has been tolerating clear liquid diet today. We will advance the diet to see how he does. Also, I will decrease the IV fluids from 150-100 mL/h. OBJECTIVE: Vital Signs: Temperature 98 degrees, pulse 114 respiratory rate 20, blood pressure 148/95, and O2 saturation 99 on room air. HEENT: Head normocephalic. No trauma. PERRLA. Neck: Supple. No JVD. No masses. Central trachea. Chest: Clear to auscultation. No wheezing. No rales. Cardiovascular: RRR. No murmurs. Abdomen: Soft. Mild tenderness to palpation at the level of the umbilical area and lower abdomen. Positive bowel sounds. Extremities: No edema. No clubbing. No cyanosis. Neurological examination: No focal neurological deficits. Alert and oriented x3. LABORATORY: Glucose 179. ASSESSMENT AND PLAN: 1. Abdominal pain in a patient with chronic pancreatitis, he has been receiving IV fluids and tolerating a clear liquid diet. I will advance the diet at this moment, and I will stop the Dilaudid and start this patient on p.o. medication. Magna 75, I already decreased the amount of fluids. This patient is getting better. We will continue to monitor this patient for 1 more day. If he is doing better tomorrow, I think I can send this patient home. 2. Peripancreatic fluid status post EUF drainage in [place] about 2 weeks ago. Will monitor. 3. Alcohol abuse. I had a conversation with this patient about alcohol abuse. This patient has been highly advised against alcohol abuse. I will continue with daily cessation education. 4. Hepatic steatosis due to alcohol abuse. Aware. 5. Borderline splenomegaly with viruses likely secondary to underlying portal hypertension. 6. Constipation probably secondary to opioid abuse and decreased physical activity. 7. Hypertension stable. Continue with the same management. cc: Ayaan Negro MD
[2016-11-18] MEDS: NORCO-10 PO PRN (15:29)
[2016-11-19] MEDS: NS 1,000 ML IV SCH ×3 (00:35→12:14)
[2016-11-19] MEDS: MIRALAX PO SCH (09:01)
[2016-11-19] MEDS: NEURONTIN PO SCH ×2 (09:01→13:08)
[2016-11-19] MEDS: NORCO-10 PO PRN ×2 (09:06→13:08)
[2016-11-19] MEDS: APRESOLINE IV PRN (09:06)
[2016-11-19 12:07] VITALS: BP 127/91
--- NOTE | 2016-11-19 19:18 | DISCHARGE SUMMARY ---
ADMISSION DATE: 11/13/2016 DISCHARGE DATE: 11/19/2016 PRIMARY CARE PHYSICIAN: Dr. Darrell Tobias. ADMISSION DIAGNOSES: 1. Abdominal pain. 2. Chronic pancreatitis. 3. Hypertension. 4. Ethanol abuse. DISCHARGE DIAGNOSES: 1. Abdominal pain. 2. Chronic pancreatitis. 3. Peripancreatic fluid status post endoscopic ultrasound drainage at [facility] 2 weeks ago. 4. Hepatic steatosis due to ethyl alcohol abuse. 5. Constipation. 6. Hypertension. SUMMARY OF FINDINGS: This is a 41-year-old male who presented to the ER with complaints of abdominal pain that was generalized and feeling like his abdomen was slightly swollen. The workup was fairly unremarkable except he had an amylase and lipase were normal at 74 and 19. His abdomen x-ray showed no acute disease. The abdomen and pelvic CT showed chronic pancreatic fluid collection that has not changed since the last 1 on 10/23/2016 and had very little change since 07/29/2016 and noting that he had [address] use over this interval for this abnormality. He had some patchy hepatic steatosis and borderline splenomegaly. He had an EUS procedure 10 days ago for his chronic pancreatitis at [facility]. He was admitted, held initially NPO, given IV pain medication, normal saline at 100 mL an hour. He progressed slowly but his pain began improving. We advanced his diet and we changed and weaned him off of his IV pain medication to p.o. and he has tolerated that well. So it is felt today that he can safely be discharged home. DISCHARGE MEDICATIONS: Include Neurontin 100 mg p.o. t.i.d. #90 with no refills, MiraLAX 17 g p.o. daily, Norvasc 10 mg p.o. at bedtime, Lexapro 20 mg p.o. q.a.m., NovoLog FlexPen per sliding scale t.i.d., Lantus 15 units subcutaneous q.a.m., his Creon 24,000 units p.o. daily, nadolol 40 mg p.o. at bedtime, Protonix 40 mg p.o. b.i.d., Phenergan suppository 12.5 mg per rectum q.6 hours p.r.n., Carafate liquid 1 g p.o. q.6 hours #120 with 2 refills. FOLLOWUP: He will need to follow up with his primary care physician in 1-2 weeks or sooner if needed. TIME SPENT: 35-minute discharge. Dictated by RUFUS Tee for Ayaan Negro MD cc: Darrell Negro MD
--- NOTE | 2016-11-30 18:45 | PROVIDER DOCUMENTATION ---
This chart was entered by Layla Meredith Scribe, acting as scribe for Mikel Barrios MD. HPI-Abdominal Pain/GI Problem - General Chief Complaint: Abdominal Pain Stated Complaint: POST OP COMPLAINT Time Seen by Provider: 11/13/16 16:53 Source: patient Allergies/Adverse Reactions: Patient Allergies Allergy/AdvReac Type Severity Reaction Status Date / Time metoclopramide HCl * AdvReac DYSTONIA Verified 11/25/16 17:18 [From Reglan] Home Medications: Home Medication List Medication Instructions Recorded Confirmed Last Taken Type Escitalopram [Lexapro] 20 mg PO QAM #30 tablet 02/17/16 11/25/16 11/24/16 Rx Insulin Aspart [Novolog Flexpen] See Protocol SQ TID 10/12/16 11/25/16 11/24/16 History Insulin Glargine [Lantus] 15 unit SUBQ QAM 10/15/16 11/25/16 11/24/16 History Lipase/Protease/Amylase [Creon] 24,000 units PO DAILY 10/15/16 11/25/16 History Amlodipine Besylate [Norvasc] 10 mg PO QHS 11/14/16 11/25/16 11/24/16 History Nadolol [Corgard] 40 mg PO QHS 11/14/16 11/25/16 11/24/16 History Gabapentin [Neurontin] 100 mg PO TID #90 capsule 11/19/16 11/25/16 11/24/16 Rx Omeprazole 40 mg PO DAILY #30 capsule. 11/29/16 Unknown Rx - History of Present Illness-ABD Nature of Presenting Problems: 41 yo M presents to the ER with complaint of sudden onset of abdominal pain this afternoon, pt states that he had some pain yesterday but today was much worse. Had an "EUS" x10 days ago for pancreatitis in [place]. Describes the pain as more right sided, feels like his abdomen is slightly swollen. Abdominal Pain Onset Location: reports: generalized abdomen Pain Radiation: reports: no radiation Quality of Pain: reports: sharp Onset/Duration: reports: just prior to arrival Review of Systems - Adult - REVIEW OF SYSTEMS - ADULT Constitutional: denies: chills, fever Eyes: reports: no symptoms reported Ears, Nose, Mouth & Throat: reports: no symptoms reported Cardiovascular: reports: irregular heart rate. denies: chest pain Respiratory: denies: cough, shortness of breath Gastrointestinal: reports: abdominal pain. denies: diarrhea, vomiting Genitourinary: reports: no symptoms reported Musculoskeletal: reports: no symptoms reported Integumentary: reports: no symptoms reported Neurological: reports: no symptoms reported Psychiatric: reports: no symptoms reported Endocrine: reports: no symptoms reported Hematologic/Lymphatic: reports: no symptoms reported Allergic/Immunologic: reports: no symptoms reported All Other Systems: Reviewed and Negative Past History - Adult - PAST MEDICAL HISTORY-ADULT Review of Records: reports: Nursing Assessment Review, Medications Reviewed Cardiovascular: reports: HTN Gastrointestinal: reports: GERD, pancreatitis, other (gastritis and esophagitis) Genitourinary: denies: kidney disease, kidney stones, polycystic kidney disease , chronic UTI's Psychiatric: reports: depression Endocrine/Immune: reports: Diabetes Additional History: Alcoholic - PRIOR SURGERIES/PROCEDURES Surgical/Procedure History: reports: EGD, other (EOS performed 11/04/[address] Cervantes at [facility]) - PRIOR HOSPITALIZATIONS Prior Hospitalizations: reports: for similar symptoms - IMMUNIZATION STATUS Childhood Immunizations: See Nurse Assessment Flu Vaccine: See Nurse Assessment Physical Exam-General - PHYSICAL EXAM-ADULT Initial Vital Signs Reviewed: Yes - CONSTITUTIONAL General Appearance: alert, mild distress - EYES Eyes: PERRL/EOMI, pink conjunctivae - HEAD, EARS, NOSE, MOUTH & THROAT HENMT: normocephalic/atraumatic, normal ENT inspection - NECK Neck: supple, normal inspection - RESPIRATORY Respiratory: no respiratory distress, no accessory muscle use - CARDIOVASCULAR Cardiovascular: normal peripheral pulses, regular rate, rhythm - GASTROINTESTINAL (ABDOMEN) Abdominal Exam: tenderness (generalized) - MUSCULOSKELETAL Back Exam: no CVA tenderness, no vertebral tenderness Extremity: normal gait, normal inspection - SKIN Integumentary: normal color, warm/dry - NEUROLOGIC Neurologic: grossly normal, no motor/sensory deficits - PSYCHIATRIC Psych/Mental Status: normal mood/affect, normal thought content, normal thought process, oriented x 3 Progress - PLAN OF CARE/RESULTS Progress/Plan/Lab Results: Vital Signs - 8 hr 11/13/16 16:21 Pulse Rate 146 H Respiratory Rate 24 Blood Pressure 162/114 O2 Sat by Pulse Oximetry 96 Orders Category Date Time Status Cardiac Monitoring DIRECTED Care 11/13/16 16:30 Active IV Insertion ORDERED Care 11/13/16 16:30 Completed Notify MD of + Sepsis Screen NOW Care 11/13/16 16:30 Active Sepsis [Notify MD/PA/JOINT SETTER for exam] NOW Care 11/13/16 16:27 Active CHEST-2 VIEWS [RAD] Stat Exams 11/13/16 16:30 Ordered BLOOD CULTURE [BLDCUL] Stat Lab 11/13/16 16:35 Ordered CBC WITH DIFF [HEME] Stat Lab 11/13/16 16:30 Results CK PROFILE [SP CHEM] Stat Lab 11/13/16 16:30 Received COMPREHENSIVE METABOLIC PANEL [CHEM] Stat Lab 11/13/16 16:30 Received LACTATE, PLASMA [CHEM] Stat Lab 11/13/16 16:30 Received [address]IME WITH INR PL [COAG] Stat Lab 11/13/16 16:[address] [COAG] Stat Lab 11/13/16 16:30 Received TROPONIN T Stat Lab 11/13/16 16:[address] W/POSS RFLX CULT [URINALYSIS] Stat Lab 11/13/16 16:35 Ordered Oxygen Device Stat Oth 11/13/16 16:30 Active Result Diagrams: 11/16/16 06:00 11/16/16 06:00 - XRAY 1 XRAY Study: Chest, Abdomen Impression: Normal (negative, per radiologist) - CHANGE OF SHIFT REPORT (ED Provider) Report Given and Care Transferred to:: Dr. Christine Time of Transfer: 18:00 Items Pending: Labs, XRAY Results Departure - Departure Time of Disposition Decision: 12:50 DIAGNOSIS: Uncontrolled hypertension Acute alcoholic pancreatitis Qualifiers: Acute pancreatitis complication: unspecified Qualified Code(s): K85.20 - Alcohol induced acute pancreatitis without necrosis or infection Disposition: ADMITTED INPATIENT 09 Certified Medical Emergency: Emergent Condition: Stable - Critical Care Note This patient required my direct personal management.: No This chart was documented by the indicated scribe, (Layla Meredith Scribe) and accurately reflects the services I performed and decisions made by me, Mikel Barrios MD, as attested by the provider's signature.
== END 2016-11-19 14:20 | disposition home or self-care (01) ==
LOC: P.ED 16:11 → P.MEDSURG 23:52 → SUATTDRO 23:52
PROVIDERS: ATTEND Internal Medicine

== ENCOUNTER 2016-11-25 16:56 | Inpatient (IN) ==
[2016-11-25 18:03] LABS: MANUAL DIFF NEEDED? NO
[2016-11-25 18:10] LABS: BASO% 0.6 % (0.0-0.8); EOS# 0.03 X1000 (0.0-0.7); EOS% 0.4 % (0.0-10.0); HEMATOCRIT 41.1 % (42.0-52.0); HEMOGLOBIN 14.6 g/dL (14.0-18.0); IMM GRAN# 0.03 X1000 (0.0-0.04); IMM GRAN% 0.4 % (0.0-0.5); LYMPH# 1.84 X1000 (1.2-3.4); LYMPH% 25.8 % (20.5-51.1); MCH 29.7 PG (27-31); MCHC 35.5 g/dL (33-37); MCV 83.5 FL (81-99); MONO# 0.58 X1000 (0.11-0.59); MONO% 8.1 % (1.7-9.3); MPV 9.4 FL (7.4-10.4); NEUT% 64.7 % (42.2-75.2); PLT 303 X1000 (130-400); RBC 4.92 XMIL (4.7-6.1)
[2016-11-25 18:20] LABS: INR 0.98; PROTIME 10.3 Seconds (9.2-11.7); PTT 23.7 Seconds (22.0-36.0)
[2016-11-25 18:20] LABS: URINE CULTURE NEEDED? NO; URINE MICRO REVIEW NEEDED? NO; URINE SOURCE CLEAN CATCH
[2016-11-25 18:24] LABS: BILIRUBIN URINE NEGATIVE (NEGATIVE); BLOOD URINE NEGATIVE (NEGATIVE); COLOR YELLOW; GLUCOSE URINE NEGATIVE (NEGATIVE); LEUKOCYTES URINE NEGATIVE (NEGATIVE); NITRITE URINE NEGATIVE (NEGATIVE); PH URINE 5.5; PROTEIN URINE 30 mg/dL (NEGATIVE); SP GRAVITY URINE 1.023; TURBIDITY URINE HAZY (CLEAR); UR EPITHELIAL CELLS <10 /HPF (<10); URINE BACTERIA NEGATIVE /HPF; URINE RBC <10 /HPF (<10); URINE WBC <10 /HPF (<10); UROBILINOGEN URINE NORMAL (NORMAL)
[2016-11-25 18:27] LABS: AMYLASE 51 U/L (20-200); LIPASE 18 U/L (13-60)
[2016-11-25 18:31] LABS: AGAP 21; BUN 11 mg/dL (8-22); CALCIUM 9.4 mg/dL (8.8-10.2); CHLORIDE 97 mmol/L (98-107); COSMO 284; POTASSIUM 3.7 mmol/L (3.5-5.1); SODIUM 140 mmol/L (136-145); TCO2 22 mmol/L (25-35)
[2016-11-25] MEDS ORDERED: DILAUDID IV ONE (18:32)
[2016-11-25] MEDS ORDERED: ZOFRAN IV ONE (18:32)
--- NOTE | 2016-11-25 18:44 | PROVIDER DOCUMENTATION ---
HPI-Abdominal Pain/GI Problem - General Chief Complaint: Possible Sepsis-D Stated Complaint: recheck Time Seen by Provider: 11/25/16 18:13 Source: patient Allergies/Adverse Reactions: Patient Allergies Allergy/AdvReac Type Severity Reaction Status Date / Time metoclopramide HCl * AdvReac DYSTONIA Verified 12/06/16 20:59 [From Reglan] Home Medications: Home Medication List Medication Instructions Recorded Confirmed Last Taken Type Insulin Aspart [Novolog Flexpen] See Protocol SQ TID 10/12/16 12/06/16 12/05/16 History Amlodipine Besylate [Norvasc] 10 mg PO QHS 11/14/16 12/06/16 12/05/16 History - History of Present Illness-ABD Nature of Presenting Problems: 41 yo WM was discharged recently from [facility] following EUS pancreatic pseudocyst drainage complicated by septicemia. He was treated and discharged, is not currently on antibiotics He has not been drinking alcohol in the past few months. Abdominal Pain Onset Location: reports: generalized abdomen Pain Radiation: reports: back Quality of Pain: reports: fullness, pressure Severity in ED: reports: severe Onset/Duration: reports: 24 hours ago Timing: reports: getting worse Modifying Factors: improves with: nothing Associated Symptoms: reports: anxiety, loss of appetite Last BM: unsure Dark Stools Present?: reports: none noticed Rectal Pain: reports: none Emesis Description: reports: none Bruising or Bleeding Gums?: No Similar Symptoms Previously?: Yes Recently seen or treated by another doctor?: Yes (see HPI) Review of Systems - Adult - REVIEW OF SYSTEMS - ADULT Constitutional: reports: chills, fever Eyes: reports: no symptoms reported Ears, Nose, Mouth & Throat: reports: no symptoms reported Cardiovascular: reports: no symptoms reported Gastrointestinal: reports: see HPI Genitourinary: reports: no symptoms reported Musculoskeletal: reports: no symptoms reported Neurological: reports: dizziness/vertigo Psychiatric: reports: alcohol/drug dependence Endocrine: reports: increased thirst, polyuria Hematologic/Lymphatic: reports: no symptoms reported Allergic/Immunologic: reports: no symptoms reported Past History - Adult - PAST MEDICAL HISTORY-ADULT Review of Records: reports: Old Records Reviewed, Nursing Assessment Review, Medications Reviewed Major Childhood Illnesses: reports: denies history Cardiovascular: reports: HTN Respiratory: reports: denies history Gastrointestinal: reports: GERD, pancreatitis, other (gastritis and esophagitis) Obstetrical/Gynecological: reports: denies history Genitourinary: denies: kidney disease, kidney stones, polycystic kidney disease , chronic UTI's Musculoskeletal: reports: denies history Neurological: reports: denies history Psychiatric: reports: depression Endocrine/Immune: reports: Diabetes Other Conditions: reports: denies history Additional History: Alcoholic - PRIOR SURGERIES/PROCEDURES Surgical/Procedure History: reports: EGD, other (EOS performed 11/04/[address] Cervantes at [facility]) - PRIOR HOSPITALIZATIONS Prior Hospitalizations: reports: for similar symptoms - IMMUNIZATION STATUS Childhood Immunizations: See Nurse Assessment Flu Vaccine: See Nurse Assessment - FAMILY HISTORY Family History: reviewed, not pertinent Physical Exam-General - PHYSICAL EXAM-ADULT Initial Vital Signs Reviewed: Yes - CONSTITUTIONAL General Appearance: alert, moderate distress - EYES Eyes: PERRL/EOMI, pink conjunctivae - HEAD, EARS, NOSE, MOUTH & THROAT HENMT: normocephalic/atraumatic, moist mucous membranes - NECK Neck: non-tender, full range of motion, supple. negative: lymphadenopathy - RESPIRATORY Respiratory: chest non-tender, lungs clear, normal breath sounds, no respiratory distress - CARDIOVASCULAR Cardiovascular: normal peripheral pulses, regular rate, rhythm, tachycardia. negative: no edema, no gallop, no JVD - GASTROINTESTINAL (ABDOMEN) Abdominal Exam: abnormal bowel sounds, guarding, tenderness - LYMPHATIC Lymphatic: no adenopathy - MUSCULOSKELETAL Back Exam: normal inspection Extremity: normal range of motion, non-tender Peripheral Pulses: radial (R): 3+, dorsalis-pedis (R): 3+, dorsalis-pedis (L): 3 + - SKIN Integumentary: normal turgor, warm/dry - NEUROLOGIC Neurologic: grossly normal Progress - PLAN OF CARE/RESULTS Progress/Plan/Lab Results: Vital Signs - 8 hr 11/25/16 16:59 Temperature 98.5 F Pulse Rate 124 H Respiratory Rate 22 Blood Pressure 150/136 O2 Sat by Pulse Oximetry 98 Laboratory Results - last 24 hr 11/25/16 11/25/16 11/25/16 17:18 17:18 17:18 WBC 7.13 RBC 4.92 Hgb 14.6 Hct 41.1 L MCV 83.5 MCH 29.7 MCHC 35.5 RDW Std Deviation 14.6 H Plt Count 303 MPV 9.4 Immature Gran % (Auto) 0.4 Neut % (Auto) 64.7 Lymph % (Auto) 25.8 [place] % (Auto) 8.1 Eos % (Auto) 0.4 Baso % (Auto) 0.6 Immature Gran # (Auto) 0.03 Neut # (Auto) 4.61 Lymph # (Auto) 1.84 [place] # (Auto) 0.58 Eos # (Auto) 0.03 Baso # (Auto) 0.04 PT INR PTT (Actin FS) Sodium 140 Potassium 3.7 Chloride 97 L Carbon Dioxide 22 L Anion Gap 21 BUN 11 Creatinine 0.8 Estimated GFR/1.73 m2 > 60 BUN/Creatinine Ratio 14 Glucose 188 H Calculated Osmolality 284 Calcium 9.4 Amylase Lipase Plasma Lactate 2.8 H Urine Source Urine Color Urine Turbidity Urine pH Ur Specific [place] Urine Protein Ur Glucose (Stick) Ur Ketones (Stick) Urine Blood Urine Nitrite Urine Bilirubin Urobilinogen Dipstick Urine Leukocytes Urine WBC (Auto) Urine RBC (Auto) U Epithel Cells (Auto) Urine Bacteria (Auto) 11/25/16 11/25/16 11/25/16 17:18 17:18 18:05 WBC RBC Hgb Hct MCV MCH MCHC RDW Std Deviation Plt Count MPV Immature Gran % (Auto) Neut % (Auto) Lymph % (Auto) [place] % (Auto) Eos % (Auto) Baso % (Auto) Immature Gran # (Auto) Neut # (Auto) Lymph # (Auto) [place] # (Auto) Eos # (Auto) Baso # (Auto) PT 10.3 INR 0.98 PTT (Actin FS) 23.7 Sodium Potassium Chloride Carbon Dioxide Anion Gap BUN Creatinine Estimated GFR/1.73 m2 BUN/Creatinine Ratio Glucose Calculated Osmolality Calcium Amylase 51 Lipase 18 Plasma Lactate Urine Source CLEAN CATCH Urine Color YELLOW Urine Turbidity HAZY Urine pH 5.5 Ur Specific [place] 1.023 Urine Protein 30 A Ur Glucose (Stick) NEGATIVE Ur Ketones (Stick) TRACE A Urine Blood NEGATIVE Urine Nitrite NEGATIVE Urine Bilirubin NEGATIVE Urobilinogen Dipstick NORMAL Urine Leukocytes NEGATIVE Urine WBC (Auto) <10 Urine RBC (Auto) <10 U Epithel Cells (Auto) <10 Urine Bacteria (Auto) NEGATIVE Orders Category Date Time Status CT ABD/PELVIS W/ IV CONT ONLY [CT] Stat Exams 11/25/16 18:34 Ordered AMYLASE [CHEM] Stat Lab 11/25/16 17:18 Completed BASIC METABOLIC PANEL [CHEM] Stat Lab 11/25/16 17:18 Completed BLOOD CULTURE [BLDCUL] Stat Lab 11/25/16 17:20 Received CBC WITH DIFF [HEME] Stat Lab 11/25/16 17:18 Completed LACTATE, PLASMA [CHEM] Stat Lab 11/25/16 17:18 Completed LIPASE [CHEM] Stat Lab 11/25/16 17:18 Completed PT [PROTIME WITH INR] [COAG] Stat Lab 11/25/16 17:18 Completed PTT [COAG] Stat Lab 11/25/16 17:18 Completed URINALYSIS W/POSS RFLX CULT [URINALYSIS] Stat Lab 11/25/16 18:05 Completed 0.9% Sodium Chloride Inj [Ns] 1,000 ml Med 11/25/16 18:33 Active IV 150 mls/hr Hydromorphone [Dilaudid] Med 11/25/16 18:32 Discontinued 1 mg IV NOW ONE Ondansetron [Zofran] Med 11/25/16 18:32 Discontinued 4 mg IV NOW ONE Result Diagrams: 11/28/16 06:30 11/28/16 06:30 - CONSULTS/PCP/HOSPITALIST Notification #1 *Consult/PCP/Hospitalist*: Hospitalist - Dr Mixon will see on the night club manager Time Discussed: 18:10 Departure - Departure Time of Disposition Decision: 20:10 DIAGNOSIS: Abdominal pain Qualifiers: Abdominal location: lower abdomen, unspecified Qualified Code(s): R10.30 - Lower abdominal pain, unspecified Disposition: ADMITTED INPATIENT 09 Certified Medical Emergency: Emergent Condition: Stable - Critical Care Note This patient required my direct & personal management of CC.: No
[2016-11-25] MEDS: NS 1,000 ML IV SCH ×2 (18:49→22:36)
[2016-11-25] MEDS ORDERED: VANCOMYCIN 1 GM/NS 1 GM/250 ML IVPB IV ONE (18:59)
[2016-11-25] MEDS ORDERED: ZOSYN 3.375 GM/NS 3.375 GM/50 ML IVPB IV ONE (19:01)
--- NOTE | 2016-11-25 20:40 | HISTORY AND PHYSICAL ---
PRIMARY CARE PHYSICIAN: Darrell Tobias MD. PRIMARY WAITER/WAITRESS: Kelsey Encarnacion MD. CHIEF COMPLAINT: Abdominal pain. HISTORY OF PRESENT ILLNESS: This is a 41-year-old male with past medical history of chronic pancreatitis, history of alcohol abuse who presented to the emergency department complaining of abdominal pain in the epigastric area that radiates to the back. The patient was admitted recently to [facility] from 11/13/2016 to 11/19/2016 for chronic pancreatitis. Two to 3 weeks before that episode he was admitted to [facility] for sepsis secondary to pseudocyst that was drained originally by endoscopic ultrasound. At any rate, the patient reports that after he left the hospital a few days ago he started noticing mild abdominal pain in the epigastric area that was getting progressively worse. He denies any nausea or vomiting. He denies any diarrhea. He denies any fever. He looks to be in pain upon my examination. Right now, the patient reports that the pain is 8 to 9 over 10 in intensity in the epigastric area, radiating to the back. The patient is going to be admitted for further evaluation and treatment. At the time of my dictation, the CT scan of the abdomen and pelvis has not been performed yet. PAST MEDICAL HISTORY: 1. Alcohol abuse. Patient reports the last time he drank alcohol was a few weeks ago and according to him, he reports that he is no longer drinking anymore. 2. Chronic pancreatitis secondary to longstanding alcohol consumption. 3. Chronic liver disease secondary to alcohol consumption. 4. History of alcoholic liver cirrhosis with esophageal varices. 5. Hypertension. 6. History of acute kidney injury that was related to hepatorenal syndrome that required hemodialysis. 7. Depression. 8. History of C. difficile infection. PAST SURGICAL HISTORY: Endoscopic ultrasound done in [facility] a few weeks ago. ALLERGIES: Patient had dyskinesia secondary to Reglan. SOCIAL HISTORY: Patient lives alone. He is . He denies using any illicit drugs. He does not use any illicit drugs. REVIEW OF SYSTEMS: Eleven systems reviewed and all symptoms are related to H and P. FAMILY HISTORY: uncle with lung cancer. Paternal grandmother and aunt with diabetes. PHYSICAL EXAMINATION: VITALS: Temperature 98.5 degrees, heart rate 123, respiratory rate 25, blood pressure 159/123, O2 saturation 95% on room air. GENERAL: This is a chronically ill-appearing, middle-aged male, lying in bed, in no acute distress. HEENT: Head is normocephalic, atraumatic. Anicteric sclerae and pale conjunctivae. Mucous membranes moist. Pupils equal, round, reactive to light and accommodation. NECK: Supple. No JVD noted. No carotid bruits. No lymphadenopathy. No thyromegaly. CARDIOVASCULAR: S1, S2 heard. No murmurs, gallops, or rubs. Regular rate and rhythm. RESPIRATORY: Clear bilaterally to auscultation. No work of breathing or using accessory muscles. ABDOMEN: Soft, but pretty much tender to palpation in the epigastric area and right upper quadrant. There are no signs of peritoneal irritation. Bowel sounds present. No organomegaly. EXTREMITIES: No clubbing, cyanosis, or edema. Peripheral pulses present in both legs. NEUROLOGICAL: Patient is alert and oriented x3. Able to move 4 extremities. Cranial nerves II through XII grossly intact. LABORATORY DATA: The CBC is completely unremarkable. BMP as well except glucose 189. The urine sample showed mild ketones. The amylase and lipase are completely normal. ASSESSMENT: 1. Acute on chronic pancreatitis. 2. Diabetes mellitus, type 2. 3. Alcoholic liver cirrhosis. 4. Hypertension. 5. Depression. PLAN: 1. The patient is being admitted to the hospital for another episode of chronic pancreatitis. Initially we were told that this patient may have sepsis but first of all, the CBC is completely normal. I think that the tachycardia that the patient has is secondary to severe abdominal pain. There is no fever documented here. There are no bands noted on the CBC. In any case, blood culture have been ordered but I do not see any reason why we need to provide antibiotics to this patient. In any case, we are going to check a CT scan of abdomen and pelvis later today to see if this patient truly needs antibiotics or not. He already received in the ER vancomycin and Zosyn. Dr. Gaspar from GI will be consulted to help us in the management of this patient 2. For diabetes mellitus type 2, because we are going to put this patient NPO, we will place this patient on sliding scale insulin. We are going to check hemoglobin A1c. 3. For alcoholic liver cirrhosis, we will continue with Nadolol for prevention of esophageal varices. 4. For hypertension, we will continue with home medications. 5. For depression, will continue with Lexapro. 6. Tomorrow morning Dr. Darrell Tobias or one of his associates will take over this patient. cc: Isma Riley MD MTDD
[2016-11-25] MEDS: DILAUDID IV PRN (21:05)
[2016-11-25] MEDS ORDERED: NORCO-5 PO PRN (21:56)
--- NOTE | 2016-11-25 22:18 | Diag Imaging Result Document ---
PROCEDURE NAME: CT ABD/PELVIS W/ IV CONT ONLY - 11/25/2016 CT ABDOMEN AND PELVIS WITH INTRAVENOUS CONTRAST: TECHNIQUE: Dose reduction protocol. COMPARISON: 11/13/2016. FINDINGS: There is mild fatty infiltration of the liver. The gallbladder is contracted. Normal spleen and adrenal glands. There is a complex cystic lesion in the body and tail of the pancreas measuring 3.7 x 6.1 cm. No significant change compared to the recent exam. No pancreatic calcifications. No inflammation about the pancreas. Normal enhancement of the kidneys. No hydronephrosis. Normal aorta. No bowel obstruction. No inflammation about the cecum. No abscess. No free air. The urinary bladder is mildly distended. The prostate is not enlarged. Abdominal varices are unchanged. IMPRESSION: Stable CT of the abdomen and pelvis. A preliminary report was given at 8:41 p.m.
[2016-11-25] MEDS: LOVENOX SUBQ SCH (22:35)
[2016-11-25] MEDS: SODIUM CHLORIDE 0.9% INJ SCH (22:35)
[2016-11-25] MEDS: PROTONIX IV SCH (22:35)
[2016-11-25] MEDS: CORGARD PO SCH (22:36)
[2016-11-25] MEDS: NORVASC PO SCH (22:36)
[2016-11-26] MEDS: DILAUDID IV PRN ×7 (00:09→20:29)
[2016-11-26] MEDS: NS 1,000 ML IV SCH ×5 (01:51→18:00)
[2016-11-26 08:06] LABS: MANUAL DIFF NEEDED? NO
[2016-11-26 08:11] LABS: BASO% 0.5 % (0.0-0.8); EOS% 1.6 % (0.0-10.0); HEMATOCRIT 37.2 % (42.0-52.0); HEMOGLOBIN 12.8 g/dL (14.0-18.0); IMM GRAN# 0.03 X1000 (0.0-0.04); IMM GRAN% 0.5 % (0.0-0.5); LYMPH# 1.65 X1000 (1.2-3.4); MCH 29.9 PG (27-31); MCHC 34.4 g/dL (33-37); MCV 86.9 FL (81-99); MONO# 0.54 X1000 (0.11-0.59); MONO% 8.8 % (1.7-9.3); MPV 9.2 FL (7.4-10.4); NEUT% 61.6 % (42.2-75.2); PLT 213 X1000 (130-400); RBC 4.28 XMIL (4.7-6.1)
[2016-11-26] MEDS: LEXAPRO PO SCH (09:19)
[2016-11-26] MEDS: NEURONTIN PO SCH ×3 (09:19→18:05)
[2016-11-26] MEDS: CREON PO SCH (09:19)
[2016-11-26 09:28] LABS: AGAP 13; BUN 12 mg/dL (8-22); CALCIUM 8.1 mg/dL (8.8-10.2); CHLORIDE 104 mmol/L (98-107); COSMO 283; POTASSIUM 4.1 mmol/L (3.5-5.1); SODIUM 142 mmol/L (136-145); TCO2 25 mmol/L (25-35)
[2016-11-26] MEDS: ZOFRAN IV PRN ×3 (12:48→20:31)
[2016-11-26] MEDS ORDERED: CATAPRES PO PRN (13:53)
--- NOTE | 2016-11-26 14:19 | PROGRESS NOTE ---
DATE: 11/26/2016 SUBJECTIVE: The patient complains of pain in the abdomen and says he has been refusing the [place], but complains of pain. He came in with an exacerbation of pancreatic pseudocyst pain, although stability is noted on CT scan. He has had drainage of the pseudocyst per Dr. Fishman recently. He is not having any steatorrhea. No nausea or vomiting. OBJECTIVE: VITAL SIGNS: Afebrile, pulse 86, blood pressure 137/113.Cardiovascular: RRR without murmur. Lungs: CTA. Abdomen: Soft. Active bowel sounds. Tender diffuse abdomen, upper aspect mid midportion worst. Extremities: No calf tenderness, cords, or edema. LABORATORIES: Reviewed from admission and from this morning show white count of 6, hemoglobin 12.8, platelets 213,000. Amylase and lipase are normal. BMP normal. ASSESSMENT: 1. Pancreatic pseudocyst. 2. History of alcoholism. 3. Manipulative behavior concerning for drug-seeking. 4. Alcoholic cirrhosis of the liver. 5. Hypertension. 6. Depression. PLAN: Keep him n.p.o., as we are doing. Will discontinue the [place] and give him Dilaudid sparingly. Continue to monitor blood sugars closely. Give IV fluids. Bowel rest. Continue Lexapro. Follow the patient clinically. I spoke with Dr. Gaspar in regard to his care, as well. cc: Darrell Tobias MD
[2016-11-26] MEDS: CORGARD PO SCH (20:36)
[2016-11-26] MEDS: NORVASC PO SCH (20:36)
[2016-11-26] MEDS: PROTONIX IV SCH (22:44)
[2016-11-26] MEDS: LOVENOX SUBQ SCH (22:44)
[2016-11-27] MEDS: ZOFRAN IV PRN ×6 (00:50→23:47)
[2016-11-27] MEDS: DILAUDID IV PRN ×6 (00:50→23:47)
[2016-11-27 07:25] LABS: MANUAL DIFF NEEDED? NO
[2016-11-27 07:35] LABS: BASO% 0.7 % (0.0-0.8); EOS# 0.13 X1000 (0.0-0.7); EOS% 2.9 % (0.0-10.0); HEMATOCRIT 36.9 % (42.0-52.0); HEMOGLOBIN 12.9 g/dL (14.0-18.0); IMM GRAN# 0.03 X1000 (0.0-0.04); IMM GRAN% 0.7 % (0.0-0.5); LYMPH# 1.31 X1000 (1.2-3.4); LYMPH% 29.7 % (20.5-51.1); MCH 29.9 PG (27-31); MCV 85.6 FL (81-99); MONO# 0.37 X1000 (0.11-0.59); MONO% 8.4 % (1.7-9.3); MPV 9.3 FL (7.4-10.4); NEUT% 57.6 % (42.2-75.2); PLT 169 X1000 (130-400); RBC 4.31 XMIL (4.7-6.1)
[2016-11-27 08:00] LABS: AGAP 12; BUN 7 mg/dL (8-22); CALCIUM 8.3 mg/dL (8.8-10.2); CHLORIDE 103 mmol/L (98-107); COSMO 278; POTASSIUM 4.1 mmol/L (3.5-5.1); SODIUM 140 mmol/L (136-145); TCO2 25 mmol/L (25-35)
[2016-11-27] MEDS: CREON PO SCH (09:10)
[2016-11-27] MEDS: LEXAPRO PO SCH (09:10)
[2016-11-27] MEDS: NEURONTIN PO SCH ×3 (09:10→17:47)
[2016-11-27] MEDS: NS 1,000 ML IV SCH (09:11)
--- NOTE | 2016-11-27 12:36 | PROGRESS NOTE ---
DATE: 11/27/2016 SUBJECTIVE: Patient is resting comfortably in bed. He said that his pain is better since yesterday. He is not nauseated, and he would rather try some Jell-O or liquid diet today. Denies any melena or bright red blood per rectum. OBJECTIVE: His vitals are stable. Abdomen is soft. Bowel sounds are audible. He has mild tenderness in epigastric area. IMPRESSION: 1. Recurrent pancreatitis. 2. History of pancreatic pseudocyst. 3. He does not have any evidence of acute pancreatitis now. His pain may be related to his chronic recurrent pancreatitis. PLAN: Continue current treatment and tapering IV pain medication. He would be better off on p.o. Start clear liquid diet and advance as tolerated. Further plans made according to his progress from here on. Dr. Encarnacion will be resuming care from tomorrow. cc: MD Darrell hPan MD
--- NOTE | 2016-11-27 13:03 | CONSULTATION ---
DATE OF CONSULTATION: 11/26/2016 CONSULTING PHYSICIAN: Dr. Staton. REASON FOR CONSULT: Abdominal pain. HISTORY: This is a 41-year-old, male, a patient of Dr. Encarnacion, who has been following him for his chronic pancreatitis. The patient has history of chronic pancreatitis, alcohol induced, and had pseudocyst, apparently that was drained by Dr. Fishman in [place] last month. After that, he did start having some abdominal pain and was admitted to the hospital, in [facility], and was discharged on 11/19/2016. He tells me that he was treated for chronic pancreatitis. After discharge he did well for a few days and started having symptoms again. Patient tells me that he started having similar symptoms as if he had a flare-up of his pancreatitis. He complains of epigastric pain associated with nausea. However he did not have any vomiting. Pain was not associated with any fever or chills. His bowel movements have been regular. Last bowel movements were yesterday. He has not had any melena or bright red blood per rectum. He has not had any steatorrhea. His appetite has been good until he started having symptoms. He was eating well until he started having abdominal pain. Interestingly he started having symptoms after he ran out of [place] that was prescribed on his discharge from [facility]. He denies any dysuria, polyuria, hematuria. PAST MEDICAL HISTORY: Significant for chronic pancreatitis with pancreatic pseudocyst which was drained, history of alcohol abuse. He claims he has not had any alcohol for the past 4 months. Alcoholic liver disease, cirrhosis of the liver with esophageal varices. History of hypertension. Depression. History of C. difficile infection. PAST SURGICAL HISTORY: He has had an endoscopic ultrasound and pseudocyst was drained. MEDICATION: Prior to his hospitalization, he has been on Corgard, Creon, Lantus, NovoLog, Neurontin, Lexapro, and Norvasc. ALLERGIES: Claims to be allergic to Reglan. SOCIAL HISTORY: He is single, lives by himself. Does not smoke. He claims he does not drink anymore. Does not use illicit drugs. FAMILY HISTORY: Noncontributory. REVIEW OF SYSTEMS: As per HPI as above. PHYSICAL EXAMINATION: General Appearance: A very pleasant white male. He is conscious, alert, appears to be in no distress. Vitals: Temperature is 97.9 degrees, pulse 86 per minute, breathing 20. His blood pressure has been 137/113. He weighs about 171 pounds. He is 5 feet 10 inches tall. HEENT: Head is atraumatic, normocephalic. Eyes: Conjunctivae normal. Sclerae anicteric. Nares are patent, no discharge. No mass or noted. Abdomen: Flat, soft, tender in epigastric area. No rebound tenderness. No guarding noted. Bowel sounds audible. Extremities: No pedal edema, cyanosis or clubbing was noted. TRAVEL WRITER: Grossly intact. No sensory or motor deficit. DIAGNOSTIC DATA: Labs reviewed which showed WBC of 6.16, hemoglobin 12.8, hematocrit 37.2, MCV 86.9, platelets were 213,000. PT 10.3, INR 23.7, sodium 142, potassium 4.1, chloride 104, bicarb is 25, BUN is 12, creatinine 0.9. LFTs were normal. Amylase 51, lipase 18. CT scan of the abdomen done on his admission which shows a complex cystic lesion in the tail of the pancreas which measured 3.7 x 6.1 cm. There was no pancreatic calcification noted. No inflammation was noted around the pancreas, and otherwise stable CT abdomen. IMPRESSION: Abdominal pain, most likely related to his alcohol induced pancreatitis. However his amylase and lipase are normal now and he has complex pseudocyst in the pancreatic tail. At this point, I do not see any inflammatory changes in or around the pancreas and his is normal. He has been requiring a good bit of pain medication to alleviate his abdominal pain. PLAN: The plan would be to continue the pain medication and then tapering down to see if we can get him off of it or switch it to p.o. before discharge, and then start with a clear liquid diet and advance as tolerated. For definitive management of his pain and discomfort which has been bothering him to the point that he is having to come the hospital this often, either referral to Pain Clinic or referral to [facility] for possible pancreatectomy. In the meantime continue current treatment and supportive care. I will cover the patient until Monday, where Dr. Encarnacion will be available again to assume care. cc: MD Darrell Phan MD
--- NOTE | 2016-11-27 15:00 | PROGRESS NOTE ---
DATE: 11/27/2016 SUBJECTIVE: Patient says less abdominal pain is present in his upper abdomen. Denies nausea, vomiting. He wants to try clear liquids. OBJECTIVE: Vital signs: Afebrile. Pulse 74, respirations 16, blood pressure 112/87, O2 saturation room air 100%. CV: RRR without murmur. Lungs: CTA. Abdomen: Soft, NT, ND. No mass. No HSM. Extremities: No edema. LABS: Shows sodium 140, potassium 4.1, chloride is 103, CO2 25, BUN 7, creatinine 0.8, calcium 8.3. White count 4.41, hemoglobin 12.9, platelets 169,000. ASSESSMENT: 1. Chronic pancreatitis. 2. Pancreatic pseudocyst. Stable. 3. History of alcoholism. 4. History of manipulative behavior, possibly drug-seeking. 5. Alcoholic cirrhosis of the liver. 6. Hypertension. 7. Depression. PLAN: For now will continue low-dose Dilaudid if required. Advanced to clear liquids. Continue IVF. Continue Lexapro. Repeat labs in the morning. Continue Neurontin, Creon, nadolol, Protonix. Prophylaxis of DVT with Lovenox. Continue Norvasc only nadolol for his blood pressure. cc: Darrell Tobias MD
[2016-11-27] MEDS: POTASSIUM CHLORIDE 10 MEQ in NS 1,000 ML IV SCH (15:45)
[2016-11-27] MEDS: PROTONIX IV SCH (21:15)
[2016-11-27] MEDS: LOVENOX SUBQ SCH (21:16)
[2016-11-27] MEDS: CORGARD PO SCH (21:16)
[2016-11-27] MEDS: NORVASC PO SCH (21:16)
[2016-11-28] MEDS: POTASSIUM CHLORIDE 10 MEQ in NS 1,000 ML IV SCH ×2 (01:39→16:09)
[2016-11-28] MEDS: DILAUDID IV PRN ×4 (04:00→23:54)
[2016-11-28] MEDS: ZOFRAN IV PRN ×5 (04:00→23:56)
[2016-11-28 07:08] LABS: MANUAL DIFF NEEDED? NO
[2016-11-28 07:15] LABS: BASO% 0.5 % (0.0-0.8); EOS# 0.08 X1000 (0.0-0.7); EOS% 1.8 % (0.0-10.0); HEMATOCRIT 35.5 % (42.0-52.0); HEMOGLOBIN 12.6 g/dL (14.0-18.0); LYMPH# 1.47 X1000 (1.2-3.4); LYMPH% 33.3 % (20.5-51.1); MCH 30.1 PG (27-31); MCHC 35.5 g/dL (33-37); MCV 84.7 FL (81-99); MONO# 0.33 X1000 (0.11-0.59); MONO% 7.5 % (1.7-9.3); MPV 9.5 FL (7.4-10.4); NEUT% 56.9 % (42.2-75.2); PLT 166 X1000 (130-400); RBC 4.19 XMIL (4.7-6.1)
[2016-11-28 07:49] LABS: AGAP 13; ALBUMIN 3.6 g/dL (3.5-5.0); ALKALINE PHOSPHATASE 86 U/L (32-122); AMYLASE 52 U/L (20-200); BUN 7 mg/dL (8-22); CALCIUM 8.5 mg/dL (8.8-10.2); CHLORIDE 102 mmol/L (98-107); COSMO 280; GOT 17 U/L (10-34); GPT 24 U/L (10-44); LIPASE 15 U/L (13-60); MAGNESIUM 1.8 mg/dL (1.5-2.7); POTASSIUM 3.9 mmol/L (3.5-5.1); SODIUM 141 mmol/L (136-145); TCO2 26 mmol/L (25-35); TOTAL BILIRUBIN 0.46 mg/dL (0.20-1.00)
[2016-11-28] MEDS: NEURONTIN PO SCH ×3 (08:30→17:22)
[2016-11-28] MEDS: CREON PO SCH (08:30)
[2016-11-28] MEDS: LEXAPRO PO SCH (08:30)
--- NOTE | 2016-11-28 09:18 | EKG Report ---
Test Performed on : 11/25/2016 5:04:26 PM Test Reason : ED. Not ordered in [place] Blood Pressure : / mmHG Vent. Rate : 139 BPM Atrial Rate : 139 BPM P-R Int : 134 ms QRS Dur : 102 ms QT Int : 288 ms P-R-T Axes : 060 097 055 degrees QTc Int : 438 ms Sinus tachycardia. Possible Left atrial enlargement Rightward axis Incomplete right bundle branch block Borderline ECG When compared with ECG of 24-OCT-2016 00:32, Incomplete right bundle branch block is now present Unconfirmed Result
--- NOTE | 2016-11-28 20:25 | PROGRESS NOTE ---
DATE: 11/28/2016 SUBJECTIVE: The patient is a 41-year-old, white male, admitted with recurrent acute on chronic pancreatitis. He states that he is ready to go home as he feels fine. He is tolerating a low-fat diet with regular food. He reports that his bowels are moving regular with no constipation or diarrhea. He denies blood in the stool. He is recently status post an EUS with drainage of a pseudocyst that drained black foul-smelling secretions. The pathology is pending. It should be noted that Dr. Fishman noted that his pancreas looked better and was otherwise stable. The patient is requesting something for pain control today. He was informed that our service does not manage his pain. OBJECTIVE: Vital Signs: On examination, his blood pressure is 119/85, pulse 76 , respiration 20, temperature of 98.1 degrees. HEENT: Negative for jaundice. His oropharyngeal mucosal membranes are normal. Pulmonary Examination: Lungs are clear to auscultation with normal expiratory effort. Cardiovascular Examination: Reveals regular rate and rhythm with no murmurs, gallops, or rubs. Abdominal Examination: Reveals normoactive bowel sounds. The abdomen is soft but diffusely tender with no rebound or guarding. Extremities: Bilaterally are negative for cyanosis, clubbing, or edema. OBJECTIVE DATA: Reveals a hemoglobin of 12.6 with hematocrit of 35.1 and a white count of 4.41. He has 166,000 platelets. Sodium is 141, potassium 3.9, chloride 102, CO2 26, BUN 7, creatinine 0.7 with a glucose 116. Calcium is 8.5, magnesium 1.8, total bilirubin 0.46, AST 17, ALT 24, alkaline phosphatase 86, total protein 6.0 and albumin 3.6. Amylase is 52 with a lipase of 15. IMPRESSION: 1. Acute on chronic pancreatitis. 2. History of peptic ulcer disease. 3. History of gastroesophageal reflux disease. 4. History of pancreatic pseudocyst. 5. History of cirrhosis secondary to ETOH with varices. RECOMMENDATIONS: 1. Continue Protonix once a day. 2. Continue nadolol 40 mg at bedtime. 3. Continue regular diet. 4. The patient has improved clinically since admission. In light of his interval improvement, it is reasonable to consider outpatient management. 5. Continue nadolol. Continue conservative management. 6. Additional recommendations to follow based on his clinical course. cc: MD Darrell Mauro MD MTDKamari
[2016-11-28] MEDS: SODIUM CHLORIDE 0.9% INJ SCH (20:37)
[2016-11-28] MEDS: CORGARD PO SCH (20:38)
[2016-11-28] MEDS: NORVASC PO SCH (20:38)
[2016-11-28] MEDS: LOVENOX SUBQ SCH (22:54)
[2016-11-28] MEDS: PROTONIX IV SCH (22:54)
[2016-11-29] MEDS: POTASSIUM CHLORIDE 10 MEQ in NS 1,000 ML IV SCH ×2 (05:03→09:53)
[2016-11-29 06:10] VITALS: BP 149/100
[2016-11-29] MEDS: DILAUDID IV PRN (07:53)
[2016-11-29] MEDS: NEURONTIN PO SCH (08:54)
[2016-11-29] MEDS: CREON PO SCH (08:54)
[2016-11-29] MEDS: LEXAPRO PO SCH (08:54)
--- NOTE | 2016-11-29 11:33 | PROGRESS NOTE ---
DATE: 11/29/2016 SUBJECTIVE: Patient doing better. He is eating well. No significant abdominal pain. OBJECTIVE: Vital signs: Afebrile. Vital signs stable. CV: RRR without murmur. Lungs: CTA. Abdomen: Minimal epigastric tenderness. Extremities: No calf tenderness, cords or edema. Labs yesterday normal essentially. ASSESSMENT: 1. Chronic pancreatitis. 2. Chronic pancreatic pseudocyst status post drainage per Dr. Smith. 3. Hypertension. 4. Depression. 5. Alcoholic cirrhosis. 6. Alcoholism. PLAN: Counseling him to stay off alcohol and drugs and to take medicines as listed. Follow up with Dr. Encarnacion in 3 weeks and with me in 10-14 days. Reiterated the need to stay off narcotics. cc: Darrell Tobias MD
--- NOTE | 2016-12-04 18:36 | DISCHARGE SUMMARY ---
ADMISSION DATE: 11/25/2016 DISCHARGE DATE: 11/29/2016 DISCHARGE DIAGNOSES: 1. Acute on chronic pancreatitis. 2. Narcotic seeking behavior. 3. Insulin-dependent diabetes mellitus. 4. Alcoholic liver cirrhosis. 5. Alcoholism. 6. Hypertension. 7. Depression. 8. Pancreatic pseudocyst prominent and followed by Dr. Fishman in [place] status post drainage. CONSULTANTS: Dr. Gaspar/Dr. Encarnacion. PROCEDURES: CT abdomen and pelvis with IV contrast only revealing stable cystic lesion in the body and tail of the pancreas consistent with known pancreatic pseudocyst recently drained per Dr. Fishman. REASON FOR ADMISSION AND HOSPITAL COURSE: The patient is a 41-year-old white male followed by my medical practice and also followed by Dr. Encarnacion his [employer] [employer]. He has been sent to Dr. Fishman [employer] in [place] who underwent pancreatic pseudocyst drainage recently. The patient came in with complaints of abdominal pain. He says he has been off alcohol. He has a long history of alcoholism, chronic pancreatitis and pancreatic pseudocyst. In fact, pancreatic insufficiency rendering him to have IDDM. Patient was given IV narcotics initially and then we weaned him down on that as quickly as possible keeping him NPO for bowel rest. His liver function tests and amylase and lipase were normal during hospitalization with a creatinine of 0.7. White count was 4 to 7 during hospitalization. Hemoglobin 12.6-14.6, and platelets were normal. INR 0.98 PTT 23.7. Urinalysis 30 of protein. Patient was maintained on his antidepressants, nadolol and PPI. He improved markedly in a quick matter and under observation per Dr. Encarnacion and Dr. Gaspar. It was felt by 4:25 that he had improved to the point he could be discharged home. He had slowly been increased back on his diet, and he will be on a bland diet and avoidance of alcohol was reiterated. DISCHARGE MEDICATIONS: 1. Lexapro 20 mg p.o. daily. 2. NovoLog. 3. FlexPen. 4. Sliding scale with meals. 5. Lantus 15 units subcutaneous every morning. 6. Creon 89258 units 2 p.o. t.i.d. with meals. 7. Norvasc 10 mg p.o. at bedtime. 8. Nadolol 40 mg p.o. at bedtime. 9. Neurontin 100 mg p.o. t.i.d. which was added for pain control during the hospitalization. 10. Omeprazole 40 mg p.o. daily. Patient will follow up in the office with me and Dr. Encarnacion in the next 3 weeks. cc: Darrell Tobias MD
== END 2016-11-29 10:05 | disposition home or self-care (01) ==
LOC: ED 16:56 → SUATTDRO 16:57 → 3N 16:57
PROVIDERS: ADMIT Family Medicine; ATTEND Family Medicine

== ENCOUNTER 2017-01-17 13:19 | Observation (INO) ==
[2017-01-17 15:56] LABS: MANUAL DIFF NEEDED? NO
[2017-01-17 16:12] LABS: BASO% 0.4 % (0.0-0.8); EOS# 0.04 X1000 (0.0-0.7); EOS% 0.4 % (0.0-10.0); HEMOGLOBIN 15.3 g/dL (14.0-18.0); IMM GRAN# 0.08 X1000 (0.0-0.04); IMM GRAN% 0.7 % (0.0-0.5); MCHC 35.6 g/dL (33-37); MCV 84.3 FL (81-99); MONO# 0.75 X1000 (0.11-0.59); MONO% 6.7 % (1.7-9.3); MPV 9.5 FL (7.4-10.4); NEUT% 75.8 % (42.2-75.2); PLT 194 X1000 (130-400)
[2017-01-17 16:35] LABS: AGAP 14; ALKALINE PHOSPHATASE 120 U/L (32-122); AMYLASE 56 U/L (20-200); BUN 10 mg/dL (8-22); CALCIUM 9.6 mg/dL (8.8-10.2); CHLORIDE 99 mmol/L (98-107); COSMO 274; GOT 33 U/L (10-34); GPT 36 U/L (10-44); LIPASE 22 U/L (13-60); POTASSIUM 4.5 mmol/L (3.5-5.1); SODIUM 136 mmol/L (136-145); TCO2 23 mmol/L (25-35); TOTAL BILIRUBIN 0.62 mg/dL (0.20-1.00); TOTAL PROTEIN 7.5 g/dL (6.3-8.3)
[2017-01-17] MEDS ORDERED: DILAUDID IV ONE ×2 (17:24→18:50)
[2017-01-17] MEDS ORDERED: ZOFRAN IV ONE (17:24)
[2017-01-17] MEDS ORDERED: NS 1,000 ML IV ONE (17:24)
--- NOTE | 2017-01-17 18:02 | Diag Imaging Result Doc PS360 ---
EXAM: ABDOMEN/PELVIS W/O CONTRAST HISTORY: abdominal pain TECHNIQUE: CT urogram without contrast COMMENT: Compared to the previous study of 02/04/2016 and that of 11/25/2016. There is a pancreatic fluid collection in the body and tail of the pancreas measuring 7.5 x 4.2 cm in the axial plane. This is presumably a sequela of the pancreatitis seen in 2016. This has increased in size since 11/25/2016 now from the previous measurements of 6.4 x 3.8 cm. There is a smaller collection in the head of the pancreas measuring less than 15 mm in transverse dimension, versus 18 mm on the previous study. There are areas of somewhat geographic hypodensity within the liver most notably in the anterior right hepatic lobe, adjacent to the inferior vena cava and luana hepatis and inferiorly and anteriorly in the right hepatic lobe around image 46. These abnormalities were not evident at the time the previous study and are probably related to focal fatty change. This has progressed since the previous study of 11/25/2016 and was not evident on the previous study of 2015. The spleen is at the upper limits of normal in size but unchanged since the previous study. There is no evidence of nephrolithiasis or hydronephrosis. No evidence of cholelithiasis is present. There is no evidence of bowel obstruction or appendicitis. No free fluid is present in the pelvis. IMPRESSION: Residual pseudocysts in the pancreas, most likely resulting from the acute pancreatitis seen on the previous study of 02/04/2016. The collection in the pancreatic body and tail is slightly larger than on 11/25/2016, however the collection in the pancreatic head has decreased in size. Worsening of focal fatty change in the liver. Electronically signed by Dann Strong 01/17/2017 6:00 PM
[2017-01-17 18:30] LABS: URINE MICRO REVIEW NEEDED? NO; URINE SOURCE CLEAN CATCH
[2017-01-17] MEDS ORDERED: ZOSYN 4.5 GM/NS 4.5 GM/100 ML IVPB IV ONE (18:39)
--- NOTE | 2017-01-17 18:40 | PROVIDER DOCUMENTATION ---
This chart was entered by Ron Hadley Scribe, acting as scribe for Shelton Jules MD. HPI-Abdominal Pain/GI Problem - General Chief Complaint: Abdominal Pain Stated Complaint: ABD PAIN,VOMITING BLOOD Time Seen by Provider: 01/17/17 17:24 Source: patient Allergies/Adverse Reactions: Patient Allergies Allergy/AdvReac Type Severity Reaction Status Date / Time metoclopramide HCl * AdvReac DYSTONIA Verified 01/17/17 17:39 [From [facility]] Home Medications: Home Medication List Medication Instructions Recorded Confirmed Last Taken Type Insulin Aspart [Novolog Flexpen] See Protocol SQ TID 10/12/16 01/17/17 01/17/17 History Amlodipine Besylate [Norvasc] 10 mg PO QHS 11/14/16 01/17/17 01/17/17 History Docusate Sodium [Colace] 100 mg PO DAILY #10 capsule 01/08/17 01/17/17 01/17/17 Rx Escitalopram Oxalate [Escitalopram 1 tab PO DAILY 01/08/17 01/17/17 01/17/17 History Oxalate] Insulin Glargine [Lantus] 15 unit SQ QAM 01/08/17 01/17/17 01/17/17 History Lipase/Protease/Amylase [Creon Dr 1 tab PO AC 01/08/17 01/17/17 01/17/17 History 12,000 Units Capsule] Magnesium Citrate [Citrate of 300 ml PO ONCE #1 bottle 01/08/17 01/17/17 Rx Magnesia] Nadolol [Nadolol] 1 tab PO DAILY 01/08/17 01/17/17 01/17/17 History - History of Present Illness-ABD Nature of Presenting Problems: 41 yo M presents to the ER with complaint of abdominal pain, nausea, and vomiting since last night. Pt has a hx of pancreatitis. PT states he is throwing up blood. Abdominal Pain Onset Location: reports: RUQ, RLQ, epigastric Pain Radiation: reports: no radiation Quality of Pain: reports: sharp Severity in ED: reports: mild Onset/Duration: reports: 24 hours ago Timing: reports: still present Associated Symptoms: reports: nausea, vomiting Last BM: unsure Rectal Pain: reports: none Review of Systems - Adult - REVIEW OF SYSTEMS - ADULT Constitutional: denies: chills, fever Cardiovascular: denies: chest pain, palpitations Respiratory: denies: cough, shortness of breath Gastrointestinal: reports: see HPI, abdominal pain, nausea, vomiting Genitourinary: denies: dysuria, hematuria All Other Systems: Reviewed and Negative Past History - Adult - PAST MEDICAL HISTORY-ADULT Review of Records: reports: Old Records Reviewed, Nursing Assessment Review, Medications Reviewed, Social history reviewed & non-contributory. Major Childhood Illnesses: reports: denies history Cardiovascular: reports: HTN Respiratory: reports: denies history Gastrointestinal: reports: GERD, pancreatitis, other (gastritis and esophagitis) Obstetrical/Gynecological: reports: denies history Genitourinary: denies: kidney disease, kidney stones, polycystic kidney disease , chronic UTI's Musculoskeletal: reports: denies history Neurological: reports: denies history Psychiatric: reports: depression Endocrine/Immune: reports: Diabetes Other Conditions: reports: denies history Additional History: Alcoholic - PRIOR SURGERIES/PROCEDURES Surgical/Procedure History: reports: EGD, other (EOS performed 11/04/[address] Cervantes at [facility]) - PRIOR HOSPITALIZATIONS Prior Hospitalizations: reports: for similar symptoms - IMMUNIZATION STATUS Childhood Immunizations: See Nurse Assessment Flu Vaccine: See Nurse Assessment - FAMILY HISTORY Family History: reviewed, not pertinent Physical Exam-General - PHYSICAL EXAM-ADULT Initial Vital Signs Reviewed: Yes - CONSTITUTIONAL General Appearance: appears well, alert, moderate distress - RESPIRATORY Respiratory: chest non-tender, lungs clear, normal breath sounds - CARDIOVASCULAR Cardiovascular: normal peripheral pulses, tachycardia - GASTROINTESTINAL (ABDOMEN) Abdominal Exam: normal bowel sounds, soft, guarding, tenderness - MUSCULOSKELETAL Extremity: normal range of motion, non-tender, normal gait - SKIN Integumentary: normal color, normal turgor, warm/dry - NEUROLOGIC Neurologic: consumer attorney II-XII nml as tested, grossly normal Progress - PLAN OF CARE/RESULTS Progress/Plan/Lab Results: Vital Signs - 8 hr 01/17/17 13:54 Temperature 99.4 F Pulse Rate 121 H Respiratory Rate 18 Blood Pressure 155/94 O2 Sat by Pulse Oximetry 100 Laboratory Results - last 24 hr 01/17/17 01/17/17 15:35 15:35 WBC 11.24 H RBC 5.10 Hgb 15.3 Hct 43.0 MCV 84.3 MCH 30.0 MCHC 35.6 RDW Std Deviation 15.8 H Plt Count 194 MPV 9.5 Immature Gran % (Auto) 0.7 H Neut % (Auto) 75.8 H Lymph % (Auto) 16.0 L Colbert % (Auto) 6.7 Eos % (Auto) 0.4 Baso % (Auto) 0.4 Immature Gran # (Auto) 0.08 H Neut # (Auto) 8.53 H Lymph # (Auto) 1.80 Colbert # (Auto) 0.75 H Eos # (Auto) 0.04 Baso # (Auto) 0.04 Sodium 136 Potassium 4.5 Chloride 99 Carbon Dioxide 23 L Anion Gap 14 BUN 10 Creatinine 0.8 Estimated GFR/1.73 m2 > 60 BUN/Creatinine Ratio 13 Glucose 151 H Calculated Osmolality 274 Calcium 9.6 Total Bilirubin 0.62 AST 33 ALT 36 Alkaline Phosphatase 120 Total Protein 7.5 Albumin 5.0 Globulin 2.5 Albumin/Globulin Ratio 2.0 Amylase 56 Lipase 22 Orders Category Date Time Status NPO Diet 01/17/17 15:38 Active AMYLASE [CHEM] Stat Lab 01/17/17 15:35 Completed CBC WITH ELECTRONIC DIFF [HEME] Stat Lab 01/17/17 15:35 Completed COMPREHENSIVE METABOLIC PANEL [CHEM] Stat Lab 01/17/17 15:35 Completed LIPASE [CHEM] Stat Lab 01/17/17 15:35 Completed Result Diagrams: 01/17/17 15:35 01/17/17 15:35 - CT/MRI 1 CT Study: Abdomen Impression: See EMR Report - CONSULTS/PCP/HOSPITALIST Notification #1 *Consult/PCP/Hospitalist*: Discussed with Dr Fry Admi to Dr Tobias Time Discussed: 18:35 Consult Disposition: Admit Departure - Departure Date of Disposition Decision: 01/17/17 Time of Disposition Decision: 18:36 DIAGNOSIS: Pancreatitis Qualifiers: Chronicity: acute Pancreatitis type: unspecified pancreatitis type Acute pancreatitis complication: unspecified Qualified Code(s): K85.90 - Acute pancreatitis without necrosis or infection, unspecified Abdominal pain Qualifiers: Abdominal location: generalized Qualified Code(s): R10.84 - Generalized abdominal pain Disposition: ADMITTED INPATIENT 09 Certified Medical Emergency: Emergent Condition: Fair Referrals and Follow-Ups: Tasneem Tobias [Primary Care Provider] - - Critical Care Note This patient required my direct & personal management of CC.: No Comments: A 41 y/o with recurrent pancreatitis presented with another episode, pt improved aftere pain medication and IVF will aslo give zosyn for emperic coverage and admit fo rfurther evalaution This chart was documented by the indicated scribe, (Ron Hadley, Omi) and accurately reflects the services I performed and decisions made by me, Shelton Jules MD, as attested by the provider's signature.
[2017-01-17 18:41] LABS: BILIRUBIN URINE NEGATIVE (NEGATIVE); BLOOD URINE NEGATIVE (NEGATIVE); COLOR YELLOW; GLUCOSE URINE NEGATIVE (NEGATIVE); LEUKOCYTES URINE NEGATIVE (NEGATIVE); NITRITE URINE NEGATIVE (NEGATIVE); PROTEIN URINE 30 mg/dL (NEGATIVE); SP GRAVITY URINE 1.027; TURBIDITY URINE CLEAR (CLEAR); UROBILINOGEN URINE NORMAL (NORMAL)
[2017-01-17] MEDS ORDERED: SODIUM CHLORIDE 0.9% INJ ONE (18:41)
[2017-01-17] MEDS ORDERED: PEPCID IV ONE (18:41)
[2017-01-17 18:44] LABS: UR EPITHELIAL CELLS <10 /HPF (<10); URINE BACTERIA NEGATIVE /HPF; URINE RBC <10 /HPF (<10); URINE WBC <10 /HPF (<10)
[2017-01-17] MEDS ORDERED: PRILOSEC PO ONE (20:05)
--- NOTE | 2017-01-17 20:33 | HISTORY AND PHYSICAL ---
ATTENDING PHYSICIAN: Darrell Tobias MD ADMITTING PHYSICIAN: Leobardo Fry Jr., MD CHIEF COMPLAINT: Abdominal pain that started yesterday. HISTORY OF PRESENT ILLNESS: The patient is a 41-year-old white male who comes in complaining of abdominal pain, nausea and vomiting since last night. He has had a history of pancreatitis and pancreatic pseudocyst. CT scan shows some increase in the fluid and the pseudocyst in the body and tail, but less than previous in the head of the pancreas. CT scan also showed fatty liver disease. The patient is hurting in the epigastric area and over the pancreas as well as a little bit in the right upper quadrant and right lower quadrant. He says that it is very severe to him and a 10/10 in pain. Patient also said when he was throwing up, he also threw up a little bit of blood. PAST HISTORY: Patient has been on insulin and on blood pressure medications. HOME MEDICATIONS: NovoLog FlexPen, amlodipine 10 mg p.o. at bedtime, Lexapro 1 tablet daily, list did not say whether there was a 10 mg or a 20 mg tablet, Lantus insulin 15 units subcutaneous q.a.m. Creon 12,000 units, one tablet p.o. after meals, magnesium citrate. Apparently that was an old prescription. Nadolol 40 mg daily, but I do not have the dosage on that. ALLERGIES: Reglan. He apparently got a dystonic reaction from it. SOCIAL HISTORY: He has been a heavy drinker in the past. He says that he has stopped. PREVIOUS SURGERIES: None. ADMISSIONS: He has had multiple admissions to the hospital for abdominal pain. FAMILY HISTORY: Unremarkable. REVIEW OF SYSTEMS: Neurological: Denies headaches, seizures, visual problems, hearing problems. Pulmonary: Denies cough, wheezing, shortness of breath. Cardiovascular: Denies chest pain, heart palpitations, PND, orthopnea. No pedal edema. GI: The patient has had some nausea with vomiting and vomited up just a small amount of blood. He has had abdominal pain since last night. : Denies any difficulty with urination. Musculoskeletal: Denies any problems with arthritis or injuries. He has seen Dr. Encarnacion, apiculturist here in [facility] and Dr. Fishman in [place]. PHYSICAL EXAMINATION: VITAL SIGNS: Temperature is 99.4 degrees Fahrenheit. Pulse is 121, respirations 18, blood pressure 155/94, O2 saturations 100%. HEENT: Normocephalic. EOMs intact. PERRLA. Throat clear. Fundi not seen well due to constriction of pupils. NECK: Supple without thyromegaly, lymphadenopathy, carotid bruits. LUNGS: Clear to auscultation and percussion without rhonchi, rales, or wheezes. HEART: Regular rate and rhythm without murmurs, gallops or friction rubs. ABDOMEN: Tender, especially in the epigastric region and just below that over the pancreas. A little bit of tenderness in the right lower quadrant and right upper quadrant. GENITOURINARY: External genitalia and rectal exams are deferred. LYMPHATIC: Lymph nodes are nonpalpable in the cervical, supraclavicular, and axillary regions. NEUROLOGICAL: Cranial nerves 2-12 intact. Grossly sensory and motor intact. Reflexes 1+ all. LABORATORY: Shows a white count 11,240, hemoglobin 15.3. Total bilirubin 0.62. Liver function tests essentially normal. Amylase 56, lipase 22. IMAGING: CT scan of the abdomen showed residual pseudocyst in the pancreas, most likely from previous acute pancreatitis done on study a year ago. He does have some hepatosteatosis that has worsened. The radiologist did not see particularly that they saw pancreatitis on the CT scan, and amylase and lipase are negative. The patient has told me that they have been negative or normal in the past. He does not know what the cause of his pancreatitis is except that he was a heavy drinker at one time. ASSESSMENT: 1. Abdominal pain. 2. Pancreatic pseudocyst. 3. Hypertension. 4. Diabetes mellitus. PLAN: We will admit, control pain. We will get Gastroenterology to see. cc: Leobardo Fry Jr, MD
[2017-01-17] MEDS: HUMULIN R SUBQ SCH (21:00)
[2017-01-17] MEDS ORDERED: PROTONIX 80 MG in NS 80 ML IV ONE (21:04)
[2017-01-17] MEDS ORDERED: SANDOSTATIN IV ONE (21:04)
[2017-01-17] MEDS: NS 1,000 ML IV SCH (21:30)
[2017-01-17] MEDS: DILAUDID IV PRN (21:32)
[2017-01-18] MEDS: SANDOSTATIN 500 MICROGM in D5W 100 ML IV SCH ×2 (00:05→08:27)
[2017-01-18] MEDS: PROTONIX 80 MG in NS 80 ML IV SCH ×3 (00:05→17:17)
[2017-01-18] MEDS: DILAUDID IV PRN ×3 (03:25→06:30)
--- NOTE | 2017-01-18 05:39 | EKG Report ---
Test Performed on : 01/17/2017 11:16:45 PM Test Reason : pain Blood Pressure : / mmHG Vent. Rate : 093 BPM Atrial Rate : 093 BPM P-R Int : 166 ms QRS Dur : 106 ms QT Int : 350 ms P-R-T Axes : 030 032 020 degrees QTc Int : 435 ms Normal sinus rhythm. Normal ECG When compared with ECG of 25-NOV-2016 17:04, Vent. rate has decreased BY 46 BPM Incomplete right bundle branch block is no longer present Unconfirmed Result
[2017-01-18 06:20] LABS: AGAP 12; ALBUMIN 3.7 g/dL (3.5-5.0); ALKALINE PHOSPHATASE 85 U/L (32-122); BUN 9 mg/dL (8-22); CALCIUM 8.2 mg/dL (8.8-10.2); CHLORIDE 102 mmol/L (98-107); COSMO 277; GOT 28 U/L (10-34); GPT 26 U/L (10-44); HDL 63 mg/dL (35-55); LDL 70 mg/dL; POTASSIUM 4.3 mmol/L (3.5-5.1); SODIUM 138 mmol/L (136-145); TCO2 24 mmol/L (25-35); TOTAL BILIRUBIN 0.56 mg/dL (0.20-1.00); TOTAL PROTEIN 5.7 g/dL (6.3-8.3); TRIGLYCERIDES 220 mg/dL (39-160); VLDL 44 mg/dL
[2017-01-18] MEDS: HUMULIN R SUBQ SCH ×4 (06:40→21:26)
[2017-01-18] MEDS: NS 1,000 ML IV SCH ×2 (08:01→15:03)
[2017-01-18] MEDS ORDERED: DILAUDID IV PRN (08:31)
[2017-01-18] MEDS ORDERED: DILAUDID PCA VIAL ONE (09:40)
[2017-01-18] MEDS ORDERED: LABETALOL ONE (09:41)
[2017-01-18] MEDS ORDERED: ZOFRAN IV PRN (09:50)
[2017-01-18] MEDS ORDERED: NARCAN IV PRN (09:50)
[2017-01-18] MEDS ORDERED: LR 1,000 ML IV SCH (09:50)
[2017-01-18] MEDS: DILAUDID ONE ×4 (09:50→10:26)
[2017-01-18] MEDS ORDERED: BENADRYL IV PRN (09:50)
[2017-01-18] MEDS ORDERED: DIPRIVAN 1% ONE (10:28)
[2017-01-18] MEDS ORDERED: FENTANYL ONE (10:28)
[2017-01-18] MEDS ORDERED: NS 1,000 ML ONE (10:56)
[2017-01-18] MEDS ORDERED: PHENERGAN ONE (11:09)
[2017-01-18] MEDS ORDERED: BENADRYL ONE (11:38)
[2017-01-18 12:49] LABS: MANUAL DIFF NEEDED? NO
[2017-01-18 13:00] LABS: BASO% 0.4 % (0.0-0.8); EOS# 0.06 X1000 (0.0-0.7); EOS% 1.1 % (0.0-10.0); HEMATOCRIT 36.7 % (42.0-52.0); HEMOGLOBIN 12.8 g/dL (14.0-18.0); IMM GRAN# 0.02 X1000 (0.0-0.04); IMM GRAN% 0.4 % (0.0-0.5); LYMPH# 1.28 X1000 (1.2-3.4); LYMPH% 23.2 % (20.5-51.1); MCH 30.3 PG (27-31); MCHC 34.9 g/dL (33-37); MONO# 0.38 X1000 (0.11-0.59); MONO% 6.9 % (1.7-9.3); MPV 8.8 FL (7.4-10.4); PLT 126 X1000 (130-400); RBC 4.22 XMIL (4.7-6.1)
--- NOTE | 2017-01-18 13:36 | PROGRESS NOTE ---
DATE: 01/18/2017 SUBJECTIVE: The patient complains of epigastric pain, severe. He has just had a pain pump put in per Dr. Gomez for pain control ordered by Dr. Fry overnight. OBJECTIVE: Vital Signs: Afebrile. Vital signs stable. CV: RRR. Lungs: CTA. Abdomen: Soft, active bowel sounds. Moderate tenderness in epigastrium. Extremities: No calf tenderness, cords or edema. Neurologic: Nonfocal. LAB DATA: Shows normal amylase, lipase, normal liver function tests. Electrolytes stable and kidney function normal. White count decreased overnight from 11-6. CT scan abdomen and pelvis reviewed. ASSESSMENT: 1. Pancreatic pseudocysts. 2. Chronic pancreatitis. 3. Long history of alcoholism with patient off alcohol the last little while. 4. Manipulative behavior for alcohol and drugs. 5. Depression. PLAN: Dr. Encarnacion has the patient on octreotide he is also on IV PPI and Carafate and Creon with his meals. He will be kept largely NPO. We will try to taper his pain medications as quickly as we can if okay with Dr. Encarnacion. cc: Darrell Tobias MD
[2017-01-18] MEDS: CARAFATE LIQUID PO SCH ×3 (14:17→21:20)
[2017-01-18] MEDS: PHENERGAN IV PRN ×2 (17:21→23:40)
[2017-01-18] MEDS: SODIUM CHLORIDE 0.9% INJ PRN (23:40)
[2017-01-19] MEDS: NS 1,000 ML IV SCH ×5 (01:17→15:02)
[2017-01-19] MEDS: CARAFATE LIQUID PO SCH ×4 (02:45→20:46)
--- NOTE | 2017-01-19 03:23 | OPERATIVE NOTE ---
PROCEDURE DATE: 01/18/2017 REFERRING PHYSICIAN: Leobardo Fry M.D. PRIMARY CARE PROVIDER: Darrell Tobias M.D. INDICATION FOR PROCEDURE: 1. Nausea with vomiting. 2. Hematemesis. 3. Epigastric pain. PROCEDURE PERFORMED: Esophagogastroduodenoscopy. CONSENT: Informed consent was obtained from the patient prior to the procedure. The risks, benefits, and alternatives were discussed. MEDICATIONS: The patient received monitored anesthesia care. PERFORMING PHYSICIAN: Kelsey Encarnacion M.D. ASSISTANTS: 1. [facility] 2. Jo Ann Fish RN. 3. Klarissa Bethea CRNA. 4. Saleem Gamble M.D. (anesthesia). 5. Student observer, Yolie Dhaliwal MS-3. COMPLICATIONS: There were no complications. ESTIMATED BLOOD LOSS: None. SPECIMENS REMOVED: None. FINDINGS: After sedation was achieved, the upper endoscope was inserted to the 2nd portion of the duodenum. The hypopharynx appeared endoscopically normal. In the tubular esophagus, there were medium varices. There was no stigmata of bleeding. In the distal esophagus, there were streaks of erythema and erosions consistent with grade B to C erosive esophagitis. The esophagitis began at 35 and extended to the GE junction at 40 cm. The GE junction was present at 40 cm from the incisors. In the gastric lumen, there was erosive gastritis but no ulcer. On retroflexed view, the fundus appeared normal except for the aforementioned erosive gastritis. The pylorus was patent. In the duodenal bulb, there was severe duodenitis. There was a duodenal ulcer with a whitish base and no stigmata of bleeding. The second portion of the duodenum appeared inflamed. The ampulla was of Vater was patent. There was no stone seen. There was no pancreas divisum visualized. After the exam was complete, the lumen was decompressed and the scope was removed without incident. IMPRESSION: 1. Medium esophageal varices with no stigmata of bleeding. 2. Grade B to C erosive esophagitis. 3. Erosive gastritis. 4. Severe duodenitis. 5. Duodenal ulcer with a whitish base. 6. Prominent ampulla of Vater of unknown significance. RECOMMENDATION: 1. Continue Protonix drip for a total of 72 hours. 2. Discontinue the octreotide drip as there is no evidence of variceal bleeding or AVMs. 3. Add Carafate 1 g 4 times a day for 12 weeks, then stop. 4. Monitor serial CBCs. 5. Consider Nadolol 40 mg po daily with a follow-up EGD in 6-12 months to assess the varices. 6. We will have the patient return to clinic 4-6 weeks after hospital discharge. cc: MD Darrell Mauro MD Roger H. Moss Jr, MD MTDD
[2017-01-19] MEDS: PROTONIX 80 MG in NS 80 ML IV SCH ×3 (04:00→23:08)
[2017-01-19 07:03] LABS: BASO% 0.2 % (0.0-0.8); EOS# 0.08 X1000 (0.0-0.7); EOS% 1.2 % (0.0-10.0); HEMATOCRIT 33.9 % (42.0-52.0); HEMOGLOBIN 11.7 g/dL (14.0-18.0); IMM GRAN# 0.03 X1000 (0.0-0.04); IMM GRAN% 0.5 % (0.0-0.5); LYMPH# 1.34 X1000 (1.2-3.4); LYMPH% 20.7 % (20.5-51.1); MANUAL DIFF NEEDED? NO; MCH 30.3 PG (27-31); MCHC 34.5 g/dL (33-37); MCV 87.8 FL (81-99); MONO# 0.61 X1000 (0.11-0.59); MONO% 9.4 % (1.7-9.3); MPV 9.3 FL (7.4-10.4); PLT 136 X1000 (130-400); RBC 3.86 XMIL (4.7-6.1)
[2017-01-19 07:32] LABS: AGAP 14; ALKALINE PHOSPHATASE 80 U/L (32-122); BUN 8 mg/dL (8-22); CALCIUM 8.2 mg/dL (8.8-10.2); CHLORIDE 101 mmol/L (98-107); COSMO 278; GOT 25 U/L (10-34); GPT 24 U/L (10-44); POTASSIUM 3.9 mmol/L (3.5-5.1); SODIUM 140 mmol/L (136-145); TCO2 25 mmol/L (25-35); TOTAL BILIRUBIN 0.68 mg/dL (0.20-1.00)
[2017-01-19] MEDS: SODIUM CHLORIDE 0.9% INJ PRN (10:23)
[2017-01-19] MEDS: PHENERGAN IV PRN (10:23)
[2017-01-19] MEDS: DILAUDID PCA VIAL IV PRN (11:12)
[2017-01-19] MEDS: HUMULIN R SUBQ SCH ×4 (11:38→20:48)
--- NOTE | 2017-01-19 13:48 | PROGRESS NOTE ---
DATE: 01/19/2017 SUBJECTIVE: Patient is sitting up in his bed. He is doing okay this morning. He has eaten some and has tolerated it. He had an EGD yesterday with the results showing medium esophageal varices with no bleeding. Grade B to C erosive esophagitis and erosive gastritis. Severe duodenitis. Duodenal ulcers were with whitish base. Prominent ampulla of Vater of unknown significance. OBJECTIVE: Vital signs: Afebrile. Blood pressure is elevated some. CV: RRR without murmur. Lungs: CTA. Abdomen: Mild to moderate tenderness epigastric. Extremities: No calf tenderness, cords, or edema. LABS: Show a sodium 140, potassium 3.9, chloride 101, CO2 25, BUN 8, creatinine 1.0, glucose 103, calcium 8.2, total bilirubin 0.68, AST 25, ALT 24, alkaline phosphatase 80, total protein 6.0, albumin 4.0. White count 6.4, hemoglobin 11.7, platelets 136,000, neutrophils 68, lymphocytes 21. ASSESSMENT: 1. Duodenal ulcer. 2. Gastritis and esophagitis. 3. Moderate esophageal varices. 4. Pancreatic pseudocysts. 5. Chronic pancreatitis, stable. 6. History of alcohol abuse. 7. Narcotic seeking. PLAN: At this time we will continue IV PPI for 3 days as recommended by Dr. Encarnacion. Continue Carafate. He is now off octreotide. We will resume antihypertensive from home. Continue pain pump for now per Dr. Gomez. Hopefully discharge in about 3 days if he does well. He is on a GI soft diet now presently. Will observe. cc: Darrell Tobias MD
[2017-01-19] MEDS: NORVASC PO SCH (20:46)
--- NOTE | 2017-01-19 21:15 | PROGRESS NOTE ---
DATE: 01/19/2017 SUBJECTIVE: The patient states that he is feeling better today. His abdomen remains tender, but is significantly better than before his endoscopy. He denies rectal bleeding. He has not had a bowel movement overnight. However, he tolerated GI soft diet without nausea, vomiting or a significant change in his abdominal pain. OBJECTIVE: Vital signs: On exam, his blood pressure is 132/97, pulse 104, respiration 20, temperature of 98 degrees. HEENT: Negative. Chest: Clear to auscultation with normal expiratory effort. Cardiovascular: Reveals a resting tachycardia with a regular rhythm. Abdomen: Soft with mild diffuse tenderness, but no rebound or guarding. OBJECTIVE DATA: Remarkable for hemoglobin of 11.7, hematocrit of 33.9, and a white count of 6.48. He has 136,000 platelets. Sodium is 140, potassium 3.9, chloride 101, CO2 of 25 , BUN 8, creatinine 1 with a glucose of 124. His calcium is 8.2, total bilirubin 0.68, AST 25, ALT 24, alkaline phosphatase 80, total protein 6 and albumin 4. DIAGNOSTICS: Remarkable for an EGD that revealed medium esophageal varices with no stigmata of bleeding, grade B to C erosive esophagitis, erosive gastritis, duodenitis and a duodenal ulcer with a whitish base. RECOMMENDATION: 1. The patient's hemoglobin continues to trend down. I suspect he is not equilibrated yet as he does not have clinical evidence of active bleeding. I would monitor with serial hemoglobins and hematocrit. 2. Continue Protonix drip for 3 days. Once his hemoglobin stabilizes, I would transition him to oral therapy. 3. Continue Carafate for a total of 12 weeks and reassess. 4. Continue gastrointestinal soft diet. 5. He will need a repeat EGD as an outpatient to re-assess the varices to determine the need for nadolol. 6. Additional recommendations to follow based on his clinical course. cc: MD Darrell Mauro MD MTDD
[2017-01-20] MEDS: CARAFATE LIQUID PO SCH ×5 (03:00→20:32)
[2017-01-20] MEDS: CREON PO SCH ×3 (06:08→16:37)
[2017-01-20] MEDS: HUMULIN R SUBQ SCH ×4 (06:08→20:32)
[2017-01-20] MEDS: PROTONIX 80 MG in NS 80 ML IV SCH ×2 (08:59→20:31)
[2017-01-20] MEDS: LEXAPRO PO SCH (09:00)
[2017-01-20] MEDS: COLACE PO SCH (09:00)
[2017-01-20] MEDS: CORGARD PO SCH (09:00)
[2017-01-20] MEDS: LANTUS SUBQ SCH (09:00)
[2017-01-20] MEDS: NS 1,000 ML IV SCH (09:04)
[2017-01-20] MEDS: DILAUDID PCA VIAL IV PRN (10:31)
[2017-01-20] MEDS ORDERED: SALINE LOCK IV FLUID XX ONE (13:22)
--- NOTE | 2017-01-20 14:12 | PROGRESS NOTE ---
DATE: 01/20/2017 SUBJECTIVE: The patient complains of pain and swelling in the left forefoot area. History of gout and he thinks his gout is flaring up. He does admit to mild swelling and pain in his left leg calf area. OBJECTIVE: Vital Signs: Afebrile, pulse 100, respirations 22, blood pressure 138/95, O2 saturation room air 100%. Cardiovascular: Regular rate and rhythm without murmur. Lungs: Clear to auscultation. Extremities: Prominent swelling and warmth, tenderness left forefoot area, left ankle. There is mild tenderness at the left calf and there is mild to moderate swelling of the left lower extremity. ASSESSMENT: 1. Left lower forefoot and foot pain and swelling. Thought gout flare up. 2. Left leg swelling, rule out deep venous thrombosis. 3. Duodenal ulcer. 4. Gastritis and esophagitis. 5. Moderate esophageal varices nonbleeding. 6. Pancreatic pseudocyst. 7. Chronic pancreatitis. 8. History of alcohol abuse. 9. History of narcotic-seeking. 10. Hypertension. PLAN: For now, continue IV PPI and oral Carafate. He is on his antihypertensive. He is on a GI soft diet and tolerating that. We will start Colcrys and check venous Doppler left lower extremity. Consider prophylaxis of DVT with Lovenox if this study is negative. For now, continue pain control with pain pump, per Dr. Gomez. cc: Darrell Tobias MD
[2017-01-20] MEDS: COLCRYS PO SCH ×2 (16:40→20:32)
[2017-01-20 18:50] LABS: MANUAL DIFF NEEDED? NO
[2017-01-20 18:52] LABS: BASO% 0.3 % (0.0-0.8); HEMOGLOBIN 12.3 g/dL (14.0-18.0); IMM GRAN# 0.03 X1000 (0.0-0.04); IMM GRAN% 0.3 % (0.0-0.5); LYMPH# 1.03 X1000 (1.2-3.4); LYMPH% 10.6 % (20.5-51.1); MCH 30.3 PG (27-31); MCHC 35.1 g/dL (33-37); MCV 86.2 FL (81-99); MONO# 0.86 X1000 (0.11-0.59); MONO% 8.8 % (1.7-9.3); MPV 10.1 FL (7.4-10.4); PLT 222 X1000 (130-400); RBC 4.06 XMIL (4.7-6.1)
[2017-01-20] MEDS: NORVASC PO SCH (20:32)
[2017-01-20] MEDS: PROTONIX IV SCH (20:32)
[2017-01-20] MEDS: SODIUM CHLORIDE 0.9% INJ PRN (20:33)
[2017-01-21] MEDS: CARAFATE LIQUID PO SCH ×2 (02:54→09:34)
--- NOTE | 2017-01-21 04:14 | PROGRESS NOTE ---
DATE: 01/20/2017 REFERRING PHYSICIAN: Leobardo Fry M.D. PRIMARY CARE PROVIDER: Darrell Tobias M.D. SUBJECTIVE: The patient continues to improve following his acute GI bleed. He reports resolution of his abdominal symptoms on Carafate and Protonix. He is concerned because his left foot is inflamed due to recent gout flare. Otherwise, he feels well and is anxious to go home. OBJECTIVE: Vital Signs: Blood pressure 137/97, pulse 94, temperature of 97.9 degrees. Abdominal: Exam reveals normoactive bowel sounds. The abdomen is soft and nontender. DIAGNOSTIC DATA: Reveals a hemoglobin of 12.3 with hematocrit of 35.0 and a white count of 9.73. He has 222,000 platelets. RECOMMENDATION: 1. The patient completed 72 hours on his Protonix drip tonight. Therefore, he will transition to Protonix 40 mg IV q.12 hours. 2. His dropping hemoglobin appears to have stabilized. If his hemoglobin is stable in the morning, it would be reasonable to discharge to home in begin outpatient management. 3. We will have the patient return to clinic in 4-6 weeks to assess interval progress. cc: MD Darrell Mauro MD [facility]
[2017-01-21] MEDS: HUMULIN R SUBQ SCH ×2 (06:05→11:48)
[2017-01-21] MEDS: CREON PO SCH (06:39)
[2017-01-21 07:02] LABS: MANUAL DIFF NEEDED? NO
[2017-01-21 07:09] LABS: BASO% 0.1 % (0.0-0.8); EOS# 0.13 X1000 (0.0-0.7); EOS% 1.9 % (0.0-10.0); HEMATOCRIT 32.6 % (42.0-52.0); HEMOGLOBIN 11.4 g/dL (14.0-18.0); IMM GRAN# 0.02 X1000 (0.0-0.04); IMM GRAN% 0.3 % (0.0-0.5); LYMPH% 17.2 % (20.5-51.1); MCH 30.3 PG (27-31); MCV 86.7 FL (81-99); MONO# 0.74 X1000 (0.11-0.59); MONO% 10.6 % (1.7-9.3); MPV 9.4 FL (7.4-10.4); NEUT% 69.9 % (42.2-75.2); PLT 161 X1000 (130-400); RBC 3.76 XMIL (4.7-6.1)
[2017-01-21] MEDS ORDERED: INSULIN PEN NEEDLES ONE (07:20)
[2017-01-21] MEDS ORDERED: SODIUM CHLORIDE 0.9% 10 ML ONE (07:21)
[2017-01-21 07:50] VITALS: BP 119/78
[2017-01-21] MEDS: CORGARD PO SCH (09:34)
[2017-01-21] MEDS: LEXAPRO PO SCH (09:34)
[2017-01-21] MEDS: COLACE PO SCH (09:34)
[2017-01-21] MEDS: PROTONIX IV SCH (09:34)
[2017-01-21] MEDS: COLCRYS PO SCH (09:34)
[2017-01-21] MEDS: LANTUS SUBQ SCH (09:34)
[2017-01-21] MEDS ORDERED: PROTONIX PO SCH (10:30)
[2017-01-21] MEDS ORDERED: NORCO-7.5 PO PRN (13:00)
--- NOTE | 2017-01-21 19:11 | DISCHARGE SUMMARY ---
ADMISSION DATE: 01/17/2017 DISCHARGE DATE: 01/21/2017 DIAGNOSES: 1. Duodenal ulcer with bleeding. 2. Gastritis and esophagitis. 3. Moderate esophageal varices which are not bleeding. 4. Pancreatic pseudocyst x2. 5. Chronic pancreatitis. 6. History of alcohol abuse longstanding improved recently. 7. History of narcotic seeking. 8. Left forefoot gout flare. 9. Hypertension. 10. Cirrhosis of the liver. 11. Depression. PROCEDURES: 1. CT scan of the abdomen and pelvis done on 01/17 revealing residual pseudocyst in the pancreas in the body and tail. Worsening fatty change of the liver noted. 2. Venous Doppler left lower extremity negative. 3. EGD done 01/18/[address] Encarnacion revealing moderate esophageal varices with no bleeding, grade B to C erosive esophagitis, erosive gastritis, severe duodenitis, duodenal ulcer with whitish base, prominent ampulla of Vater of unknown significance. CONSULTANTS: Dr. Kelsey Encarnacion, gastroenterology. REASON FOR ADMISSION/HOSPITAL COURSE: The patient is a 41-year-old white male who suffers from cirrhosis and from chronic pancreatitis. He also has a history of ulcers in the duodenum and stomach. He is followed by Dr. Kelsey Encarnacion and myself. He came in with abdominal pain and some possible hematemesis. He was given IV PPI drip for 3 days continuous and changed over to q.12 hour 40 mg dosing. He was maintained on Carafate. CT scan of the abdomen and pelvis showed chronic pancreatic pseudocyst and fatty liver change consistent with known difficulties he has had in the past. Patient complained of extensive pain and was placed on pain drip per Dr. Gomez for pain control. Dr. Encarnacion performed EGD with findings as above. He developed a gout flare in his left forefoot with negative venous Doppler left lower extremity noted. He had completed the 3- day IV continuous drip and Protonix and was without any active bleeding. It was felt he could be discharged home on 01/21/2017. We again counseled the patient to remain off of alcohol completely, avoid NSAIDs, encouraged anti-reflux measures. Did give him Republic 7.5 #30 no refills 1 p.o. q.6 hours p.r.n. pain abdomen. OTHER DISCHARGE MEDICATIONS: NovoLog FlexPen dosing per sliding scale t.i.d. with meals, Norvasc 10 mg p.o. at bedtime, nadolol 20 mg p.o. daily, Lantus 15 units subcu q.a.m., Colace 100 mg p.o. daily, Creon 1 p.o. with meals, Lexapro 20 mg p.o. daily, Protonix 40 mg p.o. q.12 hours, Colcrys 0.6 mg p.o. b.i.d. the next 3 weeks for gout flare, Carafate 1 g p.o. q.6 hours. FOLLOWUP: He will follow up in my office in 7-[address] Kelsey Encarnacion in 1 month. DISCHARGE LABS: Showed a white count 6.99, hemoglobin 11.4 and stable, hemoglobin initially on admission 15.3, platelets 161,000 at discharge. Blood sugars good at 96 at discharge. CMP unremarkable on 01/19 with creatinine 1.0, potassium 3.9, normal liver function test, amylase and lipase were normal during hospitalization and will repeat at his followup visit a CMP and CBC at that time. cc: Darrell Tobias MD
--- NOTE | 2017-01-24 12:23 | Extremity Venous Study ---
PROCEDURE NAME: Venous U/S Left Leg - 01/20/2017 This of the left lower extremity venous duplex, and color flow imaging study using the [employer] vivid E 9 ultrasound System with a 9 L-D transducer. REFERRING PHYSICIAN: Micheline nurse practitioner. 41-year-old male. BAR WELDER: Kelly Casas RVT. INDICATIONS: Swelling of the limb ICD-10 M79.89. FINDINGS: The left common femoral vein and its branches, deep and superficial femoral veins were satisfactorily imaged. They had flow through them and were compressible. Left popliteal vein and the deep veins below the left knee were all compressible and had flow through them. The superficial veins of the left lower extremity were compressible throughout their length. INTERPRETATION: No evidence of acute deep or superficial venous thrombosis of the left lower extremity. cc: MD Darrell Atkins MD
== END 2017-01-21 13:19 | disposition home or self-care (01) ==
LOC: SUPCPDRO → ED 13:19 → EDIPHOLD 21:06 → INTOOBSV 21:06 → 3N 01-18 12:27
PROVIDERS: ADMIT Family Medicine; ATTEND Family Medicine

== ENCOUNTER 2017-03-04 18:37 | Inpatient (IN) ==
[2017-03-04] MEDS ORDERED: NS 2,000 ML IV ONE ×2 (19:02→22:09)
--- NOTE | 2017-03-04 19:11 | PROVIDER DOCUMENTATION ---
This chart was entered by Mary Person Scribe, acting as scribe for Nigel Zapien MD. HPI-Abdominal Pain/GI Problem - General Chief Complaint: Abdominal Pain Stated Complaint: ABD PAIN Time Seen by Provider: 03/04/17 18:46 Source: patient Allergies/Adverse Reactions: Patient Allergies Allergy/AdvReac Type Severity Reaction Status Date / Time metoclopramide HCl * AdvReac DYSTONIA Verified 03/04/17 18:45 [From Reglan] Home Medications: Home Medication List Medication Instructions Recorded Confirmed Last Taken Type Insulin Aspart [Novolog Flexpen] See Protocol SQ TID 10/12/16 03/04/17 01/17/17 History Amlodipine Besylate [Norvasc] 10 mg PO QHS 11/14/16 03/04/17 01/17/17 History Insulin Glargine [Lantus] 15 unit SQ QAM 01/08/17 03/04/17 01/17/17 History Lipase/Protease/Amylase [Creon Dr 1 tab PO AC 01/08/17 03/04/17 01/17/17 History 12,000 Units Capsule] Nadolol 1 tab PO DAILY 01/08/17 03/04/17 01/17/17 History Colchicine [Colcrys] 0.6 mg PO BID #40 tablet 01/21/17 03/04/17 Unknown Rx Escitalopram Oxalate [Lexapro] 1 tab PO DAILY 03/04/17 03/04/17 Unknown History - History of Present Illness-ABD Nature of Presenting Problems: 41 year old WM with history of chronic pancreatitis, currently under the care of GI doctors in [place] and [place], who presents to the Ed with a persistent sharp 9/10 upper ABD pain, nausea,vomiting,tachycardia, and dry mucous membranes- worse in past 2-3 days. Pt was seen last week at [facility] for the same abdominal pain where he was evaluated with CT of chest/ abdomen/pelvis which was unremarkable. patient was advised to followup with his GI doctors which he has not seen so far but has a appointment next week. Denies recent alcohol intake,fever, or opiate use. Abdominal Pain Onset Location: reports: RUQ, LUQ, epigastric Pain Radiation: reports: no radiation Quality of Pain: reports: aching Severity in ED: reports: mild Onset/Duration: reports: 1 week ago Timing: reports: getting worse Associated Symptoms: reports: nausea, vomiting Bruising or Bleeding Gums?: No Similar Symptoms Previously?: Yes Recently seen or treated by another doctor?: Yes Review of Systems - Adult - REVIEW OF SYSTEMS - ADULT Constitutional: denies: chills, fever Eyes: reports: no symptoms reported Ears, Nose, Mouth & Throat: denies: ear pain, throat pain Cardiovascular: denies: chest pain, palpitations Respiratory: denies: cough, shortness of breath Gastrointestinal: reports: abdominal pain, nausea, vomiting Genitourinary: denies: dysuria, hematuria Musculoskeletal: denies: bone pain, muscle aches Integumentary: denies: skin sores/ulcer, skin thickening Neurological: reports: no symptoms reported Psychiatric: reports: no symptoms reported Endocrine: reports: no symptoms reported Hematologic/Lymphatic: reports: no symptoms reported Allergic/Immunologic: reports: no symptoms reported All Other Systems: Reviewed and Negative Past History - Adult - PAST MEDICAL HISTORY-ADULT Review of Records: reports: Nursing Assessment Review, Medications Reviewed Major Childhood Illnesses: reports: denies history Cardiovascular: reports: HTN Respiratory: reports: denies history Gastrointestinal: reports: GERD, pancreatitis, other (gastritis and esophagitis) Genitourinary: denies: kidney disease, kidney stones, polycystic kidney disease , chronic UTI's Musculoskeletal: reports: denies history Neurological: reports: denies history Psychiatric: reports: depression Endocrine/Immune: reports: Diabetes Other Conditions: reports: denies history Additional History: Alcoholic - PRIOR SURGERIES/PROCEDURES Surgical/Procedure History: reports: EGD, other (EOS performed 11/04/[address] Cervantes at [facility]) - PRIOR HOSPITALIZATIONS Prior Hospitalizations: reports: for similar symptoms - IMMUNIZATION STATUS Childhood Immunizations: See Nurse Assessment Flu Vaccine: See Nurse Assessment - FAMILY HISTORY Family History: reviewed, not pertinent - SOCIAL HISTORY Smoking: non-smoker Substance Use: none/never Alcohol Use Frequency: occasionally Physical Exam-General - PHYSICAL EXAM-ADULT Initial Vital Signs Reviewed: Yes - CONSTITUTIONAL General Appearance: alert - RESPIRATORY Respiratory: chest non-tender, lungs clear, normal breath sounds - CARDIOVASCULAR Cardiovascular: tachycardia - GASTROINTESTINAL (ABDOMEN) Abdominal Exam: normal bowel sounds, soft, tenderness (upper ABD tenderness) - SKIN Integumentary: normal color, normal turgor, warm/dry - PSYCHIATRIC Psych/Mental Status: normal mood/affect, normal thought content, normal thought process, oriented x 3 Progress - PLAN OF CARE/RESULTS Progress/Plan/Lab Results: Vital Signs - 8 hr 03/04/17 18:40 Temperature 99.9 F H Pulse Rate 146 H Respiratory Rate 18 Blood Pressure 161/127 O2 Sat by Pulse Oximetry 97 Orders Category Date Time Status Saline Loc DIRECTED Care 03/04/17 18:49 Active NPO Diet 03/04/17 18:49 Active acute [FLAT/UPRIGHT ABD/1 VIEW CHEST] [RAD] Stat Exams 03/04/17 18:50 Ordered CBC WITH ELECTRONIC DIFF [HEME] Stat Lab 03/04/17 18:49 Ordered COMPREHENSIVE METABOLIC PANEL [CHEM] Stat Lab 03/04/17 18:49 Ordered LIPASE [CHEM] Stat Lab 03/04/17 18:[address] W/POSS RFLX CULT [URINALYSIS] Stat Lab 03/04/17 18:49 Uncollected 0.9% Sodium Chloride Inj [Ns] 2,000 ml Med 03/04/17 19:02 Active IV 999 mls/hr Result Diagrams: 03/04/17 19:50 03/04/17 19:43 - EKG 1 Time of EKG reading by physician:: 18:54 EKG Read and Signed by:: Nigel Zapien EKG Interpretation (*Must complete 3 of following elements*): Abnormal Rate: 137 Rhythm: sinus tachycardia [place]: right QRS: RBB (incomplete) - XRAY 1 XRAY Study: Chest, Abdomen XRAY Interpretation: no acute disease, no obstruction, no free air - CONSULTS/PCP/HOSPITALIST Notification #1 *Consult/PCP/Hospitalist*: Dr. Cisneros Time Discussed: 22:05 Consult Disposition: Admit Departure - Departure Date of Disposition Decision: 03/04/17 Time of Disposition Decision: 22:08 DIAGNOSIS: Dehydration, Recurrent epigastric abdominal pain, Uncontrolled hypertension Chronic pancreatitis Qualifiers: Pancreatitis type: alcohol induced Qualified Code(s): K86.0 - Alcohol-induced chronic pancreatitis Disposition: ADMITTED INPATIENT 09 Certified Medical Emergency: Emergent Condition: Stable Referrals and Follow-Ups: Darrell Tobias MD [Primary Care Provider] - - Critical Care Note This patient required my direct & personal management of CC.: Yes This chart was documented by the indicated scribe, (Mary Person Scribe) and accurately reflects the services I performed and decisions made by me, Nigel Zapien MD, as attested by the provider's signature.
[2017-03-04] MEDS ORDERED: DILAUDID IV ONE ×2 (20:02→21:17)
[2017-03-04] MEDS ORDERED: ZOFRAN IV ONE (20:03)
[2017-03-04 20:07] LABS: MANUAL DIFF NEEDED? NO
[2017-03-04 20:08] LABS: EOS# 0.14 X1000 (0.0-0.7); EOS% 2.2 % (0.0-10.0); HEMATOCRIT 38.1 % (42.0-52.0); HEMOGLOBIN 13.6 g/dL (14.0-18.0); IMM GRAN# 0.17 X1000 (0.0-0.04); IMM GRAN% 2.7 % (0.0-0.5); LYMPH# 2.02 X1000 (1.2-3.4); LYMPH% 32.2 % (20.5-51.1); MCH 30.7 PG (27-31); MCHC 35.7 g/dL (33-37); MONO# 0.79 X1000 (0.11-0.59); MONO% 12.6 % (1.7-9.3); MPV 9.2 FL (7.4-10.4); NEUT% 49.3 % (42.2-75.2); PLT 171 X1000 (130-400); RBC 4.43 XMIL (4.7-6.1)
[2017-03-04 20:31] LABS: AGAP 15; ALBUMIN 3.8 g/dL (3.5-5.0); ALKALINE PHOSPHATASE 119 U/L (32-122); BUN 11 mg/dL (8-22); CALCIUM 8.3 mg/dL (8.8-10.2); CHLORIDE 100 mmol/L (98-107); COSMO 274; GOT 38 U/L (10-34); GPT 48 U/L (10-44); LIPASE 18 U/L (13-60); POTASSIUM 3.2 mmol/L (3.5-5.1); SODIUM 136 mmol/L (136-145); TCO2 21 mmol/L (25-35); TOTAL PROTEIN 5.7 g/dL (6.3-8.3)
[2017-03-04 20:45] LABS: URINE CULTURE PL NEEDED? NO
[2017-03-04 20:49] LABS: BILIRUBIN URINE NEGATIVE (NEGATIVE); BLOOD URINE NEGATIVE (NEGATIVE); CLARITY CLEAR (CLEAR); COLOR YELLOW; GLUCOSE URINE NEGATIVE (NEGATIVE); PH URINE 6.5; PROTEIN URINE NEGATIVE (NEGATIVE); URINE RBC <10 /HPF (<10); URINE SOURCE CLEAN CATCH; URINE WBC <10 /HPF (<10)
[2017-03-04 20:50] LABS: LEUKOCYTES URINE NEGATIVE (NEGATIVE); NITRITE URINE NEGATIVE (NEGATIVE); UROBILINOGEN URINE NORMAL
[2017-03-04] MEDS ORDERED: DILAUDID ONE (21:01)
--- NOTE | 2017-03-04 21:20 | Diag Imaging Result Doc PS360 ---
EXAM: FLAT/UPRIGHT ABD/1 VIEW CHEST INDICATION: abdominal pain TECHNIQUE: 3 views COMPARISON: Chest radiograph dated 02/26/2017 FINDINGS: There are unremarkable bowel gas and stool patterns. There is no obstructive bowel pattern. There is no evidence of large volume free abdominal gas. There is no evidence of organomegaly. There is evidence of prior granulomatous disease, stable. The lungs are grossly clear. There is no discrete pleural fluid collection or pneumothorax. The cardiomediastinal silhouette and central vasculature are grossly unremarkable. IMPRESSION: No evidence of acute pathology by plain radiograph. Electronically signed by Florentin Parker 03/04/2017 9:18 PM
[2017-03-04] MEDS ORDERED: NS 1,000 ML ONE (22:27)
[2017-03-04] MEDS: CATAPRES PO PRN (22:32)
--- NOTE | 2017-03-04 23:25 | EKG Report ---
Test Performed on : 03/04/2017 6:54:40 PM Test Reason : abdominal pain Blood Pressure : / mmHG Vent. Rate : 137 BPM Atrial Rate : 137 BPM P-R Int : 136 ms QRS Dur : 098 ms QT Int : 298 ms P-R-T Axes : 076 098 069 degrees QTc Int : 449 ms Sinus tachycardia. Rightward axis Incomplete right bundle branch block Borderline ECG When compared with ECG of 26-FEB-2017 12:09, No significant change was found Unconfirmed Result
[2017-03-05] MEDS: DILAUDID IV PRN ×7 (00:37→21:58)
[2017-03-05] MEDS: ZOFRAN IV PRN ×5 (00:37→19:00)
[2017-03-05] MEDS ORDERED: NS 1,000 ML IV SCH (09:11)
[2017-03-05] MEDS: CATAPRES PO PRN ×2 (09:18→13:10)
[2017-03-05] MEDS: CORGARD PO SCH (15:06)
[2017-03-05] MEDS ORDERED: D5 NS 1,000 ML IV SCH (15:13)
--- NOTE | 2017-03-05 16:04 | HISTORY AND PHYSICAL ---
CHIEF COMPLAINT: Abdominal pain. Nausea, vomiting. HISTORY OF PRESENT ILLNESS: This is a 41-year-old male with a past medical history of chronic pancreatitis, a history of alcohol abuse who presented to the emergency room complaining of epigastric pain, nausea and vomiting. He stated this pain was an aching pain with no radiation that has been present, waxed and waned for over a week. He also reports nausea and vomiting. He denied any black or bloody stools or vomitus. Of note, the patient has had multiple admissions for the same, being hospitalized multiple times, the most recent was January 17 where he underwent EGD and was found to have moderate esophageal varices with no bleeding, grade B to C erosive esophagitis, severe duodenitis. He was discharged on nadolol, Creon and Carafate along with his home medications. Patient states he has not taken the nadolol nor his regular medications regularly over the last few days because of nausea and vomiting. He denies any fever. During the interview he rates his pain as a 6/10. He is sitting still in the bed in no distress. DIAGNOSTIC STUDIES: CT scan of the there is a CT scan of the abdomen from due January 27 hospital visit which revealed a stable CT of the CS and at the body tail of the pancreas with severe atrophy of the distal pancreas. Abdominal x-ray today revealed no evidence of acute pathology. No obstruction no free gas. PAST MEDICAL HISTORY: 1. Alcohol abuse. The patient stated he had he drank alcohol a few weeks ago. He states that he is no longer drinking. 2. Chronic pancreatitis secondary to long-standing alcohol consumption. 3. Chronic liver disease secondary to alcohol consumption. 4. History of alcoholic liver cirrhosis with esophageal varices. 5. Hypertension. 6. History of acute kidney injury that was related to hepatorenal syndrome that required hemodialysis. 7. History of C. difficile infection. PAST SURGICAL HISTORY: Multiple endoscopes. 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 SOCIAL HISTORY: He lives alone. He is . He denies using any illicit drugs. HOME MEDICATIONS: A list will be obtained. REVIEW OF SYSTEMS: A 14 point review of systems is discussed with patient with pertinent positives stated in HPI. He denied chest pain, palpitations, dizziness, cough, PND, orthopnea, constipation, hematuria, dysuria, frequency, urgency. PHYSICAL EXAMINATION: GENERAL: This is a 41-year-old male who is sitting in the bed, in no distress. VITAL SIGNS: Blood pressure is 134/94 with a heart rate of 100, respirations are 18, temperature is 98.3 degrees with room air saturations 100%. HEENT: Head is normocephalic, atraumatic. Pupils equal, round, react to light. EOMs are intact. Sclerae anicteric. Mucous membranes are moist. NECK: Supple with trachea midline. CARDIOVASCULAR: Regular rate and rhythm. No rubs, murmurs, or gallops. S1 and S2 are appreciated. PULMONARY: Breath sounds are clear bilaterally. No work of breathing noted. Chest does rise and fall symmetrically with respiration. GASTROINTESTINAL: Abdomen is soft. Generalized tenderness to palpation with bowel sounds in all 4 quadrants. MUSCULOSKELETAL: Good range of motion of joints. NEUROLOGIC: He is alert and oriented x3. Cranial nerves 2-12 grossly intact. EXTREMITIES: No clubbing, cyanosis, or edema. Pulses are palpable x4. Calves are nontender. LABORATORY: WBC is 6.2 with a hemoglobin 13.6, hematocrit 38.1 and platelets 171,000. Sodium is 136, potassium 3.2, BUN 11, creatinine 0.9, with a glucose of 152. Lipase is 18. Urinalysis is essentially negative. Abdominal x-ray reveals no evidence of acute pathology. ASSESSMENT AND PLAN: 1. Dehydration. 2. Recurrent epigastric abdominal pain. 3. Uncontrolled hypertension. 4. Hypokalemia. 5. Chronic pancreatitis, alcohol induced. 6. History of esophageal varices. PLAN: 1. He will be admitted to the hospital. He will be NPO. We will give IV hydration as well as pain and nausea control. We will identify his home medications and continue as appropriate. He will be placed on pattern blood glucose with sliding scale insulin. We will continue his nadolol. Further treatments pending hospital course. The patient will ultimately need to be transferred to [facility] for evaluation by Dr. Encarnacion. 2. Further treatments pending hospital course. Dictated by RUFUS Sweet for Rodrick Cisneros MD cc: RUFUS Sweet MD
[2017-03-05] MEDS ORDERED: D50W SYRINGE IV ONE (16:25)
[2017-03-05] MEDS: HUMALOG DOSE (PARKWAY) SUBQ SCH (16:29)
[2017-03-05] MEDS: NS 1,000 ML IV SCH (20:56)
[2017-03-05] MEDS ORDERED: NORVASC PO SCH (21:00)
[2017-03-06] MEDS: HUMALOG DOSE (PARKWAY) SUBQ SCH ×2 (00:40→04:21)
[2017-03-06] MEDS: DILAUDID IV PRN ×8 (00:56→23:07)
[2017-03-06] MEDS: PHENERGAN PR PRN ×4 (00:56→23:07)
[2017-03-06] MEDS: ZOFRAN IV PRN ×4 (03:58→19:49)
[2017-03-06] MEDS: NS 1,000 ML IV SCH ×3 (06:58→21:44)
[2017-03-06 07:59] LABS: AGAP 14; ALKALINE PHOSPHATASE 87 U/L (32-122); BUN 10 mg/dL (8-22); CALCIUM 8.8 mg/dL (8.8-10.2); CHLORIDE 98 mmol/L (98-107); COSMO 270; GOT 38 U/L (10-34); GPT 46 U/L (10-44); POTASSIUM 4.4 mmol/L (3.5-5.1); SODIUM 136 mmol/L (136-145); TCO2 24 mmol/L (25-35); TOTAL BILIRUBIN 0.76 mg/dL (0.20-1.00); TOTAL PROTEIN 6.3 g/dL (6.3-8.3)
[2017-03-06 08:12] LABS: MCV 88.7 FL (81-99); MPV 9.3 FL (7.4-10.4); RBC 4.51 XMIL (4.7-6.1)
[2017-03-06] MEDS ORDERED: M.V.I.-12 10 ML, FOLIC ACID 1 MG, MAGNESIUM SULFATE 1 GM, THIAMINE 100 MG in NS 1,000 ML IV SCH (09:00)
[2017-03-06] MEDS: CORGARD PO SCH (09:35)
[2017-03-06] MEDS ORDERED: CATAPRES PO PRN (09:36)
[2017-03-06] MEDS: M.V.I.-12 10 ML, FOLIC ACID 1 MG, MAGNESIUM SULFATE 1 GM, THIAMINE 100 MG in NS 1,000 ML IV SCH (10:55)
[2017-03-06] MEDS: HUMALOG SUBQ SCH ×3 (11:17→21:00)
--- NOTE | 2017-03-06 15:49 | PROGRESS NOTE ---
DATE: 03/06/2017 SUBJECTIVE: Patient complains of epigastric pain. Says he had hematemesis prior to admission. OBJECTIVE: Vital signs: Afebrile, pulse 96, respirations 18, blood pressure 126/101, O2 saturation 99% on room air. CARDIOVASCULAR: Regular rate and rhythm. Lungs: Clear to auscultation. Abdomen: Mild epigastric tenderness. Extremities: No calf tenderness, cords or edema. Neurologic: Cranial nerves 2-12 are intact. Nonfocal. LABORATORY: White count 7.02, hemoglobin 14, platelets 188,000. CMP is normal with the exception of mildly elevated AST and ALT. Normal lipase levels have been found prior to today. ASSESSMENT: 1. Epigastric abdominal pain. 2. History of esophagitis and gastritis. 3. History of chronic pancreatitis. 4. Drug-seeking behavior long-standing. 5. History of alcohol abuse. 6. Cirrhosis of the liver with varices in the esophagus. 7. Pancreatic insufficiency with diabetes mellitus. 8. Hypertension. PLAN: Continue IV hydration. Keep him nothing per oral, add IV proton pump inhibitor. Continue pain control with Dilaudid and give him Phenergan as needed for nausea or vomiting. Dr. Encarnacion will be seeing the patient in consultation. Continue Norvasc and continue the nadolol for varices history. cc: Darrell Tobias MD
[2017-03-06] MEDS: PROTONIX IV SCH (16:43)
--- NOTE | 2017-03-06 21:07 | CONSULTATION ---
DATE OF CONSULTATION: 03/06/2017 [employer]IMARY [employer] G[employer]ZER: Dr. Kelsey Encarnacion. HISTORY OF PRESENT ILLNESS: This is a 41-year-old white male with a history of chronic pancreatitis related to alcohol abuse. He reported to the emergency room complaining of epigastric pain with nausea and vomiting that started on Monday. He has reported some hematemesis over the weekend. The patient is followed by Dr. Encarnacion. Last EGD was done in October 2016 that showed esophageal varices, gastritis, antral ulcer, duodenitis and early duodenal ulcer. He was also been evaluated by Dr. Fishman and had an EUS in October that showed most likely a benign pancreatic cyst. Biopsy was done. We did not receive the biopsy results. Patient denies constipation but reports nausea. He has not been able to eat much. He is taking Carafate with no real improvement in his symptoms. PAST MEDICAL HISTORY: alcohol abuse, chronic pancreatitis, chronic liver disease, history of esophageal varices and cirrhosis, hypertension, history of C. difficile. PAST SURGICAL HISTORY: He has had multiple endoscopies, has had an EUS by Dr. Fishman. ALLERGIES: Reglan causing dystonia. HOME MEDICATIONS: Colcrys 0.6 mg twice a day as needed, Norvasc 10 mg every night, Lexapro daily, Creon 1 before meals, Lantus 15 units daily, insulin per protocol, nadolol daily. SOCIAL HISTORY: History of alcohol abuse. REVIEW OF SYSTEMS: Per HPI. PHYSICAL EXAM: Vital Signs: Temperature 97.5 degrees, pulse 86, respirations 16, blood pressure 128/77. HEENT: Normocephalic, atraumatic. Pupils equal, round, reactive to light. Sclerae nonicteric. Respiratory: Lung sounds clear bilaterally. Cardiovascular: Regular rate and rhythm. Abdomen: Soft. Generalized tenderness with palpation. Bowel sounds are positive. Neurologic: Cranial nerves 2-12 grossly intact. Patient is awake, alert, oriented to person, place, and time. Extremities: No lower extremity edema noted. LABORATORY: Hematology. White count 7.02, hemoglobin 14.0, hematocrit 40.0, MCV 88.7, platelets 188,000. Chemistry. Sodium 136, potassium 4.4, chloride 98, CO2 24, BUN 10, creatinine 0.8, glucose 88, total bilirubin 0.76, AST 38, ALT 46, alkaline phosphatase 87, lipase 18. Abdominal x- ray showed no evidence of acute pathology. ASSESSMENT: 1. Abdominal pain. 2. Nausea. 3. Vomiting with questionable hematemesis. 4. Chronic pancreatitis, history of alcohol abuse. 5. Esophageal varices/cirrhosis. PLAN: Continue supportive care. Continue symptomatic treatment. Continue p.r.n. medications for pain and nausea. Will continue to follow until Dr. Encarnacion returns on Monday. Further plans will be made by her. I have discussed this case with Dr. Gaspar. Thank you for this consultation. Dictated by RUFUS Almazan for Barry Gaspar MD cc: RUFUS Prieto MD [facility], MD [facility]
[2017-03-06] MEDS: NORVASC PO SCH (23:12)
[2017-03-07] MEDS: ZOFRAN IV PRN ×3 (02:00→20:15)
[2017-03-07] MEDS: SODIUM CHLORIDE 0.9% INJ SCH ×2 (02:01→14:08)
[2017-03-07] MEDS: PROTONIX IV SCH ×2 (02:01→14:09)
[2017-03-07] MEDS: DILAUDID IV PRN ×8 (02:01→23:17)
[2017-03-07] MEDS: PHENERGAN PR PRN ×4 (04:54→23:16)
[2017-03-07] MEDS: HUMALOG SUBQ SCH ×4 (06:10→21:00)
[2017-03-07] MEDS: NS 1,000 ML IV SCH ×2 (06:57→20:14)
[2017-03-07] MEDS: CORGARD PO SCH (08:02)
[2017-03-07] MEDS: M.V.I.-12 10 ML, FOLIC ACID 1 MG, MAGNESIUM SULFATE 1 GM, THIAMINE 100 MG in NS 1,000 ML IV SCH (08:05)
--- NOTE | 2017-03-07 17:53 | PROGRESS NOTE ---
DATE: 03/07/2017 SUBJECTIVE: Patient complains of epigastric pain. OBJECTIVE: Vital signs: Afebrile, pulse 94, respirations 16, blood pressure 130/91, O2 saturation on room air 98-100%. CARDIOVASCULAR: Regular rhythm and rate without murmur. Lungs: Computed tomography angiography. Abdomen: Mild epigastric tenderness. Active bowel sounds. Extremities: No edema. Neurologic: Nonfocal. Cranial nerves intact. ASSESSMENT: 1. Epigastric abdominal pain with history of gastritis and ulcer disease, followed by Dr. Encarnacion. 2. Chronic pancreatitis. 3. History of alcoholism. 4. Manipulative drug-seeking behavior. 5. Hypertension. 6. Esophageal varices with cirrhosis. 7. Diabetes mellitus. PLAN: Continue conservative care with clear liquid diet. We will follow with Dr. Encarnacion in regard to his care. Reduce intravenous fluids slightly. Continue SSI with frequent serial Accu-Cheks. Continue Corgard, Protonix, Phenergan, multivitamin, Norvasc. cc: Darrell Tobias MD
[2017-03-07] MEDS: NORVASC PO SCH (20:15)
[2017-03-08] MEDS: PROTONIX IV SCH ×2 (01:30→12:35)
[2017-03-08] MEDS: ZOFRAN IV PRN ×4 (02:19→16:51)
[2017-03-08] MEDS: DILAUDID IV PRN ×7 (02:19→21:00)
[2017-03-08] MEDS: HUMALOG SUBQ SCH ×4 (06:47→23:46)
[2017-03-08] MEDS: CORGARD PO SCH (08:23)
[2017-03-08] MEDS: M.V.I.-12 10 ML, FOLIC ACID 1 MG, MAGNESIUM SULFATE 1 GM, THIAMINE 100 MG in NS 1,000 ML IV SCH (08:23)
[2017-03-08] MEDS: PHENERGAN PR PRN ×3 (08:25→21:01)
[2017-03-08] MEDS: NS 1,000 ML IV SCH ×2 (10:19→18:39)
--- NOTE | 2017-03-08 13:01 | PROGRESS NOTE ---
DATE: 03/08/2017 SUBJECTIVE: The patient is stable overall. He and his mother are awaiting workup per Dr. Encarnacion. OBJECTIVE: Afebrile, pulse 100, respirations 18, blood pressure 118/79, O2 saturation room air 95- 100%.CV: RRR without murmur. Lungs: CTA. Abdomen: Soft, nondistended. Active bowel sounds. Extremities: No significant lower extremity edema. No calf tenderness or cords. Neurologic: Cranial nerves are intact. No focal deficits appreciated. LAB DATA: Reviewed in the past 3 days. ASSESSMENT: 1. Epigastric abdominal pain with history of gastric ulcer disease. Followed by Dr. Encarnacion. 2. Chronic pancreatitis. 3. History of alcoholism. 4. Manipulative drug-seeking behavior. 5. Cirrhosis with esophageal varices. 6. Hypertension. 7. Diabetes mellitus. PLAN: Continue SSI. Continue IV PPI. Continued antiemetics. Clear liquids are in progress. We reduced the IV fluids slightly yesterday. Will wait Dr. Encarnacion's recommendation. cc: Darrell Tobias MD
[2017-03-08] MEDS: NORVASC PO SCH (21:02)
--- NOTE | 2017-03-08 23:10 | PROGRESS NOTE ---
DATE: 03/08/2017 SUBJECTIVE: The patient continues to have epigastric pain, nausea, heartburn with severe pyrosis and right upper quadrant pain. He notes that his stools have been black and that he had hematemesis of "beet red blood" on admission. He states that his abdominal pain has not improved despite medical management, and he would like to undergo an EGD tomorrow. OBJECTIVE: PHYSICAL EXAMINATION: Vital signs: On exam, his blood pressure is 125/88, pulse 82, respirations 21, temperature of 97.4 degrees. Abdominal: He has normoactive bowel sounds. The abdomen is soft with moderate epigastric and right upper quadrant tenderness. There is no rebound or guarding. OBJECTIVE DATA: Including his recent labs from 03/06/2017 were reviewed. RECOMMENDATION: 1. In light of the patient's history of a duodenal ulcer on his last EGD within the last few months and his report of hematemesis on admission, I recommend EGD. Consent was discussed and questions were answered. We will place the patient on the schedule for tomorrow afternoon for further evaluation. 2. Additional recommendations to follow based on his clinical findings and the endoscopic evaluation. cc: MD Darrell Mauro MD [facility], [place]
[2017-03-09] MEDS: DILAUDID IV PRN ×8 (00:17→23:33)
[2017-03-09] MEDS: ZOFRAN IV PRN ×3 (00:17→13:51)
[2017-03-09] MEDS: PROTONIX IV SCH ×3 (01:24→23:33)
[2017-03-09] MEDS: SODIUM CHLORIDE 0.9% INJ SCH ×3 (01:24→23:33)
[2017-03-09] MEDS: PHENERGAN PR PRN ×3 (04:21→18:42)
[2017-03-09] MEDS: HUMALOG SUBQ SCH ×4 (06:06→22:25)
[2017-03-09] MEDS: M.V.I.-12 10 ML, FOLIC ACID 1 MG, MAGNESIUM SULFATE 1 GM, THIAMINE 100 MG in NS 1,000 ML IV SCH (09:33)
[2017-03-09] MEDS: NS 1,000 ML IV SCH ×2 (09:33→22:27)
[2017-03-09] MEDS: CORGARD PO SCH (09:33)
--- NOTE | 2017-03-09 13:51 | PROGRESS NOTE ---
DATE: 03/09/2017 SUBJECTIVE: Patient is seen standing up stating he is adamant and ready anticipation of going down to get his EGD. This will be his fourth one in the past 14 months. He also has had 13 CT scans of the abdomen and pelvis. Complains of epigastric pain. OBJECTIVE: Afebrile, pulse 94, respirations 20, blood pressure 121/81, O2 saturation 100% on room air.CV: RRR without murmur. Lungs: CTA. Abdomen: Mild tenderness in epigastrium. Extremities: No calf tenderness, cords or edema. Neurologic: Nonfocal. Cranial nerves intact. ASSESSMENT: Unchanged from yesterday. PLAN: Await EGD per Dr. Encarnacion. Continue PPI. cc: Darrell Tobias MD
[2017-03-09] MEDS ORDERED: DIPRIVAN 1% ONE ×2 (15:03→17:52)
[2017-03-09] MEDS ORDERED: FENTANYL ONE (17:21)
[2017-03-09] MEDS: DILAUDID ONE ×2 (17:55→18:03)
[2017-03-09] MEDS ORDERED: DIFLUCAN 200 MG/NS 200 MG/100 ML IVPB IV ONE (18:26)
[2017-03-09] MEDS: NORVASC PO SCH (20:14)
[2017-03-09] MEDS: PHENERGAN IV PRN (20:27)
[2017-03-09] MEDS: SODIUM CHLORIDE 0.9% INJ PRN (20:27)
[2017-03-10] MEDS: PHENERGAN IV PRN ×6 (00:11→21:31)
[2017-03-10] MEDS: SODIUM CHLORIDE 0.9% INJ PRN ×2 (00:11→04:55)
[2017-03-10] MEDS: PROTONIX IV SCH ×2 (02:16→15:17)
[2017-03-10] MEDS: DILAUDID IV PRN ×6 (02:23→21:29)
[2017-03-10] MEDS: HUMALOG SUBQ SCH ×4 (06:31→21:43)
[2017-03-10 06:37] LABS: MANUAL DIFF NEEDED? NO
[2017-03-10 06:43] LABS: BASO% 0.5 % (0.0-0.8); EOS# 0.07 X1000 (0.0-0.7); EOS% 0.9 % (0.0-10.0); HEMATOCRIT 37.3 % (42.0-52.0); HEMOGLOBIN 12.6 g/dL (14.0-18.0); IMM GRAN# 0.05 X1000 (0.0-0.04); IMM GRAN% 0.6 % (0.0-0.5); LYMPH% 22.5 % (20.5-51.1); MCH 30.5 PG (27-31); MCHC 33.8 g/dL (33-37); MCV 90.3 FL (81-99); MONO# 0.91 X1000 (0.11-0.59); MONO% 11.4 % (1.7-9.3); MPV 9.6 FL (7.4-10.4); NEUT% 64.1 % (42.2-75.2); PLT 208 X1000 (130-400); RBC 4.13 XMIL (4.7-6.1)
[2017-03-10 07:03] LABS: AGAP 12; ALBUMIN 4.2 g/dL (3.5-5.0); ALKALINE PHOSPHATASE 82 U/L (32-122); BUN 12 mg/dL (8-22); CALCIUM 9.7 mg/dL (8.8-10.2); CHLORIDE 99 mmol/L (98-107); COSMO 277; GOT 22 U/L (10-34); GPT 24 U/L (10-44); POTASSIUM 4.4 mmol/L (3.5-5.1); SODIUM 138 mmol/L (136-145); TCO2 27 mmol/L (25-35); TOTAL BILIRUBIN 1.23 mg/dL (0.20-1.00); TOTAL PROTEIN 6.9 g/dL (6.3-8.3)
[2017-03-10] MEDS: CORGARD PO SCH (08:24)
[2017-03-10] MEDS: M.V.I.-12 10 ML, FOLIC ACID 1 MG, MAGNESIUM SULFATE 1 GM, THIAMINE 100 MG in NS 1,000 ML IV SCH (09:21)
--- NOTE | 2017-03-10 09:55 | Diag Imaging Result Doc PS360 ---
EXAM: US ABDOMEN-COMPLETE INDICATION: abd pain, inc LFTs, ETOH use COMPARISON: 10/15/2016 FINDINGS: The gallbladder appears normal with no stones, wall thickening, or pericholecystic fluid. The common bile duct is normal in diameter. Sonographic Griffin's sign was reported to be negative. There is vague hepatic parenchymal heterogeneity consistent with asymmetric patchy hepatic steatosis, stable. No discrete hepatic mass is appreciated, otherwise. Portal venous flow is hepatopedal. There is a prominent cystic lesion arising from the body and tail of the pancreas measuring 4.7 x 6.1 x 3.3 cm. There appears to be a small amount of internal debris and a few small septations. This is consistent with a known pancreatic pseudocyst, which can be seen on a recent CT dated 11/25/2016. The aorta and IVC are grossly unremarkable. The spleen is somewhat prominent measuring up to 15.3 cm in the greatest dimension. The kidneys are grossly unremarkable. IMPRESSION: 1.Prominent pancreatic pseudocysts, which was also seen on a previous CT. 2.Asymmetric stable hepatic steatosis. 3.Mild splenomegaly. Electronically signed by Florentin Parker 03/10/2017 9:53 AM
[2017-03-10] MEDS ORDERED: SALINE LOCK IV FLUID XX ONE (13:42)
[2017-03-10] MEDS: SODIUM CHLORIDE 0.9% INJ SCH (15:17)
--- NOTE | 2017-03-10 15:51 | PROGRESS NOTE ---
DATE: 03/10/2017 SUBJECTIVE: Patient is stable. Had EGD yesterday revealing Madelyn esophagitis. OBJECTIVE: Afebrile. Pulse 82, respirations 18, blood pressure 112/73, O2 saturation room air 98%. CV: RRR without murmur. Lungs CTA. Abdomen soft. Active bowel sounds. Minimal epigastric tenderness. No mass or organomegaly. No rebound or guarding. Extremities: No edema. Abdominal ultrasound done this morning. Reveals prominent pancreatic pseudocyst similar to previous exams. Asymmetric, stable, hepatic steatosis. Mild splenomegaly, ASSESSMENT: 1. Madelyn esophagitis. 2. Duodenal ulcer, improved. 3. Chronic pancreatitis with pancreatic pseudocyst. 4. Long history of alcoholism. 5. Manipulative behavior. 6. Cirrhosis of the liver with esophageal varices and mild splenomegaly. 7. Hypertension. 8. Diabetes mellitus. PLAN: Continue PPI. The patient has been started on Diflucan per Dr. Encarnacion, and she has advanced him to a low fat healthy heart diet. Continue Corgard and Norvasc. Add Carafate liquid. Discharge home when felt appropriate per Dr. Encarnacion. cc: Darrell Tobias MD
[2017-03-10] MEDS: CARAFATE LIQUID PO SCH ×2 (15:55→21:31)
[2017-03-10] MEDS: DIFLUCAN 100 MG/NS 100 MG/50 ML IVPB IV SCH (17:36)
--- NOTE | 2017-03-10 19:32 | PROGRESS NOTE ---
DATE: 03/10/2017 SUBJECTIVE: The patient states that he has done significantly better since he was placed on Diflucan. He reports some esophageal pain after eating and is requesting narcotic pain medications. According to the nurses, he is eating a significant amount of food and does not appear to have difficulty unless Dr. Tobias or Mateo are in the room. OBJECTIVE: Vital Signs: Blood pressure is 112/73, pulse 82, respiration 18, temperature of 98.0 degrees. Pulmonary Examination: Lungs are clear to auscultation with normal respiratory effort. Cardiovascular Examination: Reveals regular rate and rhythm with no murmurs, gallops, or rubs. Abdominal Examination: Reveals normoactive bowel sounds. The abdomen is soft with mild epigastric tenderness that is inconsistent but no rebound or guarding. OBJECTIVE DATA: Reveals a hemoglobin of 12.6 with hematocrit of 37.3 and a white count of 8.00. He has 208,000 platelets. Sodium is 138, potassium 4.4, chloride 99, CO2 27, BUN 12, creatinine 1.1 with a glucose of 127. Calcium is 9.7, total bilirubin is 1.23, AST 22, ALT 24, alkaline phosphatase 82, total protein 6.9, albumin 4.2. His C. reactive protein is 56.79. IMPRESSION: 1. Nausea with vomiting. 2. Hematemesis. 3. Epigastric pain. 4. Acute on chronic pancreatitis. 5. Alcohol liver disease. 6. Polysubstance abuse. 7. Anemia. 8. Cirrhosis. 9. Madelyn esophagitis. 10. Portal hypertension with medium varices. RECOMMENDATIONS: 1. The patient's hemoglobin is decreased today but has been relatively stable over the last several months. He had a esophagogastroduodenoscopy which showed ulcerative changes in the stomach and the first part of the small bowel. Therefore, I recommend continuing his current therapy. 2. The patient should undergo an outpatient colonoscopy if his abdominal pain persists. He was previously scheduled for an outpatient colonoscopy but failed to show for the procedure. 3. He has severe Madelyn esophagitis. I would complete a 21 day course of Diflucan. 4. For the ulcerations, I would continue the PPI therapy as an outpatient. If his pain persists after treatment of the Madelyn esophagitis, one can continue a 12 week course of Diflucan. 5. He has had transient rise in his liver function tests but his abdominal ultrasound was essentially unremarkable. I recommend clinical monitoring. 6. He will need followup regarding his HIV, CMP and fecal elastase. 7. The patient has requested pain medications which are inappropriate for treatment of his esophageal pain after candidiasis. I recommend continuing his current treatment. Given his history of polysubstance abuse, I would not prescribe narcotic pain medications as per the request of the patient. 8. The patient is currently eating and ambulatory. He is stable from a GI perspective to be discharged to home over the weekend. I recommend outpatient clinic followup in 4-6 weeks to assess interval progress. Again if his abdominal pain persists, I would recommend a colonoscopy despite his age of 41 years. cc: MD Darrell Mauro MD
[2017-03-10] MEDS: NORVASC PO SCH (21:31)
--- NOTE | 2017-03-10 22:53 | OPERATIVE NOTE ---
PROCEDURE DATE: 03/09/2017 REFERRING PHYSICIAN: Darrell Tobias M.D. INDICATIONS FOR PROCEDURE: 1. Nausea with vomiting. 2. Hematemesis. 3. Melena. 4. Abdominal pain. 5. History of peptic ulcer disease with a superficial duodenal ulcer recently diagnosed on endoscopy. 6. Alcohol abuse. 7. History of acute and chronic pancreatitis. PROCEDURE PERFORMED: Esophagogastroduodenoscopy with biopsy. CONSENT: Informed consent was obtained from the patient prior to the procedure. The risks, benefits, and alternatives were discussed. MEDICATION: The patient received monitored anesthesia care. PERFORMING PHYSICIAN: Kelsey Encarnacion M.D. ASSISTANTS: 1. ST. [facility] 2. Jo Ann Fish RN. 3. Marco A Porras CRNA. 4. Brady Ortiz M.D. (anesthesia). COMPLICATIONS: There were no complications. ESTIMATED BLOOD LOSS: Less than 1 mL. SPECIMEN REMOVED: Duodenal biopsy. FINDINGS: After sedation was achieved, the upper endoscope was inserted to the 2nd portion of the duodenum. The hypopharynx appeared endoscopically normal. In the tubular esophagus, there was severe Madelyn esophagitis the entire length of the esophagus. There were medium varices that were visible. The GE junction appeared irregular at 40 cm from the incisors. In the gastric lumen, there was severe erosive gastritis but no active bleeding. On retroflexed view, there were no gastric varices seen. There were 2 prepyloric erosions versus early ulcers but there was no stigmata of bleeding and the base was whitish and clean. The pylorus was inflamed but patent. In the duodenal bulb, there was severe duodenitis. There was interval healing of the duodenal ulcer. The 1st, 2nd and 3rd portion of the duodenum were inflamed. The ampulla appeared normal with visible bilious flow. After biopsies from the duodenum were obtained, the lumen was decompressed and the scope was removed without incident. IMPRESSION: 1. Severe Madelyn esophagitis. 2. Medium varices. 3. Erosive gastritis. 4. Prepyloric erosions versus early ulcers. 5. Inflamed pylorus. 6. Severe duodenitis. 7. Interval healing of the duodenal ulcer. RECOMMENDATION: 1. Await biopsy results. 2. Continue Protonix 40 mg IV q.12 hours while an inpatient. He should transition to a q.12 hour acting PPI therapy such as omeprazole or Prevacid for outpatient use. I would continue a PPI therapy once daily as an outpatient. 3. Begin Diflucan. I will administer Diflucan 200 mg IV today followed by 100 mg daily for 20 days. As he transitions to a full diet, I would transition him to oral Diflucan as an outpatient. 4. Please check a fecal elastase, CBC, HIV and recheck his CMP as he had elevated liver function tests and unexplained candidiasis. I suspect it may be related to his diabetes but we have to rule out immuno competency and assess his pancreatic function. 5. The patient has had a transient rise in his liver function tests. Please check an abdominal ultrasound in the morning. This ultrasound should not preclude discharge to home from a GI perspective. 6. Will have the patient return to clinic in 4 weeks after hospital discharge to reassess his clinical progress. cc: MD Darrell Mauro MD MTDD
[2017-03-11] MEDS: PROTONIX IV SCH ×2 (02:15→14:09)
[2017-03-11] MEDS: CARAFATE LIQUID PO SCH ×4 (02:15→21:33)
[2017-03-11] MEDS: ULTRAM PO PRN ×2 (07:12→21:37)
[2017-03-11] MEDS: HUMALOG SUBQ SCH ×4 (07:12→20:40)
[2017-03-11] MEDS: PHENERGAN IV PRN ×3 (07:13→21:37)
[2017-03-11 08:24] LABS: HEPATITIS PROFILE ACUTE SEE COMMENTS
[2017-03-11 09:18] LABS: HIV ANTIBODY SCREEN SEE COMMENTS
[2017-03-11] MEDS: FLINTSTONES COMPLETE PO SCH (09:21)
[2017-03-11] MEDS: CORGARD PO SCH (09:22)
--- NOTE | 2017-03-11 12:55 | PROGRESS NOTE ---
DATE: 03/11/2017 SUBJECTIVE: Patient says he is still hurting in his esophagus and his abdomen. He does not feel like he can make it at home today. His ultrasound showed a pancreatic pseudocyst and fatty liver. His liver function tests have improved. his bilirubin did go up to 1.23. I will check this again in the morning. OBJECTIVE: Vital Signs show a blood pressure of 117/79, respirations 16, pulse 84, temperature 98.2 degrees Fahrenheit. HEENT: Normocephalic and intact. PERRLA. clear. Lungs are clear to auscultation and percussion without rhonchi, rales, or wheezes. Heart: Regular rate and rhythm without murmurs, gallops, or friction rubs. Abdomen is a little tender in the epigastric area. Neurological exam intact grossly. ASSESSMENT: 1. Esophagitis from Madelyn. 2. Pancreatic pseudocyst. 3. Elevated liver function tests. PLAN: We will watch today. If improved, we will plan on discharge in the morning depending on how he feels. cc: MD Darrell Pantoja Jr, MD
[2017-03-11] MEDS: SODIUM CHLORIDE 0.9% INJ SCH (14:09)
[2017-03-11] MEDS: SODIUM CHLORIDE 0.9% INJ PRN ×2 (16:47→21:38)
[2017-03-11] MEDS: DIFLUCAN 100 MG/NS 100 MG/50 ML IVPB IV SCH (17:27)
[2017-03-11] MEDS: NORVASC PO SCH (21:33)
[2017-03-12] MEDS: CARAFATE LIQUID PO SCH ×2 (02:07→09:45)
[2017-03-12] MEDS: PROTONIX IV SCH (02:07)
[2017-03-12] MEDS: PHENERGAN IV PRN ×3 (04:02→13:31)
[2017-03-12] MEDS: ULTRAM PO PRN ×2 (04:02→12:20)
[2017-03-12] MEDS: SODIUM CHLORIDE 0.9% INJ PRN ×3 (04:03→13:32)
[2017-03-12] MEDS: HUMALOG SUBQ SCH ×2 (06:23→12:20)
[2017-03-12 07:06] LABS: MANUAL DIFF NEEDED? NO
[2017-03-12 07:10] LABS: BASO% 0.8 % (0.0-0.8); EOS# 0.09 X1000 (0.0-0.7); EOS% 1.4 % (0.0-10.0); HEMATOCRIT 37.8 % (42.0-52.0); HEMOGLOBIN 12.8 g/dL (14.0-18.0); IMM GRAN# 0.06 X1000 (0.0-0.04); IMM GRAN% 0.9 % (0.0-0.5); LYMPH# 1.71 X1000 (1.2-3.4); MCHC 33.9 g/dL (33-37); MCV 88.7 FL (81-99); MONO# 0.69 X1000 (0.11-0.59); MONO% 10.5 % (1.7-9.3); MPV 9.9 FL (7.4-10.4); NEUT% 60.4 % (42.2-75.2); PLT 229 X1000 (130-400); RBC 4.26 XMIL (4.7-6.1)
[2017-03-12 07:37] LABS: AGAP 14; ALBUMIN 3.8 g/dL (3.5-5.0); ALKALINE PHOSPHATASE 95 U/L (32-122); BUN 14 mg/dL (8-22); CALCIUM 8.8 mg/dL (8.8-10.2); CHLORIDE 99 mmol/L (98-107); COSMO 285; GOT 11 U/L (10-34); GPT 18 U/L (10-44); POTASSIUM 4.4 mmol/L (3.5-5.1); SODIUM 138 mmol/L (136-145); TCO2 25 mmol/L (25-35); TOTAL PROTEIN 6.1 g/dL (6.3-8.3)
[2017-03-12 09:38] VITALS: BP 123/77
[2017-03-12] MEDS: CORGARD PO SCH (09:45)
[2017-03-12] MEDS: FLINTSTONES COMPLETE PO SCH (09:45)
--- NOTE | 2017-03-12 13:42 | PROGRESS NOTE ---
DATE: 03/12/2017 SUBJECTIVE: Patient says he is feeling much better now. He is ready to go home. OBJECTIVE: Vital Signs: Stable with a blood pressure 123/77, respirations 18, pulse 81, temperature 97.7 degrees Fahrenheit. HEENT: Normocephalic. EOMs intact. PERRLA. Throat clear. Lungs: Clear to auscultation and percussion without rhonchi, rales, or wheezes. Heart: Regular rate and rhythm without murmurs, gallops, or friction rubs. Abdomen: Soft. Active bowel sounds. Only mild epigastric tenderness at most. He says he still has a little discomfort in his esophagus and stomach but is feeling much better. Neurological: Intact grossly. ASSESSMENT: 1. Esophagitis from Feliz. 2. Diabetes mellitus. 3. Alcoholism. 4. Pancreatic pseudocyst. 5. Elevated liver function tests which have improved. 6. Fatty liver. Hepatitis profiles were negative. Human immunodeficiency virus was negative. Will discharge home on his regular home medicines plus we will give him [address] him on Diflucan 200 mg daily for 2 weeks. He is to follow up with Dr. Tobias by calling his office tomorrow to set up an appointment. He will follow up also with Dr. Encarnacion. cc: MD Darrell Pantoja Jr, MD
--- NOTE | 2017-03-19 08:25 | DISCHARGE SUMMARY ---
ADMISSION DATE: 03/04/2017 DISCHARGE DATE: 03/12/2017 DIAGNOSES: 1. Madelyn esophagitis with ulcerations. 2. Hematemesis. 3. Acute on chronic pancreatitis. 4. Alcoholic liver disease. 5. Polysubstance abuse. 6. Anemia. 7. Cirrhosis of the liver. 8. Portal hypertension with moderate esophageal varices. 9. Erosive gastritis, severe duodenitis, interval healing of recent duodenal ulcer. 10. Hypertension. 11. Insulin-dependent diabetes mellitus. 12. Depression. 13. Gout. CONSULTANTS: Dr. Kelsey Encarnacion, gastroenterology. PROCEDURES: 1. Abdominal x-ray on 03/04/2017. No evidence of acute chest or abdominal pathology. 2. Abdominal ultrasound done 03/10/2017 revealing prominent pancreatic pseudocyst also seen on previous CT scans, asymmetric stable hepatic steatosis, mild splenomegaly. 3. EGD done 03/10/2017 revealing severe Madelyn esophagitis, moderate esophageal varices, erosive gastritis, severe duodenitis, prepyloric erosions, inflamed pylorus, interval healing of previous duodenal ulcer. REASON FOR ADMISSION AND HOSPITAL COURSE: The patient is a 41-year-old, white male with a longstanding history of alcoholism that has lately been turning his attention to narcotics. He came in with complaints of hematemesis and epigastric pain, and was treated with PPIs and Carafate. Abdominal ultrasound showed his chronic pancreatic pseudocyst had been present long- term and followed by Dr. Fishman and Dr. Encarnacion. Dr. Encarnacion was consulted and Dr. Gaspar was on-call for her and monitored the patient until Dr. Encarnacion got back. She then performed abdominal ultrasound with results as above and EGD with results as above. The patient was treated with Diflucan. He did well after the EGD and it was felt that he could be discharged home. DISCHARGE MEDICATIONS: NovoLog FlexPen sliding scale with meals t.i.d., Norvasc 10 mg p.o. daily, nadolol 20 mg p.o. daily, Lantus 15 units subcutaneous q.a.m., Creon 12,000 units p.o. a.c., Lexapro 10 mg p.o. daily, Colcrys 0.6 mg p.o. b.i.d. p.r.n. gout flare-up, Carafate liquid 1 g p.o. q.6 hours, Ultram 50 mg p.o. q.6 hours p.r.n. pain (#20, no refills), Diflucan 200 mg p.o. daily x14 days. FOLLOWUP: He will follow up with Dr. Encarnacion in 1-2 weeks and with me in 1-2 weeks. NOTABLE LAB STUDIES: Show hemoglobin 12.8, platelets normal at 229,000, white count normal. CMP showed mild increase in LFTs which defervesced during the hospitalization. Urinalysis normal. Hepatitis profile was obtained and subsequently came back negative, as did HIV 1 and 2 antibody screen. cc: Darrell Tobias MD
== END 2017-03-12 14:06 | disposition home or self-care (01) ==
LOC: P.ED 18:37 → P.MEDSURG 18:37 → SUATTDRO 22:54 → OBSVTOIN 22:54 → 3N 03-05 19:34
PROVIDERS: ADMIT Family Medicine; ATTEND Family Medicine